=== PATIENT | male | born 1975 | race Asian ===

== ENCOUNTER 2017-12-08 01:37 | Inpatient (IN) | payer MEDICAID ==
[2017-12-08] VITALS (9 sets, daily range): BP systolic 107–132; BP diastolic 59–87
[~2017-12-08] VITALS: Ht 165.1 cm; Wt 64.9 kg
[2017-12-08] MEDS ORDERED: PREDNISOLO15 MG/5 M1 ORAL (01:46)
[2017-12-08] MEDS ORDERED: CALCITRIOL1 MCG/1 ML IV (01:46)
[2017-12-08] MEDS ORDERED: LEVETIRACE100 MG/1 M GT (01:46)
[2017-12-08] MEDS ORDERED: PANTOPRAZOLE SO40 MG ORAL (01:46)
[2017-12-08] MEDS ORDERED: ATENOLOL25 MG ORAL (01:46)
[2017-12-08] MEDS ORDERED: URSO FORTE500 MG PO (02:03)
[2017-12-08] MEDS ORDERED: Lactulose 20gm/30ml UDC ORAL ONE (02:15)
[2017-12-08 02:31] LABS: HEMATOCRIT 22.3 % (42.0-52.0); MEAN CORPUSCULAR VOLUME 74 FL (80-99); PLATELET COUNT 117 K/UL (150-450); RED BLOOD COUNT 3.02 M/UL (4.70-6.10); RED CELL DISTRIBUTION WIDTH 18.4 % (11.6-14.8)
[2017-12-08 02:37] LABS: BILIRUBIN, URINE 3+ (NEGATIVE); GLUCOSE, URINE (UA) NEGATIVE (NEGATIVE); KETONES,URINE 3+ (NEGATIVE); LEUKOCYTE ESTERASE ,URINE 2+ (NEGATIVE); NITRITE,URINE POSITIVE (NEGATIVE); PH,URINE 6.5 (4.5-8.0); PROTEIN,URINE 2+ (NEGATIVE); UROBILINOGEN,URINE 12 MG/DL (0.0-1.0)
--- NOTE | 2017-12-08 02:46 | Emergency Room Report ---
History of Present Illness General Chief Complaint: Altered Mental Status Source: Family Member Present Illness HPI 41YOM brought by family for AMS History of ETOH abuse, ?liver failure Came back from [place] >1 month ago HPI limited by AMS Allergies: Coded Allergies: No Known Allergies (Unverified , 12/08/17) Patient History Past Medical History: other - Liver failure Past Surgical History: unable to obtain Pertinent Family History: unable to obtain Social History: Reports: alcohol use Immunizations: UTD Reviewed Nursing Documentation: PMH: Agreed, PSxH: Agreed Nursing Documentation-PMH Past Medical History Deferred: Pt Cognitively Impaired Review of Systems All Other Systems: limited - AMS Physical Exam Vital Signs Date Time Temp Pulse Resp B/P (MAP) Pulse Ox O2 Delivery O2 Flow Rate FiO2 12/08/17 01:35 113 18 107/59 98 Room Air 12/08/17 01:37 98.0 98.0 Sp02 EP Interpretation: reviewed, normal General Appearance: normal inspection, alert, non-toxic, other - Yelling in stretcher, writhing, Chronically Ill Head: normocephalic, atraumatic Eyes: bilateral eye PERRL, bilateral eye EOMI ENT: normal ENT inspection, hearing grossly normal, normal pharynx, no angioedema, normal voice, TMs + canals normal, uvula midline, moist mucus membranes Neck: normal inspection, full range of motion, supple, thyroid normal, no meningismus, no bony tend Respiratory: normal inspection, lungs clear, normal breath sounds, no rhonchi, no respiratory distress, no retraction, no accessory muscle use, no wheezing, speaking full sentences Cardiovascular #1: regular rate, rhythm, no edema, no JVD, normal capillary refill Gastrointestinal: normal inspection, normal bowel sounds, non tender, soft, no mass, no peritonitis, non-distended, no guarding, no hernia, no pulsatile mass Genitourinary: no CVA tenderness Musculoskeletal: normal inspection, back normal, normal range of motion, no calf tenderness, pelvis stable, Servando's Sign negative Neurologic: normal inspection, alert, responsive, pharmacist per diem III-XII nml as tested, motor strength/tone normal, cerebellar normal, normal gait, speech normal Psychiatric: normal inspection, judgement/insight normal, mood/affect normal, no suicidal/homicidal ideation, no delusions Skin: no rash, jaundice Lymphatic: normal inspection, no adenopathy Medical Decision Making Diagnostic Impression: Primary Impression: Altered mental status Qualified Codes: R41.0 - Disorientation, unspecified Additional Impressions: Hepatic encephalopathy Anemia Qualified Codes: D64.9 - Anemia, unspecified UTI (urinary tract infection) Qualified Codes: N30.01 - Acute cystitis with hematuria Liver failure Qualified Codes: K72.10 - Chronic hepatic failure without coma ER Course AMS likely multifactorial - Nitrite + UTI - given Zosyn - Anemia Hb 7 - transfused 2U PRBC in ED - Hepatic enceph - elevated ammonia level ~200. Given lactulose. Likely d/t liver failure, elevated bili/alk phos, - Elevated troponin 0.07. ECG difficult to interpret d/t artifact/patient altered, noncooperative. Was given ASA for elevated trop, indeterminate ECG. Panel admit to Dr Gray Endorsed to Dr Hernandez at 431am EKG Diagnostic Results Rate: tachycardiac Rhythm: NSR ST Segments: no acute changes Rhythm Strip Diag. Results EP Interpretation: yes Rate: 111 Rhythm: NSR, no PVC's, no ectopy Last Vital Signs Date Time Temp Pulse Resp B/P (MAP) Pulse Ox O2 Delivery O2 Flow Rate FiO2 12/08/17 01:37 98.0 118 18 107/59 100 Room Air 98.0 Status: improved Disposition: ADMITTED INPATIENT Condition: Serious Referrals: NOT CHOSEN GRADY/,REFERRING (PCP) SIDRA MYRICK M.D. Dec 08, 2017 02:46
[2017-12-08 02:47] LABS: ANION GAP 17 mmol/L (5-15); BLOOD UREA NITROGEN 5 mg/dL (7-18); CALCIUM 9.1 MG/DL (8.5-10.1); CARBON DIOXIDE 22 MMOL/L (21-32); CHLORIDE 98 MMOL/L (98-107); CREATININE 1.3 MG/DL (0.55-1.30); SODIUM 137 MMOL/L (136-145)
[2017-12-08 02:48] LABS: AMMONIA 195 umol/L (11-32)
[2017-12-08 02:57] LABS: ALANINE AMINOTRANSFERASE 98 U/L (12-78); ALBUMIN 2.4 G/DL (3.4-5.0); ALBUMIN/GLOBULIN RATIO 0.4 (1.0-2.7); ALKALINE PHOSPHATASE 198 U/L (46-116); ASPARTATE AMINO TRANSFERASE 400 U/L (15-37)
[2017-12-08 03:11] LABS: APPEARANCE,URINE CLOUDY; COLOR,URINE AMBER
[2017-12-08] MEDS ORDERED: Zosyn 3.375gm inj ONE (03:29)
[2017-12-08] MEDS ORDERED: Piperacillin/Tazobactam 3.375 GM in NS 110 ML IVPB ONE (03:30)
[2017-12-08 03:48] LABS: INR 1.5 (0.9-1.1)
[2017-12-08] MEDS ORDERED: LORazepam 1mg tab ORAL PRN (05:45)
[2017-12-08] MEDS ORDERED: Miralax 17gm pkt ORAL PRN (05:45)
--- NOTE | 2017-12-08 10:01 | GI Initial Consult Note ---
History of Present Illness General Date patient seen: Dec 08, 2017 Time patient seen: 09:55 Reason for Hospitalization: Altered Mental Status Referring physician: LORRAINE Reason for Consultation: HEPATIC ENCEPHALOPATHY Present Illness HPI 41YOM brought by family for AMS History of ETOH abuse, ?liver failure Came back from [place] >1 month ago HPI limited by AMS GI consulted for hepatic encephalopathy. Pt seen in tele, awake alart resting in bed with no s/sx of N/V/D or agitation. ROS limited, AMS. Currently receiving abdominal U/S. Abdominal distention noted with ascites. Presents today with anemia, transaminitis with elevated alkaline phos, elevated troponin and elevated lipase levels. Unknown history of endoscopy colonoscopies. Home Meds Reported Medications Ursodiol (HILDA FORTE) 500 Mg Tablet, 500 MG PO, TAB 12/08/17 Atenolol* (TENORMIN*) 25 Mg Tablet, 25 MG ORAL DAILY, TAB 12/08/17 Pantoprazole* (PANTOPRAZOLE*) 40 Mg Tablet.dr, 40 MG ORAL DAILY, TAB 12/08/17 Prednisolone* (PRELONE*) 15 Mg/5 Ml Solution, 15 MG ORAL, ML 12/08/17 Calcitriol (CALCITRIOL*) 1 Mcg/1 Ml Ampul, 0.25 MCG IV, MCG 0 Refills 12/08/17 Levetiracetam* (LEVETIRACETAM*) 100 Mg/1 Ml Solution, 750 MG GT BID 12/08/17 Med list reviewed/reconciled: Yes Allergies: Coded Allergies: No Known Allergies (Unverified , 12/08/17) Patient History Limited by: medical condition History Provided By: Medical Record PMH Narrative Past Medical History: other - Liver failure Past Surgical History: unable to obtain Pertinent Family History: unable to obtain Social History: Reports: alcohol use Immunizations: UTD Reviewed Nursing Documentation: PMH: Agreed, PSxH: Agreed Nursing Documentation-PMH Past Medical History Deferred: Pt Cognitively Impaired Social History: Reports: other - unknown Review of Systems All Other Systems: limited Physical Exam Vital Signs Date Time Temp Pulse Resp B/P (MAP) Pulse Ox O2 Delivery O2 Flow Rate FiO2 12/08/17 01:35 113 18 107/59 98 Room Air 12/08/17 01:37 98.0 98.0 Sp02 EP Interpretation: reviewed, normal Labs Laboratory Tests Test 12/08/17 02:15 12/08/17 03:30 White Blood Count 12.0 K/UL (4.8-10.8) H Red Blood Count 3.02 M/UL (4.70-6.10) L Hemoglobin 7.0 G/DL (14.2-18.0) L Hematocrit 22.3 % (42.0-52.0) L Mean Corpuscular Volume 74 FL (80-99) L Mean Corpuscular Hemoglobin 23.2 PG (27.0-31.0) L Mean Corpuscular Hemoglobin Concent 31.4 G/DL (32.0-36.0) L Red Cell Distribution Width 18.4 % (11.6-14.8) H Platelet Count 117 K/UL (150-450) L Mean Platelet Volume 6.8 FL (6.5-10.1) Neutrophils (%) (Auto) % (45.0-75.0) Lymphocytes (%) (Auto) % (20.0-45.0) Monocytes (%) (Auto) % (1.0-10.0) Eosinophils (%) (Auto) % (0.0-3.0) Basophils (%) (Auto) % (0.0-2.0) Urine Color Esther Urine Appearance Cloudy Urine pH 6.5 (4.5-8.0) Urine Specific Wilson 1.010 (1.005-1.035) Urine Protein 2+ (NEGATIVE) H Urine Glucose (UA) Negative (NEGATIVE) Urine Ketones 3+ (NEGATIVE) H Urine Occult Blood 2+ (NEGATIVE) H Urine Nitrite Positive (NEGATIVE) H Urine Bilirubin 3+ (NEGATIVE) H Urine Ictotest Positive Urine Urobilinogen 12 MG/DL (0.0-1.0) H Urine Leukocyte Esterase 2+ (NEGATIVE) H Urine RBC 2-4 /HPF (0 - 0) H Urine WBC 20-30 /HPF (0 - 0) H Urine Squamous Epithelial Cells Moderate /LPF (NONE/OCC) H Urine Amorphous Sediment Moderate /LPF (NONE) H Urine Bacteria Many /HPF (NONE) H Sodium Level 137 MMOL/L (136-145) Potassium Level 3.0 MMOL/L (3.5-5.1) L Chloride Level 98 MMOL/L (98-107) Carbon Dioxide Level 22 MMOL/L (21-32) Anion Gap 17 mmol/L (5-15) H Blood Urea Nitrogen 5 mg/dL (7-18) L Creatinine 1.3 MG/DL (0.55-1.30) Estimat Glomerular Filtration Rate > 60 mL/min (>60) Glucose Level 101 MG/DL (74-106) Calcium Level 9.1 MG/DL (8.5-10.1) Total Bilirubin 10.0 MG/DL (0.2-1.0) H Direct Bilirubin 7.0 MG/DL (0.0-0.3) H Aspartate Amino Transf (AST/SGOT) 400 U/L (15-37) H Alanine Aminotransferase (ALT/SGPT) 98 U/L (12-78) H Alkaline Phosphatase 198 U/L (46-116) H Ammonia 195 umol/L (11-32) H Troponin I 0.078 ng/mL (0.000-0.056) Total Protein 7.8 G/DL (6.4-8.2) Albumin 2.4 G/DL (3.4-5.0) L Globulin 5.4 g/dL Albumin/Globulin Ratio 0.4 (1.0-2.7) L Lipase 507 U/L (73-393) H Urine Opiates Screen Negative (NEGATIVE) Urine Barbiturates Screen Negative (NEGATIVE) Phencyclidine (PCP) Screen Negative (NEGATIVE) Urine Amphetamines Screen Negative (NEGATIVE) Urine Benzodiazepines Screen Negative (NEGATIVE) Urine Cocaine Screen Negative (NEGATIVE) Urine Marijuana (THC) Screen Negative (NEGATIVE) Prothrombin Time 15.5 SEC (9.30-11.50) H Prothromb Time International Ratio 1.5 (0.9-1.1) H General Appearance: well appearing, no apparent distress, alert, thin Head: normocephalic EENT: PERRL/EOMI, normal ENT inspection Neck: supple Respiratory: normal breath sounds, no respiratory distress Cardiovascular: normal rate Gastrointestinal: normal inspection, non tender, soft, normal bowel sounds, distended, ascites Rectal: deferred Genitourinary: deferred Musculoskeletal: normal inspection, back normal Neurologic: alert, responsive Skin: normal inspection, normal color, no rash, warm/dry, palpation normal, well hydrated Lymphatic: normal inspection, no adenopathy Current Medications Current Medications Medications (Trade) Dose Ordered Sig/Jl Route PRN Reason Start Time Stop Time Status Last Admin Dose Admin Bisacodyl (Dulcolax) 10 mg DAILYPRN PRN RECTAL Constipation 12/08/17 05:45 01/07/18 05:44 Ceftriaxone Sodium 1 gm/ Dextrose 55 ml @ 110 mls/hr Q24H IVPB 12/08/17 06:00 12/15/17 05:59 Dextrose (Dextrose 50%) STAT PRN IV Hypoglycemia 12/08/17 05:45 01/07/18 05:44 Diphenhydramine HCl (Benadryl) 25 mg Q6H PRN ORAL Itching/Pruritis 12/08/17 05:45 01/07/18 05:44 Docusate Sodium (Colace) 100 mg EVERY 12 HOURS ORAL 12/08/17 09:00 01/07/18 08:59 Lactulose (Cephulac) 30 gm THREE TIMES A DAY ORAL 12/08/17 09:00 01/07/18 08:59 Lorazepam (Ativan) 1 mg Q4H PRN ORAL For Anxiety 12/08/17 05:45 12/15/17 05:44 Ondansetron HCl (Zofran) 4 mg Q6H PRN IVP Nausea & Vomiting 12/08/17 05:45 01/07/18 05:44 Pantoprazole (Protonix) 40 mg DAILY IV 12/08/17 09:00 01/07/18 08:59 Polyethylene Glycol (Miralax) 17 gm DAILYPRN PRN ORAL Constipation 12/08/17 05:45 01/07/18 05:44 Rifaximin (Xifaxan) 550 mg EVERY 12 HOURS ORAL 12/08/17 09:00 12/15/17 08:59 GI: Plan Problems: (1) Liver failure (2) Hepatic encephalopathy (3) Altered mental status (4) Anemia Plan cont Lactulose + Xifaxan anemia work up OB stool r/o GI bleed, will consider endoscopy to evaluate EV if positive monitor H&H, prn transfusions bowel regime ppi fu abdominal U/S paracentesis >> r/o SBP trend LFTs, ammonia, lipase fu labs Discussed with Dr. Eckert. Thank you for this patient referral, we will follow. Estela Paredes N.P. Dec 08, 2017 10:01
--- NOTE | 2017-12-08 10:23 | History and Physical ---
History of Present Illness General Date patient seen: Dec 08, 2017 Time patient seen: 10:23 Reason for Hospitalization: Altered Mental Status Present Illness HPI 41y/o male with pmh of alcohol abuse with dependence, cirrhosis who presents with AMS. Pt brought in by family 2/2 AMS. At baseline pt A&Ox3. Pt increasingly confused, lethargic, somnolent. History limited 2/2 AMS. Pt has been drinking alcohol heavily for many years. No reports of f/c, n/v, d/c, chest pain, SOB, abd pain, dysuria. In ED, pt found to have elevated ammonia. He was given lactulose. He was also found to have elevated WBC to 12K. U/A positive. Given ceftriaxone. Hgb 7.0, no active signs of bleeding. Given 2U pRBCs. Allergies: Coded Allergies: No Known Allergies (Unverified , 12/08/17) Medication History Scheduled Atenolol* (Tenormin*), 25 MG ORAL DAILY, (Reported) Levetiracetam* (Levetiracetam*), 750 MG GT BID, (Reported) Pantoprazole* (Pantoprazole*), 40 MG ORAL DAILY, (Reported) Miscellaneous Medications Calcitriol (Calcitriol*), 0.25 MCG IV, (Reported) Prednisolone* (Prelone*), 15 MG ORAL, (Reported) Ursodiol (Nik Forte), 500 MG PO, (Reported) Patient History History Provided By: Patient, Medical Record Healthcare decision maker Resuscitation status Full Code Advanced Directive on File Past Medical/Surgical History Past Medical/Surgical History: (1) Alcohol abuse with physiological dependence (2) Cirrhosis Family History Family History: Patient reports no known family medical history. Social History Social History: (1) lives at home Review of Systems ROS Narrative Unable to obtain given AMS Physical Exam Physical Exam Narrative General: alert, cooperative, no distress, appears stated age, somnolent but arousable Head: normocephalic, without obvious abnormality, atraumatic Eyes: conjunctivae/corneas clear. PERRL, EOM's intact Throat: lips, mucosa, and tongue normal. MMM Neck: supple, symmetrical, trachea midline, and no JVD Lungs: clear to auscultation bilaterally Heart: regular rate and rhythm, S1, S2 normal, no murmur, click, rub or gallop Abdomen: soft, non-tender, bowel sounds normal; +abd distention w/ fluid wave Extremities: extremities normal, atraumatic, no cyanosis or edema Pulses: 2+ and symmetric Skin: skin color, texture, turgor normal; no rashes or lesions Neurologic: grossly normal, no focal deficits Last 24 Hour Vital Signs Date Time Temp Pulse Resp B/P (MAP) Pulse Ox O2 Delivery O2 Flow Rate FiO2 12/08/17 08:15 36.64210 108 18 130/82 99 Room Air 207.5 12/08/17 08:15 97.5 108 18 130/82 99 Room Air 12/08/17 07:59 98.1 98 18 117/73 100 Room Air 98.1 12/08/17 07:30 108 22 120/74 100 Room Air 12/08/17 05:37 98.4 117 17 120/87 100 Room Air 98.4 12/08/17 05:36 98.4 114 17 98.4 12/08/17 03:37 98.2 112 20 120/80 100 Room Air 98.2 12/08/17 01:37 98.0 118 18 107/59 100 Room Air 98.0 12/08/17 01:35 113 18 107/59 98 Room Air Intake and Output 12/07/17 12/08/17 19:00 07:00 Intake Total 100 ml Output Total 200 ml Balance -100 ml Intake IV Total 100 ml Other 0 ml Output Urine Total 200 ml Laboratory Tests Test 12/08/17 02:15 12/08/17 03:30 White Blood Count 12.0 K/UL (4.8-10.8) H Red Blood Count 3.02 M/UL (4.70-6.10) L Hemoglobin 7.0 G/DL (14.2-18.0) L Hematocrit 22.3 % (42.0-52.0) L Mean Corpuscular Volume 74 FL (80-99) L Mean Corpuscular Hemoglobin 23.2 PG (27.0-31.0) L Mean Corpuscular Hemoglobin Concent 31.4 G/DL (32.0-36.0) L Red Cell Distribution Width 18.4 % (11.6-14.8) H Platelet Count 117 K/UL (150-450) L Mean Platelet Volume 6.8 FL (6.5-10.1) Neutrophils (%) (Auto) % (45.0-75.0) Lymphocytes (%) (Auto) % (20.0-45.0) Monocytes (%) (Auto) % (1.0-10.0) Eosinophils (%) (Auto) % (0.0-3.0) Basophils (%) (Auto) % (0.0-2.0) Urine Color Esther Urine Appearance Cloudy Urine pH 6.5 (4.5-8.0) Urine Specific Reading 1.010 (1.005-1.035) Urine Protein 2+ (NEGATIVE) H Urine Glucose (UA) Negative (NEGATIVE) Urine Ketones 3+ (NEGATIVE) H Urine Occult Blood 2+ (NEGATIVE) H Urine Nitrite Positive (NEGATIVE) H Urine Bilirubin 3+ (NEGATIVE) H Urine Ictotest Positive Urine Urobilinogen 12 MG/DL (0.0-1.0) H Urine Leukocyte Esterase 2+ (NEGATIVE) H Urine RBC 2-4 /HPF (0 - 0) H Urine WBC 20-30 /HPF (0 - 0) H Urine Squamous Epithelial Cells Moderate /LPF (NONE/OCC) H Urine Amorphous Sediment Moderate /LPF (NONE) H Urine Bacteria Many /HPF (NONE) H Sodium Level 137 MMOL/L (136-145) Potassium Level 3.0 MMOL/L (3.5-5.1) L Chloride Level 98 MMOL/L (98-107) Carbon Dioxide Level 22 MMOL/L (21-32) Anion Gap 17 mmol/L (5-15) H Blood Urea Nitrogen 5 mg/dL (7-18) L Creatinine 1.3 MG/DL (0.55-1.30) Estimat Glomerular Filtration Rate > 60 mL/min (>60) Glucose Level 101 MG/DL (74-106) Calcium Level 9.1 MG/DL (8.5-10.1) Total Bilirubin 10.0 MG/DL (0.2-1.0) H Direct Bilirubin 7.0 MG/DL (0.0-0.3) H Aspartate Amino Transf (AST/SGOT) 400 U/L (15-37) H Alanine Aminotransferase (ALT/SGPT) 98 U/L (12-78) H Alkaline Phosphatase 198 U/L (46-116) H Ammonia 195 umol/L (11-32) H Troponin I 0.078 ng/mL (0.000-0.056) Total Protein 7.8 G/DL (6.4-8.2) Albumin 2.4 G/DL (3.4-5.0) L Globulin 5.4 g/dL Albumin/Globulin Ratio 0.4 (1.0-2.7) L Lipase 507 U/L (73-393) H Urine Opiates Screen Negative (NEGATIVE) Urine Barbiturates Screen Negative (NEGATIVE) Phencyclidine (PCP) Screen Negative (NEGATIVE) Urine Amphetamines Screen Negative (NEGATIVE) Urine Benzodiazepines Screen Negative (NEGATIVE) Urine Cocaine Screen Negative (NEGATIVE) Urine Marijuana (THC) Screen Negative (NEGATIVE) Prothrombin Time 15.5 SEC (9.30-11.50) H Prothromb Time International Ratio 1.5 (0.9-1.1) H Height (Feet): 5 Height (Inches): 9.00 Weight (Pounds): 160 Medications Current Medications Medications (Trade) Dose Ordered Sig/Jl Route PRN Reason Start Time Stop Time Status Last Admin Dose Admin Bisacodyl (Dulcolax) 10 mg DAILYPRN PRN RECTAL Constipation 12/08/17 05:45 01/07/18 05:44 Ceftriaxone Sodium 1 gm/ Dextrose 55 ml @ 110 mls/hr Q24H IVPB 12/08/17 06:00 12/15/17 05:59 Dextrose (Dextrose 50%) STAT PRN IV Hypoglycemia 12/08/17 05:45 01/07/18 05:44 Diphenhydramine HCl (Benadryl) 25 mg Q6H PRN ORAL Itching/Pruritis 12/08/17 05:45 01/07/18 05:44 Docusate Sodium (Colace) 100 mg EVERY 12 HOURS ORAL 12/08/17 09:00 01/07/18 08:59 Lactulose (Cephulac) 30 gm THREE TIMES A DAY ORAL 12/08/17 09:00 01/07/18 08:59 Lorazepam (Ativan) 1 mg Q4H PRN ORAL For Anxiety 12/08/17 05:45 12/15/17 05:44 Ondansetron HCl (Zofran) 4 mg Q6H PRN IVP Nausea & Vomiting 12/08/17 05:45 01/07/18 05:44 Pantoprazole (Protonix) 40 mg DAILY IV 12/08/17 09:00 01/07/18 08:59 Polyethylene Glycol (Miralax) 17 gm DAILYPRN PRN ORAL Constipation 12/08/17 05:45 01/07/18 05:44 Rifaximin (Xifaxan) 550 mg EVERY 12 HOURS ORAL 12/08/17 09:00 12/15/17 08:59 Assessment/Plan Problem List: (1) Acute hepatic encephalopathy ICD Codes: K72.00 - Acute and subacute hepatic failure without coma SNOMED: 41768616 (2) Alcoholic cirrhosis ICD Codes: K70.30 - Alcoholic cirrhosis of liver without ascites SNOMED: 395367221 (3) Coagulopathy ICD Codes: D68.9 - Coagulation defect, unspecified SNOMED: 17455045 (4) Anemia of chronic disease ICD Codes: D63.8 - Anemia in other chronic diseases classified elsewhere SNOMED: 539876264 (5) Sepsis ICD Codes: A41.9 - Sepsis, unspecified organism SNOMED: 69241934 (6) UTI (urinary tract infection) ICD Codes: N39.0 - Urinary tract infection, site not specified SNOMED: 08131759 Qualifiers: Qualified Codes: N30.01 - Acute cystitis with hematuria Status: stable Assessment/Plan Admit inpt GI consulted Lactulose + Rifaximin Monitor mental status closely s/p 2U pRBCs with inadequate response Anemia workup sent: Fe panel, ferritin, B12, folate, TSH Check FOBT Trend CBC Paracentesis ordered to r/o SBP Empiric ceftriaxone for UTI F/u urine cultures SW consult for substance abuse resources Pain control, bowel regimen Supportive care FULL CODE D/w pt, RN, SW/CM, GI regarding mgmt and dispo Mary Monae M.D. Dec 08, 2017 10:23
[2017-12-08] MEDS: cefTRIAXone 1 GM in D5W 55 ML IVPB SCH (11:22)
[2017-12-08] MEDS: Pantoprazole Inj IV SCH (11:23)
[2017-12-08] MEDS: Lactulose 20gm/30ml UDC ORAL SCH ×3 (11:24→18:35)
[2017-12-08] MEDS: Docusate 100mg cap ORAL SCH ×2 (11:24→20:46)
--- NOTE | 2017-12-08 11:39 | Diagnostic Imaging Report ---
Indication: Abdominal pain Technique: Butt-scale and duplex images of the upper abdomen were obtained Comparison: Abdominal pain Findings: Exam is somewhat limited, due to limited ability the patient cooperate. Gallbladder is nondistended. No definite gallstones are demonstrated. There is apparent gallbladder wall thickening, measuring 4 mm in thickness, but this is probably artifact due to underdistention Sonographic Dominguez's sign is negative. Common bile duct measures 3 mm in diameter. No intrahepatic biliary ductal dilatation. Liver demonstrates coarsened echogenicity. No focal abnormality. No definite surface nodularity Portal vein and hepatic veins are patent. There is a small amount of ascites fluid Pancreas is incompletely visualized due to overlying bowel gas, visualized portions are unremarkable. Spleen is unremarkable, upper limits of normal in size. Left kidney measures 11.2 cm in length. Right kidney measures 12.5 cm length. Both kidneys demonstrate normal echogenicity. There is no hydronephrosis. No focal abnormality . Abdominal aorta is partially obscured by bowel gas, visualized portions are non-aneurysmal . Impression: Nondistended gallbladder, node definite gallstones apparent gallbladder wall thickening, probably artifact due to nondistention. Negative for dilated duct Coarsened hepatic echogenicity, nonspecific but suggesting hepatocellular disease Trace ascites Note suboptimal visualization of the pancreas and abdominal aorta
[2017-12-08] MEDS ORDERED: Phytonadione 1 MG in D5W 55 ML IVPB ONE (13:00)
--- NOTE | 2017-12-08 14:25 | Diagnostic Imaging Report ---
Indications: Ascites Technique: Ultrasound used to localize optimal puncture site. Sterile prepping and draping . Local anesthesia with 1% lidocaine. Under real-time ultrasound guidance, puncture peritoneal space using paracentesis needle. Stylet removed. A specimen was obtained and sent to the lab Catheter placed to vacuum bottle suction. Only a small amount of fluid aspirated from the initial puncture, but sonographic imaging demonstrated residual pleural fluid. The peritoneal space was reaccessed using a Yueh needle. Total 600 mL of fluid aspirated. Patient tolerated procedure well, without immediate complication. Findings: Followup sonography demonstrates complete resolution of peritoneal fluid. Impression: Successful ultrasound-guided paracentesis, yielding 600 mL clear yellow fluid
[2017-12-08 15:30] LABS: HEMATOCRIT 24.7 % (42.0-52.0); HEMOGLOBIN 8.1 G/DL (14.2-18.0); MEAN CORPUSCULAR VOLUME 75 FL (80-99); PLATELET COUNT 94 K/UL (150-450); RED BLOOD COUNT 3.28 M/UL (4.70-6.10); RED CELL DISTRIBUTION WIDTH 18.2 % (11.6-14.8); WHITE BLOOD COUNT 10.5 K/UL (4.8-10.8)
[2017-12-08 16:28] LABS: % IRON SATURATION 113 % (15-50); IRON 81 ug/dL (50-175); TOTAL IRON BINDING CAPACITY 72 ug/dL (250-450)
[2017-12-08 16:31] LABS: FERRITIN > 2000 NG/ML (8-388)
[2017-12-08 16:56] LABS: ALANINE AMINOTRANSFERASE 87 U/L (12-78); ALBUMIN 2.4 G/DL (3.4-5.0); ALBUMIN/GLOBULIN RATIO 0.5 (1.0-2.7); ALKALINE PHOSPHATASE 178 U/L (46-116); ANION GAP 12 mmol/L (5-15); ASPARTATE AMINO TRANSFERASE 370 U/L (15-37); BILIRUBIN,TOTAL 11.5 MG/DL (0.2-1.0); BLOOD UREA NITROGEN 5 mg/dL (7-18); CALCIUM 9.3 MG/DL (8.5-10.1); CARBON DIOXIDE 26 MMOL/L (21-32); CHLORIDE 101 MMOL/L (98-107); CREATININE 1.1 MG/DL (0.55-1.30); SODIUM 139 MMOL/L (136-145)
[2017-12-08 17:00] LABS: POTASSIUM 2.4 MMOL/L (3.5-5.1)
[2017-12-08 17:10] LABS: BILIRUBIN,DIRECT 8.4 MG/DL (0.0-0.3)
[2017-12-08] MEDS: Thiamine 100mg tab ORAL SCH (18:35)
[2017-12-08] MEDS: Multivitamin w/Minerals tab ORAL SCH (18:36)
[2017-12-08] MEDS ORDERED: Potassium Chloride 20 MEQ/ NS 275 ML IVPB ONE ×2 (20:00)
[2017-12-09] VITALS: BP 124/84
[2017-12-09 04:00] VITALS: BP 134/83
[2017-12-09] MEDS: cefTRIAXone 1 GM in D5W 55 ML IVPB SCH (05:43)
[2017-12-09 08:09] VITALS: BP 115/77
--- NOTE | 2017-12-09 08:20 | Cardiology Report ---
APPROVED REPORT EXAM: Two-dimensional and M-mode echocardiogram with Doppler and color Doppler. INDICATION Shortness of breath M-Mode DIMENSIONS IVSd0.7 (0.7-1.1cm)Left Atrium (MM)3.9 (1.6-4.0cm) LVDd5.8 (3.5-5.6cm)Aortic Root3.7 (2.0-3.7cm) PWd1.0 (0.7-1.1cm)Aortic Cusp Exc.2.2 (1.5-2.0cm) LVDs4.3 (2.5-4.0cm) PWs0.9 cm Normal left ventricular chamber size, systolic function and wall motion. Left ventricular ejection fraction estimated to be 60-65 %. No evidence of left ventricular hypertrophy. Anterior Echo-free space, may be due to pericardial fat or effusion. All other cardiac chamber sizes are within normal limits. Focal aortic valve sclerosis with adequate cusp excursion. Thickened mitral valve leaflets with normal excursion. Mild mitral annulus and aortic root calcification. Normal pulmonic valve structure. Normal tricuspid valve structure. IVC at normal size with physiologic collapse. A color flow and spectral Doppler study was performed and revealed: No aortic regurgitation. Trace mitral regurgitation. Mitral diastolic velocities suggest mild left ventricular dysfunction (Grade I ). Trace tricuspid regurgitation. Tricuspid systolic velocities suggests peak right ventricular systolic pressure of 13 mmHg. No pulmonic regurgitation present.
[2017-12-09] MEDS: Multivitamin w/Minerals tab ORAL SCH (08:26)
[2017-12-09] MEDS: Lactulose 20gm/30ml UDC ORAL SCH ×3 (08:26→19:46)
[2017-12-09] MEDS: Thiamine 100mg tab ORAL SCH (08:27)
[2017-12-09] MEDS: Docusate 100mg cap ORAL SCH ×2 (08:27→21:14)
[2017-12-09] MEDS: Pantoprazole Inj IV SCH (08:27)
--- NOTE | 2017-12-09 08:33 | Cardiology Report ---
APPROVED REPORT EKG Measurement Heart [id number] Sinus tachycardia Nonspecific ST and T wave abnormality Abnormal ECG
[2017-12-09 08:44] LABS: HEMATOCRIT 23.5 % (42.0-52.0); HEMOGLOBIN 7.8 G/DL (14.2-18.0); MEAN CORPUSCULAR VOLUME 75 FL (80-99); PLATELET COUNT 100 K/UL (150-450); RED BLOOD COUNT 3.14 M/UL (4.70-6.10); RED CELL DISTRIBUTION WIDTH 18.3 % (11.6-14.8); WHITE BLOOD COUNT 9.2 K/UL (4.8-10.8)
[2017-12-09 08:53] LABS: INR 1.6 (0.9-1.1)
--- NOTE | 2017-12-09 09:06 | Diagnostic Imaging Report ---
Indication: Reason For Exam: SOB Technique: One view of the chest Comparison: none Findings: Lungs and pleural spaces are clear. Heart size is normal Impression: No acute process This agrees with the preliminary interpretation provided overnight by [facility] teleradiology service.
[2017-12-09 09:15] LABS: ALANINE AMINOTRANSFERASE 70 U/L (12-78); ALBUMIN/GLOBULIN RATIO 0.4 (1.0-2.7); ALKALINE PHOSPHATASE 151 U/L (46-116); ANION GAP 8 mmol/L (5-15); ASPARTATE AMINO TRANSFERASE 267 U/L (15-37); BILIRUBIN,DIRECT 6.1 MG/DL (0.0-0.3); BILIRUBIN,TOTAL 8.8 MG/DL (0.2-1.0); BLOOD UREA NITROGEN 5 mg/dL (7-18); CALCIUM 8.5 MG/DL (8.5-10.1); CARBON DIOXIDE 25 MMOL/L (21-32); CHLORIDE 105 MMOL/L (98-107); CREATININE 0.9 MG/DL (0.55-1.30); SODIUM 138 MMOL/L (136-145)
[2017-12-09 12:00] VITALS: BP 137/86
--- NOTE | 2017-12-09 12:26 | GI Progress Note ---
Assessment/Plan Problems: (1) Bloody stool ICD Codes: K92.1 - Melena SNOMED: 959758922 (2) Hepatic encephalopathy ICD Codes: K72.90 - Hepatic failure, unspecified without coma SNOMED: 07906132 (3) Altered mental status ICD Codes: R41.82 - Altered mental status, unspecified SNOMED: 696370807 Qualifiers: Qualified Codes: R41.0 - Disorientation, unspecified (4) Anemia ICD Codes: D64.9 - Anemia, unspecified SNOMED: 226686266 Qualifiers: Qualified Codes: D64.9 - Anemia, unspecified Status: progressing Status Narrative Discussed with Dr. Eckert. Assessment/Plan hep panel negative elevated lipase, ammonia levels iron overload abdominal U/S reviewed >> Hepatocellular disease. No ductal dilation. s/p paracentesis yielding 600 cc fluid r/o SBP EGD/colonoscopy scheduled for tomorrow. - CLD now, NPO @ [place]. - hold all blood thinners tonight. cont Lactulose + Xifaxan monitor H&H, prn transfusions bowel regime ppi trend LFTs, ammonia, lipase fu labs Subjective Gastrointestinal/Abdominal: Reports: abdomen distended Subjective feels better, more alert Objective Last 24 Hour Vital Signs Date Time Temp Pulse Resp B/P (MAP) Pulse Ox O2 Delivery O2 Flow Rate FiO2 12/09/17 12:00 97.0 94 20 137/86 96 Room Air 12/09/17 08:09 97.7 91 18 115/77 96 Room Air 12/09/17 08:00 93 12/09/17 04:00 98.2 98 20 134/83 96 Room Air 12/09/17 04:00 94 12/09/17 00:00 98.4 100 18 124/84 97 Room Air 12/09/17 00:00 106 12/08/17 20:00 102 12/08/17 20:00 99.3 104 18 132/86 95 Room Air 12/08/17 16:00 103 12/08/17 16:00 97.5 101 20 121/79 98 Room Air Intake and Output 12/08/17 12/09/17 19:00 07:00 Intake Total 300 ml 840 ml Output Total 100 ml Balance 200 ml 840 ml Intake Oral 50 ml 400 ml IV Total 440 ml Blood Product 250 ml Output Urine Total 100 ml # Bowel Movements 2 Laboratory Tests Test 12/08/17 13:50 12/08/17 14:40 12/09/17 07:14 Stool Occult Blood Pending White Blood Count 10.5 K/UL (4.8-10.8) 9.2 K/UL (4.8-10.8) Red Blood Count 3.28 M/UL (4.70-6.10) L 3.14 M/UL (4.70-6.10) L Hemoglobin 8.1 G/DL (14.2-18.0) L 7.8 G/DL (14.2-18.0) L Hematocrit 24.7 % (42.0-52.0) L 23.5 % (42.0-52.0) L Mean Corpuscular Volume 75 FL (80-99) L 75 FL (80-99) L Mean Corpuscular Hemoglobin 24.6 PG (27.0-31.0) L 24.8 PG (27.0-31.0) L Mean Corpuscular Hemoglobin Concent 32.7 G/DL (32.0-36.0) 33.2 G/DL (32.0-36.0) Red Cell Distribution Width 18.2 % (11.6-14.8) H 18.3 % (11.6-14.8) H Platelet Count 94 K/UL (150-450) L 100 K/UL (150-450) L Mean Platelet Volume 6.4 FL (6.5-10.1) L 10.4 FL (6.5-10.1) H Neutrophils (%) (Auto) % (45.0-75.0) % (45.0-75.0) Lymphocytes (%) (Auto) % (20.0-45.0) % (20.0-45.0) Monocytes (%) (Auto) % (1.0-10.0) % (1.0-10.0) Eosinophils (%) (Auto) % (0.0-3.0) % (0.0-3.0) Basophils (%) (Auto) % (0.0-2.0) % (0.0-2.0) Differential Total Cells Counted 100 100 Neutrophils % (Manual) 74 % (45-75) 71 % (45-75) Lymphocytes % (Manual) 16 % (20-45) L 20 % (20-45) Monocytes % (Manual) 9 % (1-10) 8 % (1-10) Eosinophils % (Manual) 1 % (0-3) 0 % (0-3) Basophils % (Manual) 0 % (0-2) 1 % (0-2) Band Neutrophils 0 % (0-8) 0 % (0-8) Platelet Estimate Decreased L Decreased L Platelet Morphology Normal Normal Hypochromasia 2+ 2+ Anisocytosis 2+ 2+ Target Cells 2+ 1+ Sodium Level 139 MMOL/L (136-145) 138 MMOL/L (136-145) Potassium Level 2.4 MMOL/L (3.5-5.1) *L 3.0 MMOL/L (3.5-5.1) L Chloride Level 101 MMOL/L (98-107) 105 MMOL/L (98-107) Carbon Dioxide Level 26 MMOL/L (21-32) 25 MMOL/L (21-32) Anion Gap 12 mmol/L (5-15) 8 mmol/L (5-15) Blood Urea Nitrogen 5 mg/dL (7-18) L 5 mg/dL (7-18) L Creatinine 1.1 MG/DL (0.55-1.30) 0.9 MG/DL (0.55-1.30) Estimat Glomerular Filtration Rate > 60 mL/min (>60) > 60 mL/min (>60) Glucose Level 152 MG/DL (74-106) H 131 MG/DL (74-106) H Calcium Level 9.3 MG/DL (8.5-10.1) 8.5 MG/DL (8.5-10.1) Magnesium Level 1.5 MG/DL (1.8-2.4) L 2.0 MG/DL (1.8-2.4) Iron Level 81 ug/dL (50-175) Total Iron Binding Capacity 72 ug/dL (250-450) L Percent Iron Saturation 113 % (15-50) H Unsaturated Iron Binding -9 ug/dL (112-346) L Ferritin > 2000 NG/ML (8-388) H Total Bilirubin 11.5 MG/DL (0.2-1.0) H 8.8 MG/DL (0.2-1.0) H Direct Bilirubin 8.4 MG/DL (0.0-0.3) H 6.1 MG/DL (0.0-0.3) H Aspartate Amino Transf (AST/SGOT) 370 U/L (15-37) H 267 U/L (15-37) H Alanine Aminotransferase (ALT/SGPT) 87 U/L (12-78) H 70 U/L (12-78) Alkaline Phosphatase 178 U/L (46-116) H 151 U/L (46-116) H Troponin I 0.106 ng/mL (0.000-0.056) 0.048 ng/mL (0.000-0.056) Pro-B-Type Natriuretic Peptide 3588 pg/mL (0-125) H Total Protein 7.5 G/DL (6.4-8.2) 6.8 G/DL (6.4-8.2) Albumin 2.4 G/DL (3.4-5.0) L 2.0 G/DL (3.4-5.0) L Globulin 5.1 g/dL 4.8 g/dL Albumin/Globulin Ratio 0.5 (1.0-2.7) L 0.4 (1.0-2.7) L Vitamin B12 Level > 2000 PG/ML (193-986) H Vitamin D 25-Hydroxy Pending 25-Hydroxy Vitamin D2 Pending 25-Hydroxy Vitamin D3 Pending Folate 5.3 NG/ML (8.6-58.9) L Thyroid Stimulating Hormone (TSH) 2.192 uiU/mL (0.358-3.740) Hepatitis A IgM Antibody Negative (Negative) Hepatitis B Surface Antigen Negative (Negative) Hepatitis B Core IgM Antibody Negative (Negative) Hepatitis C Antibody 0.1 s/co ratio (0.0-0.9) Microcytosis 1+ Reticulocyte Count 1.6 % (0.0-2.0) Prothrombin Time 17.3 SEC (9.30-11.50) H Prothromb Time International Ratio 1.6 (0.9-1.1) H Activated Partial Thromboplast Time 35 SEC (23-33) H Ammonia 109 umol/L (11-32) H Lipase 787 U/L (73-393) H Free Thyroxine 1.66 NG/DL (0.76-1.46) H Height (Feet): 5 Height (Inches): 9.00 Weight (Pounds): 160 General Appearance: WD/WN, no apparent distress, alert, thin Cardiovascular: normal rate Respiratory/Chest: normal breath sounds, no respiratory distress Abdominal Exam: normal bowel sounds, non tender, soft Extremities: non-tender Estela Paredes N.P. Dec 09, 2017 12:26
[2017-12-09 16:00] VITALS: BP 130/87
[2017-12-09] MEDS ORDERED: Magnesium Citrate Liq Btl ORAL ONE (16:00)
[2017-12-09] MEDS ORDERED: Polyethylene Glycol 238gm bottle ORAL ONE (16:00)
--- NOTE | 2017-12-09 16:08 | Cardiac Electrophysiology PN ---
Subjective Subjective [id number] Objective Last 24 Hour Vital Signs Date Time Temp Pulse Resp B/P (MAP) Pulse Ox O2 Delivery O2 Flow Rate FiO2 12/09/17 12:00 97.0 94 20 137/86 96 Room Air 12/09/17 08:09 97.7 91 18 115/77 96 Room Air 12/09/17 08:00 93 12/09/17 04:00 98.2 98 20 134/83 96 Room Air 12/09/17 04:00 94 12/09/17 00:00 98.4 100 18 124/84 97 Room Air 12/09/17 00:00 106 12/08/17 20:00 102 12/08/17 20:00 99.3 104 18 132/86 95 Room Air Intake and Output 12/08/17 12/09/17 19:00 07:00 Intake Total 300 ml 840 ml Output Total 100 ml Balance 200 ml 840 ml Intake Oral 50 ml 400 ml IV Total 440 ml Blood Product 250 ml Output Urine Total 100 ml # Bowel Movements 2 Laboratory Tests Test 12/09/17 07:14 White Blood Count 9.2 K/UL (4.8-10.8) Red Blood Count 3.14 M/UL (4.70-6.10) L Hemoglobin 7.8 G/DL (14.2-18.0) L Hematocrit 23.5 % (42.0-52.0) L Mean Corpuscular Volume 75 FL (80-99) L Mean Corpuscular Hemoglobin 24.8 PG (27.0-31.0) L Mean Corpuscular Hemoglobin Concent 33.2 G/DL (32.0-36.0) Red Cell Distribution Width 18.3 % (11.6-14.8) H Platelet Count 100 K/UL (150-450) L Mean Platelet Volume 10.4 FL (6.5-10.1) H Neutrophils (%) (Auto) % (45.0-75.0) Lymphocytes (%) (Auto) % (20.0-45.0) Monocytes (%) (Auto) % (1.0-10.0) Eosinophils (%) (Auto) % (0.0-3.0) Basophils (%) (Auto) % (0.0-2.0) Differential Total Cells Counted 100 Neutrophils % (Manual) 71 % (45-75) Lymphocytes % (Manual) 20 % (20-45) Monocytes % (Manual) 8 % (1-10) Eosinophils % (Manual) 0 % (0-3) Basophils % (Manual) 1 % (0-2) Band Neutrophils 0 % (0-8) Platelet Estimate Decreased L Platelet Morphology Normal Hypochromasia 2+ Anisocytosis 2+ Microcytosis 1+ Target Cells 1+ Reticulocyte Count 1.6 % (0.0-2.0) Prothrombin Time 17.3 SEC (9.30-11.50) H Prothromb Time International Ratio 1.6 (0.9-1.1) H Activated Partial Thromboplast Time 35 SEC (23-33) H Sodium Level 138 MMOL/L (136-145) Potassium Level 3.0 MMOL/L (3.5-5.1) L Chloride Level 105 MMOL/L (98-107) Carbon Dioxide Level 25 MMOL/L (21-32) Anion Gap 8 mmol/L (5-15) Blood Urea Nitrogen 5 mg/dL (7-18) L Creatinine 0.9 MG/DL (0.55-1.30) Estimat Glomerular Filtration Rate > 60 mL/min (>60) Glucose Level 131 MG/DL (74-106) H Calcium Level 8.5 MG/DL (8.5-10.1) Magnesium Level 2.0 MG/DL (1.8-2.4) Total Bilirubin 8.8 MG/DL (0.2-1.0) H Direct Bilirubin 6.1 MG/DL (0.0-0.3) H Aspartate Amino Transf (AST/SGOT) 267 U/L (15-37) H Alanine Aminotransferase (ALT/SGPT) 70 U/L (12-78) Alkaline Phosphatase 151 U/L (46-116) H Ammonia 109 umol/L (11-32) H Troponin I 0.048 ng/mL (0.000-0.056) Total Protein 6.8 G/DL (6.4-8.2) Albumin 2.0 G/DL (3.4-5.0) L Globulin 4.8 g/dL Albumin/Globulin Ratio 0.4 (1.0-2.7) L Lipase 787 U/L (73-393) H Free Thyroxine 1.66 NG/DL (0.76-1.46) H Microbiology Date/Time Source Procedure Growth Status 12/08/17 02:15 Urine,Clean Catch Urine Culture - Preliminary Gram Negative Bacillus 1 Resulted YAW SCHUSTER Dec 09, 2017 16:08
[2017-12-09 20:00] VITALS: BP 129/87
[2017-12-09] MEDS ORDERED: Fleet's Enema 133ml RECTAL ONE (23:00)
--- NOTE | 2017-12-09 23:13 | General Progress Note ---
Assessment/Plan Problem List: (1) Acute hepatic encephalopathy ICD Codes: K72.00 - Acute and subacute hepatic failure without coma SNOMED: 57912046 (2) Alcoholic cirrhosis ICD Codes: K70.30 - Alcoholic cirrhosis of liver without ascites SNOMED: 364381900 (3) Acute blood loss anemia ICD Codes: D62 - Acute posthemorrhagic anemia SNOMED: 266485696 (4) Alcohol abuse with physiological dependence ICD Codes: F10.20 - Alcohol dependence, uncomplicated SNOMED: 84307887, 28169900 (5) Coagulopathy ICD Codes: D68.9 - Coagulation defect, unspecified SNOMED: 00959971 (6) Anemia of chronic disease ICD Codes: D63.8 - Anemia in other chronic diseases classified elsewhere SNOMED: 178294605 (7) Sepsis ICD Codes: A41.9 - Sepsis, unspecified organism SNOMED: 18509359 (8) UTI (urinary tract infection) ICD Codes: N39.0 - Urinary tract infection, site not specified SNOMED: 11552313 Qualifiers: Qualified Codes: N30.01 - Acute cystitis with hematuria Assessment/Plan GI consulted Lactulose + Rifaximin Monitor mental status closely Plan for EGD and colo tomorrow CLD now, then NPO at [place] Bowel prep per GI s/p 2U pRBCs with inadequate response Transfuse 2U pRBCs today Anemia workup sent: Fe panel, ferritin, B12, folate, TSH Check FOBT Trend CBC s/p paracentesis on 12/10/17 w/ 600mL removed. No e/o SBP Empiric ceftriaxone for UTI F/u urine cultures Cardiology consulted given elevated troponin Trend trop/EKG Check TTE SW consult for substance abuse resources Pain control, bowel regimen Supportive care FULL CODE D/w pt, RN, SW/CM, GI regarding mgmt and dispo Subjective Date patient seen: Dec 10, 2017 Time patient seen: 14:00 ROS Limited/Unobtainable: Yes Constitutional: Reports: malaise, weakness Cardiovascular: Reports: no symptoms Respiratory: Reports: no symptoms Gastrointestinal/Abdominal: Reports: no symptoms Genitourinary: Reports: no symptoms Neurologic/Psychiatric: Reports: no symptoms Endocrine: Reports: no symptoms Hematologic/Lymphatic: Reports: no symptoms Allergies: Coded Allergies: No Known Allergies (Unverified , 12/08/17) All Systems: reviewed and negative except above Subjective No acute o/n events s/p paracentesis yesterday w/ 600mL removed. Fluid studies neg for SBP Hgb drop to 7.8 --> 2U pRBCs ordered Had some hematochezia today Pt more awake, alert. Denies pain, f/c, chest pain, SOB, abd pain. +BMs w/ some blood Objective Last 24 Hour Vital Signs Date Time Temp Pulse Resp B/P (MAP) Pulse Ox O2 Delivery O2 Flow Rate FiO2 12/09/17 20:00 92 12/09/17 20:00 97.7 93 20 129/87 95 Room Air 97.7 12/09/17 16:00 89 12/09/17 16:00 97.3 89 18 130/87 96 Room Air 97.3 12/09/17 12:00 97.0 94 20 137/86 96 Room Air 12/09/17 12:00 89 12/09/17 08:09 97.7 91 18 115/77 96 Room Air 12/09/17 08:00 93 12/09/17 04:00 98.2 98 20 134/83 96 Room Air 12/09/17 04:00 94 12/09/17 00:00 98.4 100 18 124/84 97 Room Air 12/09/17 00:00 106 Intake and Output 12/08/17 12/09/17 19:00 07:00 Intake Total 300 ml 840 ml Output Total 100 ml Balance 200 ml 840 ml Intake Oral 50 ml 400 ml IV Total 440 ml Blood Product 250 ml Output Urine Total 100 ml # Bowel Movements 2 Laboratory Tests 12/09/17 07:14: White Blood Count 9.2, Red Blood Count 3.14L, Hemoglobin 7.8L, Hematocrit 23.5L , Mean Corpuscular Volume 75L, Mean Corpuscular Hemoglobin 24.8L, Mean Corpuscular Hemoglobin Concent 33.2, Red Cell Distribution Width 18.3H, Platelet Count 100L, Mean Platelet Volume 10.4H, Neutrophils (%) (Auto) , Lymphocytes (%) (Auto) , Monocytes (%) (Auto) , Eosinophils (%) (Auto) , Basophils (%) (Auto) , Differential Total Cells Counted 100, Neutrophils % ( Manual) 71, Lymphocytes % (Manual) 20, Monocytes % (Manual) 8, Eosinophils % ( Manual) 0, Basophils % (Manual) 1, Band Neutrophils 0, Platelet Estimate DecreasedL, Platelet Morphology Normal, Hypochromasia 2+, Anisocytosis 2+, Microcytosis 1+, Target Cells 1+, Reticulocyte Count 1.6, Prothrombin Time 17.3H , Prothromb Time International Ratio 1.6H, Activated Partial Thromboplast Time 35H, Sodium Level 138, Potassium Level 3.0L, Chloride Level 105, Carbon Dioxide Level 25, Anion Gap 8, Blood Urea Nitrogen 5L, Creatinine 0.9, Estimat Glomerular Filtration Rate > 60, Glucose Level 131H, Calcium Level 8.5, Magnesium Level 2.0, Total Bilirubin 8.8H, Direct Bilirubin 6.1H, Aspartate Amino Transf (AST/SGOT) 267H, Alanine Aminotransferase (ALT/SGPT) 70, Alkaline Phosphatase 151H, Ammonia 109H, Troponin I 0.048, Total Protein 6.8, Albumin 2.0L, Globulin 4.8, Albumin/Globulin Ratio 0.4L, Lipase 787H, Free Thyroxine 1.66H Height (Feet): 5 Height (Inches): 9.00 Weight (Pounds): 160 Objective General: alert, cooperative, no distress, appears stated age Head: normocephalic, without obvious abnormality, atraumatic Eyes: conjunctivae/corneas clear. PERRL, EOM's intact Throat: lips, mucosa, and tongue normal. MMM Neck: supple, symmetrical, trachea midline, and no JVD Lungs: clear to auscultation bilaterally Heart: regular rate and rhythm, S1, S2 normal, no murmur, click, rub or gallop Abdomen: soft, non-tender, mildly distended, bowel sounds normal; Extremities: extremities normal, atraumatic, no cyanosis or edema Pulses: 2+ and symmetric Skin: skin color, texture, turgor normal; no rashes or lesions Neurologic: grossly normal, no focal deficits Mary Monae M.D. Dec 09, 2017 23:13
--- NOTE | 2017-12-09 23:15 | Consultation ---
DATE OF CONSULTATION: 12/09/2017 CARDIOLOGY CONSULTATION CONSULTING PHYSICIAN: Christopher Petersen M.D. REASON FOR CONSULTATION: Tachycardia and elevated troponin. HISTORY OF PRESENT ILLNESS: The patient is a 41-year-old gentleman from [place] with history of heavy alcohol use and alcoholic cirrhosis. He came back from [place] about a month ago and was admitted for abdominal distention and ascites. The patient also had anemia with transaminitis, elevated troponin, and elevated lipase level. The patient was admitted and Cardiology consultation was obtained for further evaluation and management. PAST MEDICAL HISTORY: 1. Hypertension. 2. History of alcoholic cirrhosis. FAMILY HISTORY: Noncontributory. REVIEW OF SYSTEMS: Review of systems was negative other than what was mentioned in the history of present illness. PHYSICAL EXAMINATION: VITAL SIGNS: Blood pressure of 137/86, pulse 94, respirations 20, and temperature 97. HEAD AND NECK: Shows no JVD. LUNGS: Coarse rhonchi. CARDIOVASCULAR: Shows regular S1 and S2 with no gallop or murmur. ABDOMEN: Soft ascites. EXTREMITIES: No pitting edema. LABORATORY AND DIAGNOSTIC DATA: His labs show white count of 9.2, hemoglobin of 7.8, hematocrit of 23, and platelet count of 100. Sodium is 138, potassium 3.0, BUN of 5, creatinine 0.9, and glucose 131. Troponin initially was 0.10 and second one is 0.048. Total bilirubin is 6.1. ASSESSMENT AND PLAN: 1. Initial troponin leak. The second troponin is negative. The patient does not have any chest pain, not a candidate for stress test. 2. The patient has advanced cirrhosis of the liver and hyperbilirubinemia. 3. Tachycardia. It is sinus tachycardia with no evidence of atrial fibrillation or supraventricular tachycardia. His echocardiogram showed ejection fraction of 60% to 65% with diastolic dysfunction. 4. Alcoholic cirrhosis and hepatic encephalopathy. 5. Anemia. 6. Bloody stool with melena. Evaluation by Dr. Eckert. 7. Ascites, status post paracentesis of 600 mL fluid. The patient also scheduled for esophagogastroduodenoscopy and colonoscopy tomorrow. Continue the lactulose and Xifaxan. Thank you very much for allowing me to participate in the care of this patient. Please do not hesitate to contact me if you have any questions regarding my evaluation. Christopher Petersen M.D. DR: MADISYN JOB#: [id number] CC:
[2017-12-10] VITALS (12 sets, daily range): BP systolic 118–149; BP diastolic 75–101
[2017-12-10] MEDS ORDERED: cefTRIAXone 1 GM in NS 55 ML IVPB SCH (06:00)
[2017-12-10 08:28] LABS: HEMATOCRIT 30.9 % (42.0-52.0); HEMOGLOBIN 10.2 G/DL (14.2-18.0); MEAN CORPUSCULAR VOLUME 77 FL (80-99); PLATELET COUNT 92 K/UL (150-450); RED BLOOD COUNT 4.03 M/UL (4.70-6.10); RED CELL DISTRIBUTION WIDTH 18.1 % (11.6-14.8); WHITE BLOOD COUNT 8.1 K/UL (4.8-10.8)
[2017-12-10 08:35] LABS: INR 1.6 (0.9-1.1)
[2017-12-10 08:39] LABS: ANION GAP 7 mmol/L (5-15); BLOOD UREA NITROGEN 4 mg/dL (7-18); CALCIUM 8.9 MG/DL (8.5-10.1); CARBON DIOXIDE 26 MMOL/L (21-32); CHLORIDE 106 MMOL/L (98-107); POTASSIUM 2.8 MMOL/L (3.5-5.1); SODIUM 140 MMOL/L (136-145)
[2017-12-10] MEDS ORDERED: Propofol 200mg/20ml IV ONE (08:45)
[2017-12-10] MEDS ORDERED: Midazolam 2mg/2ml Inj ONE (08:45)
[2017-12-10] MEDS ORDERED: Lidocaine 1% MPF 10mg/ml 5ml ONE (08:45)
[2017-12-10] MEDS ORDERED: NS 500ML IV ONE (08:50)
[2017-12-10 08:58] LABS: AMMONIA 47 umol/L (11-32)
--- NOTE | 2017-12-10 09:08 | Pre-Procedure Note/Attestation ---
Pre-Procedure Note/Attestation Complete Prior to Procedure Planned Procedure: not applicable Procedure Narrative: esophagogastroduodenoscopy and colonoscopy Indications for Procedure Pre-Operative Diagnosis: gib Attestation I attest that I discussed the nature of the procedure; its benefits; risks and complications; and alternatives (and the risks and benefits of such alternatives ), prior to the procedure, with the patient (or the patient's legal service representative). I attest that, if there was a reasonable possibility of needing a blood transfusion, the patient (or the patient's legal service representative) was given the [facility] standardized written summary, pursuant to the Shawn Kyleigh Blood Safety Act ([place] Health and Safety Code # 1645, as amended). I attest that I re-evaluated the patient just prior to the surgery and that there has been no change in the patient's H&P, except as documented below: ZACK LEBRON Dec 10, 2017 09:08
--- NOTE | 2017-12-10 09:35 | Anethesia Preoperative Eval ---
Anesthesia Pre-op PMH/ROS General Date of Evaluation: Dec 10, 2017 Time of Evaluation: 08:45 Anesthesiologist: Mona ASA Score: ASA 3 Mallampati Score Class I : Soft palate, uvula, fauces, pillars visible Class II: Soft palate, uvula, fauces visible Class III: Soft palate, base of uvula visible Class IV: Only hard plate visible Mallampati Classification: Class III Surgeon: Tomeka Diagnosis: Anemia Surgical Procedure: EGD/Colon Anesthesia History: none Social History: alcohol use Family History: no anesthesia problems Allergies: Coded Allergies: No Known Allergies (Unverified , 12/08/17) Past Medical History Cardiovascular: Denies: HTN, CAD, MT, valve dz, arrhythmia, other Pulmonary: Denies: asthma, COPD, THAD, other Gastrointestinal/Genitourinary: Reports: other - hx of bloody stools, UTI Neurologic/Psychiatric: Denies: dementia, CVA, depression/anxiety, TIA, other Endocrine: Reports: other - Liver Encephalopathy HEENT: Denies: cataract (L), cataract (R), glaucoma, TOGIAK (L), TOGIAK (R), other Hematology/Immune: Reports: anemia Musculoskeletal/Integumentary: Denies: OA, RA, DJD, DDD, edema, other Anesthesia Pre-op Phys. Exam Physician Exam Last Vital Signs Date Time Temp Pulse Resp B/P (MAP) Pulse Ox O2 Delivery O2 Flow Rate FiO2 12/10/17 07:46 97.7 99 18 133/85 99 Room Air 97.7 Constitutional: NAD Neurologic: CN 2-12 intact Cardiovascular: RRR Respiratory: CTA Gastrointestinal: S/NT/ND Airway Exam Mallampati Score: Class III MO: full ROM: full Teeth: intact Dentures: no upper, no lower Anesthesia Pre-op A/P Labs Hematology Test 12/10/17 07:35 White Blood Count 8.1 K/UL (4.8-10.8) Red Blood Count 4.03 M/UL (4.70-6.10) L Hemoglobin 10.2 G/DL (14.2-18.0) #L Hematocrit 30.9 % (42.0-52.0) #L Mean Corpuscular Volume 77 FL (80-99) L Mean Corpuscular Hemoglobin 25.3 PG (27.0-31.0) L Mean Corpuscular Hemoglobin Concent 33.1 G/DL (32.0-36.0) Red Cell Distribution Width 18.1 % (11.6-14.8) H Platelet Count 92 K/UL (150-450) L Mean Platelet Volume 7.4 FL (6.5-10.1) Neutrophils (%) (Auto) % (45.0-75.0) Lymphocytes (%) (Auto) % (20.0-45.0) Monocytes (%) (Auto) % (1.0-10.0) Eosinophils (%) (Auto) % (0.0-3.0) Basophils (%) (Auto) % (0.0-2.0) Differential Total Cells Counted 100 Neutrophils % (Manual) 70 % (45-75) Lymphocytes % (Manual) 18 % (20-45) L Monocytes % (Manual) 10 % (1-10) Eosinophils % (Manual) 2 % (0-3) Basophils % (Manual) 0 % (0-2) Band Neutrophils 0 % (0-8) Platelet Estimate Decreased L Platelet Morphology Normal Polychromasia 1+ Hypochromasia 1+ Anisocytosis 1+ Coagulation Test 12/10/17 07:35 Prothrombin Time 16.6 SEC (9.30-11.50) H Prothromb Time International Ratio 1.6 (0.9-1.1) H Activated Partial Thromboplast Time 34 SEC (23-33) H Chemistry Test 12/10/17 07:35 Sodium Level 140 MMOL/L (136-145) Potassium Level 2.8 MMOL/L (3.5-5.1) L Chloride Level 106 MMOL/L (98-107) Carbon Dioxide Level 26 MMOL/L (21-32) Anion Gap 7 mmol/L (5-15) Blood Urea Nitrogen 4 mg/dL (7-18) L Creatinine 1.0 MG/DL (0.55-1.30) Estimat Glomerular Filtration Rate > 60 mL/min (>60) Glucose Level 126 MG/DL (74-106) H Calcium Level 8.9 MG/DL (8.5-10.1) Ammonia 47 umol/L (11-32) H Lipase 864 U/L (73-393) H Studies Pre-op Studies: EKG - NST 127 bpm Risk Assessment & Plan Assessment: A&Ox3, consent obtained via phone from patients brother He Javier Plan: MAC Status Change Before Surgery: No Pre-Antibiotics Given Within 1 Hr of Incision: No Mary Dunn CRNA Dec 10, 2017 09:35
--- NOTE | 2017-12-10 09:36 | Immediate Post-Op Evaluation ---
Immediate Post-Op Evalulation Immediate Post-Op Evalulation Procedure: EGD with banding & biopsy, colonoscopy Date of Evaluation: Dec 10, 2017 Time of Evaluation: 09:45 IV Fluids: NSS 250 ml Blood Products: 0 Estimated Blood Loss: 0 Urinary Output: 0 Blood Pressure Systolic: 139 Blood Pressure Diastolic: 100 Pulse Rate: 92 Respiratory Rate: 18 O2 Sat by Pulse Oximetry: 100 Temperature (Fahrenheit): 97.2 Pain Score (1-10): 0 Nausea: No Vomiting: No Complications none noted Patient Status: awake, reacts Hydration Status: adequate Given Within 1 Hr of Incision: No - none per surgeon Mary Dunn CRNA Dec 10, 2017 09:36
--- NOTE | 2017-12-10 09:37 | Endoscopy Procedure Note ---
Endoscopy Procedure Note General Indication for Procedure: gib Procedures Performed: EGD, colonoscopy Operative Findings/Diagnosis: EV s/p banding x3, one colon polyp Specimen: yes Pt Tolerated Procedure Well: Yes Estimated Blood Loss: none Anesthesia Anesthesiologist: angelica Anesthesia: MAC Inserted Devices Implant(s) used?: No Quality Quality of Bowel Preparation: Fair Did scope reach the cecum?: Yes Was there any complications?: No GI Core Measures 50 yrs or older w/o bx or poly: Not Applicable 10yrs. F/U not recommended: Not Applicable ZACK LEBRON Dec 10, 2017 09:37
--- NOTE | 2017-12-10 09:37 | 48 Hour Post Anesthesia Eval ---
Post Anesthesia Evaluation Procedure: EGD with banding & biopsy, colonoscopy Date of Evaluation: Dec 10, 2017 Time of Evaluation: 10:03 Blood Pressure Systolic: 139 0: 97 Pulse Rate: 90 Respiratory Rate: 20 Temperature (Fahrenheit): 97.2 - 2 O2 Sat by Pulse Oximetry: 100 Airway: patent Nausea: No Vomiting: No Pain Intensity: 0 Hydration Status: adequate Mental Status/LOC: patient returned to baseline Post-Anesthesia Complications: none noted Follow-up care needed: patient intructions given Mary Dunn CRNA Dec 10, 2017 09:37
[2017-12-10] MEDS ORDERED: IMIPENEM/CILASTATIN IV 500 MG in NS 110 ML IV SCH (10:00)
[2017-12-10] MEDS: Lactulose 20gm/30ml UDC ORAL SCH ×3 (10:40→17:18)
[2017-12-10] MEDS: Multivitamin w/Minerals tab ORAL SCH (10:40)
[2017-12-10] MEDS: Docusate 100mg cap ORAL SCH ×2 (10:41→21:00)
[2017-12-10] MEDS: Thiamine 100mg tab ORAL SCH (10:41)
[2017-12-10] MEDS: Pantoprazole Inj IV SCH (10:44)
--- NOTE | 2017-12-10 10:58 | Infectious Diseases Prog Note ---
Assessment/Plan Assessment/Plan Full consult dictated: A) 1) esbl e.coli uti, ? sepsis, leukocytosis 2) s/p egd 3) ams 4) allergies - negative P) 1) meropenem 2) continue per Dr. Hernandez and consults 3) thank you Subjective Allergies: Coded Allergies: No Known Allergies (Unverified , 12/08/17) Objective Vital Signs Last 24 Hour Vital Signs Date Time Temp Pulse Resp B/P (MAP) Pulse Ox O2 Delivery O2 Flow Rate FiO2 12/10/17 10:42 207.0 90 20 100 12/10/17 10:20 97.7 97 21 138/99 100 Nasal Cannula 3.0 97.7 12/10/17 10:05 94 18 142/100 100 Nasal Cannula 3.0 12/10/17 10:00 99 17 149/101 100 Nasal Cannula 3.0 12/10/17 09:50 95 20 145/99 100 Nasal Cannula 3.0 12/10/17 09:45 97.2 92 18 139/100 100 Nasal Cannula 3.0 97.2 12/10/17 07:46 97.7 99 18 133/85 99 Room Air 97.7 12/10/17 04:00 98.2 103 18 134/82 100 Room Air 98.2 12/10/17 04:00 92 12/10/17 00:00 96 12/10/17 00:00 98.1 95 20 127/92 99 Room Air 98.1 12/09/17 20:00 92 12/09/17 20:00 97.7 93 20 129/87 95 Room Air 97.7 12/09/17 16:00 89 12/09/17 16:00 97.3 89 18 130/87 96 Room Air 97.3 12/09/17 12:00 97.0 94 20 137/86 96 Room Air 12/09/17 12:00 89 Height (Feet): 5 Height (Inches): 5.00 Weight (Pounds): 143 Microbiology Date/Time Source Procedure Growth Status 12/08/17 02:15 Urine,Clean Catch Urine Culture - Final Escherichia Coli - Esbl Complete 12/08/17 12:30 Abdominal Fluid Gram Stain Pending Resulted 12/08/17 12:30 Abdominal Fluid Body Fluid Culture - Preliminary NO GROWTH Resulted Laboratory Tests Test 12/10/17 07:35 12/10/17 09:35 White Blood Count 8.1 K/UL (4.8-10.8) Red Blood Count 4.03 M/UL (4.70-6.10) L Hemoglobin 10.2 G/DL (14.2-18.0) #L Hematocrit 30.9 % (42.0-52.0) #L Mean Corpuscular Volume 77 FL (80-99) L Mean Corpuscular Hemoglobin 25.3 PG (27.0-31.0) L Mean Corpuscular Hemoglobin Concent 33.1 G/DL (32.0-36.0) Red Cell Distribution Width 18.1 % (11.6-14.8) H Platelet Count 92 K/UL (150-450) L Mean Platelet Volume 7.4 FL (6.5-10.1) Neutrophils (%) (Auto) % (45.0-75.0) Lymphocytes (%) (Auto) % (20.0-45.0) Monocytes (%) (Auto) % (1.0-10.0) Eosinophils (%) (Auto) % (0.0-3.0) Basophils (%) (Auto) % (0.0-2.0) Differential Total Cells Counted 100 Neutrophils % (Manual) 70 % (45-75) Lymphocytes % (Manual) 18 % (20-45) L Monocytes % (Manual) 10 % (1-10) Eosinophils % (Manual) 2 % (0-3) Basophils % (Manual) 0 % (0-2) Band Neutrophils 0 % (0-8) Platelet Estimate Decreased L Platelet Morphology Normal Polychromasia 1+ Hypochromasia 1+ Anisocytosis 1+ Prothrombin Time 16.6 SEC (9.30-11.50) H Prothromb Time International Ratio 1.6 (0.9-1.1) H Activated Partial Thromboplast Time 34 SEC (23-33) H Sodium Level 140 MMOL/L (136-145) Potassium Level 2.8 MMOL/L (3.5-5.1) L Chloride Level 106 MMOL/L (98-107) Carbon Dioxide Level 26 MMOL/L (21-32) Anion Gap 7 mmol/L (5-15) Blood Urea Nitrogen 4 mg/dL (7-18) L Creatinine 1.0 MG/DL (0.55-1.30) Estimat Glomerular Filtration Rate > 60 mL/min (>60) Glucose Level 126 MG/DL (74-106) H Calcium Level 8.9 MG/DL (8.5-10.1) Ammonia 47 umol/L (11-32) H Lipase 864 U/L (73-393) H Magnesium Level 1.8 MG/DL (1.8-2.4) Current Medications Medications (Trade) Dose Ordered Sig/Jl Route PRN Reason Start Time Stop Time Status Last Admin Dose Admin Bisacodyl (Dulcolax) 10 mg DAILYPRN PRN RECTAL Constipation 12/08/17 05:45 01/07/18 05:44 Dextrose (Dextrose 50%) STAT PRN IV Hypoglycemia 12/08/17 05:45 01/07/18 05:44 Docusate Sodium (Colace) 100 mg EVERY 12 HOURS ORAL 12/08/17 09:00 01/07/18 08:59 12/10/17 10:41 Folic Acid (Folate) 1 mg DAILY ORAL 12/08/17 18:30 01/07/18 18:29 12/10/17 10:39 Lactulose (Cephulac) 30 gm THREE TIMES A DAY ORAL 12/08/17 09:00 01/07/18 08:59 12/10/17 10:40 Lorazepam (Ativan) 1 mg Q4H PRN ORAL For Anxiety 12/08/17 05:45 12/15/17 05:44 Meropenem 500 mg/ Sodium Chloride 55 ml @ 110 mls/hr Q8H IVPB 12/10/17 12:00 12/15/17 23:59 Multivitamins Therapeutic (Therapeutic Multivitamin) 1 ea DAILY ORAL 12/08/17 18:30 01/07/18 18:29 12/10/17 10:40 Ondansetron HCl (Zofran) 4 mg Q6H PRN IVP Nausea & Vomiting 12/08/17 05:45 01/07/18 05:44 Pantoprazole (Protonix) 40 mg DAILY IV 12/08/17 09:00 01/07/18 08:59 12/10/17 10:44 Polyethylene Glycol (Miralax) 17 gm DAILYPRN PRN ORAL Constipation 12/08/17 05:45 01/07/18 05:44 Potassium Chloride 100 ml @ 50 mls/hr ONCE ONCE IVPB 12/10/17 11:00 12/10/17 12:59 Rifaximin (Xifaxan) 550 mg EVERY 12 HOURS ORAL 12/08/17 09:00 12/15/17 08:59 12/10/17 10:43 Thiamine HCl (Vitamin B1) 100 mg DAILY ORAL 12/08/17 18:30 01/07/18 18:29 12/10/17 10:41 JASS MCCRARY Dec 10, 2017 10:58
--- NOTE | 2017-12-10 11:45 | Procedure Note ---
DATE OF PROCEDURE: 12/10/2017 SURGEON: Solomon Eckert M.D. QA LEAD: Mona ANDERSEN. REFERRING PHYSICIAN: Heather Gray M.D. ANESTHESIA: Per Mona ANDERSEN. PROCEDURE: Upper endoscopy with banding and biopsy and colonoscopy with snare polypectomy. INSTRUMENT: Olympus adult flexible upper endoscope and colonoscope. INDICATION: Gastrointestinal bleeding. The procedure, risks, benefits, and possible consequences, including hemorrhage, aspiration, perforation and infection, and alternative treatments, were explained to the patient/legal guardian by Dr. Solomon Eckert and the patient/legal guardian understood and accepted these risks. DESCRIPTION OF PROCEDURE: After informed consent was obtained and the patient was adequately sedated, Olympus upper endoscope was advanced from mouth into the second portion of the duodenum and retroflexion was performed in the stomach. The patient had three columns of grade 3/grade 4 distal esophageal varices and there was no evidence of any gastric varices. In the stomach, there was evidence of portal hypertensive gastropathy. Random biopsy from antrum was obtained to rule out H. pylori infection. Then, we started our banding procedure. We placed three bands in the distal esophagus successfully without any complication. At this time, the upper endoscope was retrieved. The patient was turned over for colonoscopy. First, rectal exam was performed which showed positive for external and internal hemorrhoids. Then, the scope was advanced from the rectum into the cecum documented by appendiceal orifice, ileocecal valve, and right quadrant palpation. Quality of prep was fair. The patient had a sessile polyp in the cecum which roughly measured about 6-7 mm, removed with snare polypectomy technique. The rest of the colonic examination grossly was within normal limits. Retroflexion of rectum showed evidence of internal hemorrhoids. The patient tolerated the procedure well without any complication. SUMMARY OF FINDINGS: 1. Esophageal varices, status post banding. 2. Portal hypertensive gastropathy. 3. Internal and external hemorrhoid. 4. One colonic polyp removed, see above for details. RECOMMENDATIONS: Resume diet. The patient will need repeat banding in 4-6 weeks as an outpatient for repeat banding. I want to thank Dr. Gray for this kind referral. Solomon Florentino Eckert DR: Kapil JOB#: [id number] CC: Heather Gray M.D.; Fax#: [phone]
[2017-12-10] MEDS ORDERED: Meropenem 500mg in NS 55ml IVPB SCH (12:00)
--- NOTE | 2017-12-10 16:41 | Cardiac Electrophysiology PN ---
Assessment/Plan Assessment/Plan 1. Initial troponin leak. The second troponin is negative. The patient does not have any chest pain, not a candidate for stress test. 2. The patient has advanced cirrhosis of the liver and hyperbilirubinemia. 3. Sinus tachycardia with no evidence of atrial fibrillation or supraventricular tachycardia. His echocardiogram showed ejection fraction of 60% to 65% with diastolic dysfunction. 4. Alcoholic cirrhosis and hepatic encephalopathy. 5. Anemia. 6. Bloody stool with melena. Evaluation by Dr. Eckert.S/P EGD and colonoscopy today 7. Ascites, status post paracentesis of 600 mL fluid. Continue the lactulose and Xifaxan. Subjective Subjective Has been in sinus tach.Had EGD and colonoscopy today with esophageal varices. Had one colon poly removed. Positive ESBL in urine Objective Last 24 Hour Vital Signs Date Time Temp Pulse Resp B/P (MAP) Pulse Ox O2 Delivery O2 Flow Rate FiO2 12/10/17 16:00 98.1 100 20 137/86 100 Nasal Cannula 98.1 12/10/17 15:59 93 12/10/17 12:00 92 12/10/17 12:00 97.3 98 20 139/94 99 Nasal Cannula 3.0 97.3 12/10/17 10:42 207.0 90 20 100 12/10/17 10:20 97.7 97 21 138/99 100 Nasal Cannula 3.0 97.7 12/10/17 10:05 94 18 142/100 100 Nasal Cannula 3.0 12/10/17 10:00 99 17 149/101 100 Nasal Cannula 3.0 12/10/17 09:50 95 20 145/99 100 Nasal Cannula 3.0 12/10/17 09:45 97.2 92 18 139/100 100 Nasal Cannula 3.0 97.2 12/10/17 08:00 92 12/10/17 07:46 97.7 99 18 133/85 99 Room Air 97.7 12/10/17 04:00 98.2 103 18 134/82 100 Room Air 98.2 12/10/17 04:00 92 12/10/17 00:00 96 12/10/17 00:00 98.1 95 20 127/92 99 Room Air 98.1 12/09/17 20:00 92 12/09/17 20:00 97.7 93 20 129/87 95 Room Air 97.7 Intake and Output 12/09/17 12/10/17 19:00 07:00 Intake Total 240 ml 1905 ml Output Total 150 ml Balance 90 ml 1905 ml Intake Oral 240 ml 1600 ml IV Total 55 ml Blood Product 250 ml Output Urine Total 150 ml # Voids 1 # Bowel Movements 2 4 Laboratory Tests Test 12/10/17 07:35 12/10/17 09:35 White Blood Count 8.1 K/UL (4.8-10.8) Red Blood Count 4.03 M/UL (4.70-6.10) L Hemoglobin 10.2 G/DL (14.2-18.0) #L Hematocrit 30.9 % (42.0-52.0) #L Mean Corpuscular Volume 77 FL (80-99) L Mean Corpuscular Hemoglobin 25.3 PG (27.0-31.0) L Mean Corpuscular Hemoglobin Concent 33.1 G/DL (32.0-36.0) Red Cell Distribution Width 18.1 % (11.6-14.8) H Platelet Count 92 K/UL (150-450) L Mean Platelet Volume 7.4 FL (6.5-10.1) Neutrophils (%) (Auto) % (45.0-75.0) Lymphocytes (%) (Auto) % (20.0-45.0) Monocytes (%) (Auto) % (1.0-10.0) Eosinophils (%) (Auto) % (0.0-3.0) Basophils (%) (Auto) % (0.0-2.0) Differential Total Cells Counted 100 Neutrophils % (Manual) 70 % (45-75) Lymphocytes % (Manual) 18 % (20-45) L Monocytes % (Manual) 10 % (1-10) Eosinophils % (Manual) 2 % (0-3) Basophils % (Manual) 0 % (0-2) Band Neutrophils 0 % (0-8) Platelet Estimate Decreased L Platelet Morphology Normal Polychromasia 1+ Hypochromasia 1+ Anisocytosis 1+ Prothrombin Time 16.6 SEC (9.30-11.50) H Prothromb Time International Ratio 1.6 (0.9-1.1) H Activated Partial Thromboplast Time 34 SEC (23-33) H Sodium Level 140 MMOL/L (136-145) Potassium Level 2.8 MMOL/L (3.5-5.1) L Chloride Level 106 MMOL/L (98-107) Carbon Dioxide Level 26 MMOL/L (21-32) Anion Gap 7 mmol/L (5-15) Blood Urea Nitrogen 4 mg/dL (7-18) L Creatinine 1.0 MG/DL (0.55-1.30) Estimat Glomerular Filtration Rate > 60 mL/min (>60) Glucose Level 126 MG/DL (74-106) H Calcium Level 8.9 MG/DL (8.5-10.1) Ammonia 47 umol/L (11-32) H Lipase 864 U/L (73-393) H Magnesium Level 1.8 MG/DL (1.8-2.4) Microbiology Date/Time Source Procedure Growth Status 12/08/17 02:15 Urine,Clean Catch Urine Culture - Final Escherichia Coli - Esbl Complete 12/08/17 12:30 Abdominal Fluid Gram Stain - Final Resulted 12/08/17 12:30 Abdominal Fluid Body Fluid Culture - Preliminary NO GROWTH Resulted Objective HEAD AND NECK: Shows no JVD. LUNGS: Coarse rhonchi. CARDIOVASCULAR: Shows regular S1 and S2 with no gallop or murmur. ABDOMEN: Soft with ascites. EXTREMITIES: No pitting edema. YAW SCHUSTER Dec 10, 2017 16:41
[2017-12-10] MEDS ORDERED: LORazepam 1mg tab ORAL PRN (18:30)
[2017-12-10] MEDS ORDERED: Miralax 17gm pkt ORAL PRN (18:30)
[2017-12-10] MEDS ORDERED: Iron Sucrose 100 MG in NS 55 ML IV SCH (21:00)
[2017-12-10] MEDS: Meropenem 500 MG in NS 55 ML IVPB SCH (21:31)
--- NOTE | 2017-12-11 00:08 | General Progress Note ---
Assessment/Plan Problem List: (1) Acute hepatic encephalopathy ICD Codes: K72.00 - Acute and subacute hepatic failure without coma SNOMED: 97458612 (2) Alcoholic cirrhosis ICD Codes: K70.30 - Alcoholic cirrhosis of liver without ascites SNOMED: 780068980 (3) Acute blood loss anemia ICD Codes: D62 - Acute posthemorrhagic anemia SNOMED: 754956746 (4) Alcohol abuse with physiological dependence ICD Codes: F10.20 - Alcohol dependence, uncomplicated SNOMED: 36643631, 79618913 (5) Coagulopathy ICD Codes: D68.9 - Coagulation defect, unspecified SNOMED: 45673532 (6) Anemia of chronic disease ICD Codes: D63.8 - Anemia in other chronic diseases classified elsewhere SNOMED: 154390825 (7) Sepsis ICD Codes: A41.9 - Sepsis, unspecified organism SNOMED: 65021808 (8) UTI (urinary tract infection) ICD Codes: N39.0 - Urinary tract infection, site not specified SNOMED: 48340790 Qualifiers: Qualified Codes: N30.01 - Acute cystitis with hematuria Status: stable Assessment/Plan GI consulted Lactulose + Rifaximin Monitor mental status closely s/p EGD and colo on 12/10/17 which showed esophageal varices s/p banding x 3, internal and external hemorrhoids, 1 colon polyp s/p removal CLD, ADAT Bowel prep per GI s/p 4U pRBCs thus far Trend CBC s/p paracentesis on 12/10/17 w/ 600mL removed. No e/o SBP ID consulted Meropenem for UTI (12/10-) F/u urine culture--ESBL E. Coli Cardiology consulted given elevated troponin Trend trop/EKG--downtrending Check TTE--preserved EF SW consult for substance abuse resources Pain control, bowel regimen Supportive care FULL CODE D/w pt, RN, SW/CM, GI regarding mgmt and dispo. D/w ID re abx, D/w GI re results of scope, diet Subjective Date patient seen: Dec 10, 2017 Time patient seen: 14:00 ROS Limited/Unobtainable: No Constitutional: Reports: weakness HEENT: Reports: no symptoms Cardiovascular: Reports: no symptoms Respiratory: Reports: no symptoms Gastrointestinal/Abdominal: Reports: no symptoms Genitourinary: Reports: no symptoms Neurologic/Psychiatric: Reports: no symptoms Endocrine: Reports: no symptoms Hematologic/Lymphatic: Reports: no symptoms Allergies: Coded Allergies: No Known Allergies (Unverified , 12/08/17) All Systems: reviewed and negative except above Subjective No acute o/n events s/p paracentesis w/ 600mL removed. Fluid studies neg for SBP Hgb 10.2 s/p 2U pRBC yesterday s/p EGD and colo today which showed esopahgeal varices s/p banding x3, internal and external hemorrhoids, 1 colon polyp s/p removal Pt more awake, alert. Denies pain, f/c, chest pain, SOB, abd pain. No further bloody BMs. Tolerating CLD Objective Last 24 Hour Vital Signs Date Time Temp Pulse Resp B/P (MAP) Pulse Ox O2 Delivery O2 Flow Rate FiO2 12/10/17 20:00 98.8 104 18 124/85 95 98.8 12/10/17 16:00 98.1 100 20 137/86 100 Nasal Cannula 98.1 12/10/17 15:59 93 12/10/17 12:00 92 12/10/17 12:00 97.3 98 20 139/94 99 Nasal Cannula 3.0 97.3 12/10/17 10:42 207.0 90 20 100 12/10/17 10:20 97.7 97 21 138/99 100 Nasal Cannula 3.0 97.7 12/10/17 10:05 94 18 142/100 100 Nasal Cannula 3.0 12/10/17 10:00 99 17 149/101 100 Nasal Cannula 3.0 12/10/17 09:50 95 20 145/99 100 Nasal Cannula 3.0 12/10/17 09:45 97.2 92 18 139/100 100 Nasal Cannula 3.0 97.2 12/10/17 08:00 92 12/10/17 07:46 97.7 99 18 133/85 99 Room Air 97.7 12/10/17 04:00 98.2 103 18 134/82 100 Room Air 98.2 12/10/17 04:00 92 Intake and Output 12/10/17 12/11/17 19:00 07:00 Intake Total 580 ml Balance 580 ml Intake Oral 270 ml IV Total 310 ml # Voids 2 # Bowel Movements 2 Laboratory Tests 12/10/17 07:35: White Blood Count 8.1, Red Blood Count 4.03L, Hemoglobin 10.2#L, Hematocrit 30.9 #L, Mean Corpuscular Volume 77L, Mean Corpuscular Hemoglobin 25.3L, Mean Corpuscular Hemoglobin Concent 33.1, Red Cell Distribution Width 18.1H, Platelet Count 92L, Mean Platelet Volume 7.4, Neutrophils (%) (Auto) , Lymphocytes (%) (Auto) , Monocytes (%) (Auto) , Eosinophils (%) (Auto) , Basophils (%) (Auto) , Differential Total Cells Counted 100, Neutrophils % ( Manual) 70, Lymphocytes % (Manual) 18L, Monocytes % (Manual) 10, Eosinophils % ( Manual) 2, Basophils % (Manual) 0, Band Neutrophils 0, Platelet Estimate DecreasedL, Platelet Morphology Normal, Polychromasia 1+, Hypochromasia 1+, Anisocytosis 1+, Prothrombin Time 16.6H, Prothromb Time International Ratio 1.6H , Activated Partial Thromboplast Time 34H, Sodium Level 140, Potassium Level 2.8L, Chloride Level 106, Carbon Dioxide Level 26, Anion Gap 7, Blood Urea Nitrogen 4L, Creatinine 1.0, Estimat Glomerular Filtration Rate > 60, Glucose Level 126H, Calcium Level 8.9, Ammonia 47H, Lipase 864H 12/10/17 09:35: Magnesium Level 1.8 Height (Feet): 5 Height (Inches): 5.00 Weight (Pounds): 143 Objective General: alert, cooperative, no distress, appears stated age Head: normocephalic, without obvious abnormality, atraumatic Eyes: conjunctivae/corneas clear. PERRL, EOM's intact Throat: lips, mucosa, and tongue normal. MMM Neck: supple, symmetrical, trachea midline, and no JVD Lungs: clear to auscultation bilaterally Heart: regular rate and rhythm, S1, S2 normal, no murmur, click, rub or gallop Abdomen: soft, non-tender, mildly distended, bowel sounds normal; Extremities: extremities normal, atraumatic, no cyanosis or edema Pulses: 2+ and symmetric Skin: skin color, texture, turgor normal; no rashes or lesions Neurologic: grossly normal, no focal deficits Mary Monae M.D. Dec 11, 2017 00:08
[2017-12-11 04:24] VITALS: BP 133/91
[2017-12-11] MEDS: Meropenem 500 MG in NS 55 ML IVPB SCH ×3 (05:04→19:56)
[2017-12-11 07:22] LABS: HEMATOCRIT 28.1 % (42.0-52.0); HEMOGLOBIN 9.6 G/DL (14.2-18.0); MEAN CORPUSCULAR VOLUME 77 FL (80-99); PLATELET COUNT 89 K/UL (150-450); RED BLOOD COUNT 3.65 M/UL (4.70-6.10); RED CELL DISTRIBUTION WIDTH 18.5 % (11.6-14.8); WHITE BLOOD COUNT 9.9 K/UL (4.8-10.8)
[2017-12-11 07:26] LABS: ANION GAP 10 mmol/L (5-15); BLOOD UREA NITROGEN 8 mg/dL (7-18); CALCIUM 8.7 MG/DL (8.5-10.1); CARBON DIOXIDE 24 MMOL/L (21-32); CHLORIDE 103 MMOL/L (98-107); POTASSIUM 3.1 MMOL/L (3.5-5.1); SODIUM 137 MMOL/L (136-145)
[2017-12-11 08:00] VITALS: BP 137/87
[2017-12-11] MEDS: Thiamine 100mg tab ORAL SCH (08:55)
[2017-12-11] MEDS: Pantoprazole Inj IV SCH (08:55)
[2017-12-11] MEDS: Multivitamin w/Minerals tab ORAL SCH (08:55)
[2017-12-11] MEDS: Docusate 100mg cap ORAL SCH ×2 (08:57→20:46)
[2017-12-11] MEDS ORDERED: Lactulose 20gm/30ml UDC ORAL SCH (09:00)
--- NOTE | 2017-12-11 11:25 | GI Progress Note ---
Assessment/Plan Problems: (1) Bloody stool ICD Codes: K92.1 - Melena SNOMED: 268293356 (2) Hepatic encephalopathy ICD Codes: K72.90 - Hepatic failure, unspecified without coma SNOMED: 36548763 (3) Altered mental status ICD Codes: R41.82 - Altered mental status, unspecified SNOMED: 550631656 Qualifiers: Qualified Codes: R41.0 - Disorientation, unspecified (4) Anemia ICD Codes: D64.9 - Anemia, unspecified SNOMED: 924712849 Qualifiers: Qualified Codes: D64.9 - Anemia, unspecified Status: stable, progressing Status Narrative Discussed with Dr. Eckert. Assessment/Plan hep panel negative elevated lipase, ammonia levels iron overload abdominal U/S reviewed >> Hepatocellular disease. No ductal dilation. s/p paracentesis yielding 600 cc fluid r/o SBP SUMMARY OF FINDINGS: 1. Esophageal varices, status post banding x 3. 2. Portal hypertensive gastropathy. 3. Internal and external hemorrhoid. 4. One colonic polyp removed. RECOMMENDATIONS: resume diet The patient will need repeat banding in 4-6 weeks as an outpatient for repeat banding. cont Lactulose + Xifaxan monitor H&H, prn transfusions bowel regime ppi trend LFTs, ammonia, lipase fu labs Subjective Subjective feels better, more alert Objective Last 24 Hour Vital Signs Date Time Temp Pulse Resp B/P (MAP) Pulse Ox O2 Delivery O2 Flow Rate FiO2 12/11/17 08:00 98.4 107 20 137/87 96 98.4 12/11/17 04:24 98.3 114 20 133/91 97 98.3 12/10/17 23:58 98.8 100 17 118/75 94 98.8 12/10/17 20:00 98.8 104 18 124/85 95 98.8 12/10/17 16:00 98.1 100 20 137/86 100 Nasal Cannula 98.1 12/10/17 15:59 93 12/10/17 12:00 92 12/10/17 12:00 97.3 98 20 139/94 99 Nasal Cannula 3.0 97.3 Intake and Output 12/10/17 12/11/17 19:00 07:00 Intake Total 580 ml 590 ml Balance 580 ml 590 ml Intake Oral 270 ml 480 ml IV Total 310 ml 110 ml # Voids 2 2 # Bowel Movements 2 1 Laboratory Tests Test 12/11/17 05:15 White Blood Count 9.9 K/UL (4.8-10.8) Red Blood Count 3.65 M/UL (4.70-6.10) L Hemoglobin 9.6 G/DL (14.2-18.0) L Hematocrit 28.1 % (42.0-52.0) L Mean Corpuscular Volume 77 FL (80-99) L Mean Corpuscular Hemoglobin 26.2 PG (27.0-31.0) L Mean Corpuscular Hemoglobin Concent 34.0 G/DL (32.0-36.0) Red Cell Distribution Width 18.5 % (11.6-14.8) H Platelet Count 89 K/UL (150-450) L Mean Platelet Volume 7.2 FL (6.5-10.1) Neutrophils (%) (Auto) % (45.0-75.0) Lymphocytes (%) (Auto) % (20.0-45.0) Monocytes (%) (Auto) % (1.0-10.0) Eosinophils (%) (Auto) % (0.0-3.0) Basophils (%) (Auto) % (0.0-2.0) Differential Total Cells Counted 100 Neutrophils % (Manual) 54 % (45-75) Lymphocytes % (Manual) 24 % (20-45) Monocytes % (Manual) 15 % (1-10) H Eosinophils % (Manual) 2 % (0-3) Basophils % (Manual) 5 % (0-2) H Band Neutrophils 0 % (0-8) Platelet Estimate Decreased L Platelet Morphology Normal Hypochromasia 2+ Anisocytosis 2+ Microcytosis 1+ Sodium Level 137 MMOL/L (136-145) Potassium Level 3.1 MMOL/L (3.5-5.1) L Chloride Level 103 MMOL/L (98-107) Carbon Dioxide Level 24 MMOL/L (21-32) Anion Gap 10 mmol/L (5-15) Blood Urea Nitrogen 8 mg/dL (7-18) Creatinine 1.0 MG/DL (0.55-1.30) Estimat Glomerular Filtration Rate > 60 mL/min (>60) Glucose Level 129 MG/DL (74-106) H Calcium Level 8.7 MG/DL (8.5-10.1) Height (Feet): 5 Height (Inches): 5.00 Weight (Pounds): 143 General Appearance: WD/WN, no apparent distress, alert Cardiovascular: normal rate Respiratory/Chest: normal breath sounds, no respiratory distress Abdominal Exam: normal bowel sounds, non tender, soft Extremities: normal range of motion, non-tender Estela Paredes N.P. Dec 11, 2017 11:25
[2017-12-11 11:50] VITALS: BP 126/85
[2017-12-11 15:54] VITALS: BP 115/83
--- NOTE | 2017-12-11 16:18 | Infectious Diseases Prog Note ---
Assessment/Plan Assessment/Plan Full consult dictated: A) 1) esbl e.coli uti, ? sepsis, leukocytosis 2) s/p egd 3) ams 4) allergies - negative P) 1) meropenem - day # 2 2) continue per Dr. Hernandez and consults 3) d/w Dr. Hernandez Subjective Constitutional: Denies: fever HEENT: Denies: congestion Respiratory: Denies: shortness of breath Cardiovascular: Denies: chest pain Gastrointestinal/Abdominal: Denies: nausea, vomiting, diarrhea Allergies: Coded Allergies: No Known Allergies (Unverified , 12/08/17) Objective Vital Signs Last 24 Hour Vital Signs Date Time Temp Pulse Resp B/P (MAP) Pulse Ox O2 Delivery O2 Flow Rate FiO2 12/11/17 15:54 97.9 104 19 115/83 96 97.9 12/11/17 11:50 98.1 104 19 126/85 95 98.1 12/11/17 08:00 98.4 107 20 137/87 96 98.4 12/11/17 04:24 98.3 114 20 133/91 97 98.3 12/10/17 23:58 98.8 100 17 118/75 94 98.8 12/10/17 20:00 98.8 104 18 124/85 95 98.8 Height (Feet): 5 Height (Inches): 5.00 Weight (Pounds): 143 HEENT: normocephalic, atraumatic, anicteric, mucous membranes moist Respiratory/Chest: lungs clear, normal breath sounds, no respiratory distress, no accessory muscle use Cardiovascular: normal peripheral pulses, normal rate, regular rhythm, no gallop/murmur Abdomen: normal bowel sounds, soft, non tender, no organomegaly, non distended Laboratory Tests Test 12/11/17 05:15 White Blood Count 9.9 K/UL (4.8-10.8) Red Blood Count 3.65 M/UL (4.70-6.10) L Hemoglobin 9.6 G/DL (14.2-18.0) L Hematocrit 28.1 % (42.0-52.0) L Mean Corpuscular Volume 77 FL (80-99) L Mean Corpuscular Hemoglobin 26.2 PG (27.0-31.0) L Mean Corpuscular Hemoglobin Concent 34.0 G/DL (32.0-36.0) Red Cell Distribution Width 18.5 % (11.6-14.8) H Platelet Count 89 K/UL (150-450) L Mean Platelet Volume 7.2 FL (6.5-10.1) Neutrophils (%) (Auto) % (45.0-75.0) Lymphocytes (%) (Auto) % (20.0-45.0) Monocytes (%) (Auto) % (1.0-10.0) Eosinophils (%) (Auto) % (0.0-3.0) Basophils (%) (Auto) % (0.0-2.0) Differential Total Cells Counted 100 Neutrophils % (Manual) 54 % (45-75) Lymphocytes % (Manual) 24 % (20-45) Monocytes % (Manual) 15 % (1-10) H Eosinophils % (Manual) 2 % (0-3) Basophils % (Manual) 5 % (0-2) H Band Neutrophils 0 % (0-8) Platelet Estimate Decreased L Platelet Morphology Normal Hypochromasia 2+ Anisocytosis 2+ Microcytosis 1+ Sodium Level 137 MMOL/L (136-145) Potassium Level 3.1 MMOL/L (3.5-5.1) L Chloride Level 103 MMOL/L (98-107) Carbon Dioxide Level 24 MMOL/L (21-32) Anion Gap 10 mmol/L (5-15) Blood Urea Nitrogen 8 mg/dL (7-18) Creatinine 1.0 MG/DL (0.55-1.30) Estimat Glomerular Filtration Rate > 60 mL/min (>60) Glucose Level 129 MG/DL (74-106) H Calcium Level 8.7 MG/DL (8.5-10.1) Current Medications Medications (Trade) Dose Ordered Sig/Jl Route PRN Reason Start Time Stop Time Status Last Admin Dose Admin Bisacodyl (Dulcolax) 10 mg DAILYPRN PRN RECTAL Constipation 12/10/17 18:30 01/09/18 18:29 Dextrose (Dextrose 50%) STAT PRN IV Hypoglycemia 12/10/17 18:30 01/09/18 18:29 Docusate Sodium (Colace) 100 mg EVERY 12 HOURS ORAL 12/10/17 21:00 01/07/18 08:59 Folic Acid (Folate) 1 mg DAILY ORAL 12/11/17 09:00 01/07/18 18:29 12/11/17 08:55 Iron Sucrose 100 mg/Sodium Chloride 60 ml @ 240 mls/hr BEDTIME IV 12/11/17 21:00 12/15/17 21:14 Lactulose (Cephulac) 30 gm BID ORAL 12/11/17 18:00 01/07/18 08:59 Lorazepam (Ativan) 1 mg Q4H PRN ORAL For Anxiety 12/10/17 18:30 12/15/17 18:29 Meropenem 500 mg/ Sodium Chloride 55 ml @ 110 mls/hr Q8H IVPB 12/10/17 20:00 12/15/17 23:59 12/11/17 11:35 Multivitamins Therapeutic (Therapeutic Multivitamin) 1 ea DAILY ORAL 12/11/17 09:00 01/07/18 18:29 12/11/17 08:55 Ondansetron HCl (Zofran) 4 mg Q6H PRN IVP Nausea & Vomiting 12/10/17 18:30 01/07/18 18:29 Pantoprazole (Protonix) 40 mg DAILY IV 12/11/17 09:00 01/07/18 08:59 12/11/17 08:55 Polyethylene Glycol (Miralax) 17 gm DAILYPRN PRN ORAL Constipation 12/10/17 18:30 01/09/18 18:29 Rifaximin (Xifaxan) 550 mg EVERY 12 HOURS ORAL 12/10/17 21:00 12/15/17 08:59 12/11/17 08:56 Thiamine HCl (Vitamin B1) 100 mg DAILY ORAL 12/11/17 09:00 01/07/18 18:29 12/11/17 08:55 JASS MCCRARY Dec 11, 2017 16:18
[2017-12-11] MEDS: Lactulose 20gm/30ml UDC ORAL SCH (17:13)
--- NOTE | 2017-12-11 18:25 | Cardiac Electrophysiology PN ---
Assessment/Plan Assessment/Plan 1. Initial troponin leak. The second troponin is negative. The patient does not have any chest pain, not a candidate for stress test. 2. The patient has advanced cirrhosis of the liver and hyperbilirubinemia. 3. Sinus tachycardia with no evidence of atrial fibrillation or supraventricular tachycardia. His echocardiogram showed ejection fraction of 60% to 65% with diastolic dysfunction. 4. Alcoholic cirrhosis and hepatic encephalopathy. 5. Anemia. 6. Bloody stool with melena. Evaluation by Dr. Eckert.S/P EGD and colonoscopy yesterday 7. Ascites, status post paracentesis of 600 mL fluid. On lactulose and Xifaxan. Subjective Subjective .Had EGD and colonoscopy yesterday with esophageal varices. Had one colon poly removed. Positive ESBL in urine Alert and oriented. Transferred to [facility] Objective Last 24 Hour Vital Signs Date Time Temp Pulse Resp B/P (MAP) Pulse Ox O2 Delivery O2 Flow Rate FiO2 12/11/17 15:54 97.9 104 19 115/83 96 97.9 12/11/17 11:50 98.1 104 19 126/85 95 98.1 12/11/17 08:00 98.4 107 20 137/87 96 98.4 12/11/17 04:24 98.3 114 20 133/91 97 98.3 12/10/17 23:58 98.8 100 17 118/75 94 98.8 12/10/17 20:00 98.8 104 18 124/85 95 98.8 Intake and Output 12/10/17 12/11/17 19:00 07:00 Intake Total 580 ml 590 ml Balance 580 ml 590 ml Intake Oral 270 ml 480 ml IV Total 310 ml 110 ml # Voids 2 2 # Bowel Movements 2 1 Laboratory Tests Test 12/11/17 05:15 White Blood Count 9.9 K/UL (4.8-10.8) Red Blood Count 3.65 M/UL (4.70-6.10) L Hemoglobin 9.6 G/DL (14.2-18.0) L Hematocrit 28.1 % (42.0-52.0) L Mean Corpuscular Volume 77 FL (80-99) L Mean Corpuscular Hemoglobin 26.2 PG (27.0-31.0) L Mean Corpuscular Hemoglobin Concent 34.0 G/DL (32.0-36.0) Red Cell Distribution Width 18.5 % (11.6-14.8) H Platelet Count 89 K/UL (150-450) L Mean Platelet Volume 7.2 FL (6.5-10.1) Neutrophils (%) (Auto) % (45.0-75.0) Lymphocytes (%) (Auto) % (20.0-45.0) Monocytes (%) (Auto) % (1.0-10.0) Eosinophils (%) (Auto) % (0.0-3.0) Basophils (%) (Auto) % (0.0-2.0) Differential Total Cells Counted 100 Neutrophils % (Manual) 54 % (45-75) Lymphocytes % (Manual) 24 % (20-45) Monocytes % (Manual) 15 % (1-10) H Eosinophils % (Manual) 2 % (0-3) Basophils % (Manual) 5 % (0-2) H Band Neutrophils 0 % (0-8) Platelet Estimate Decreased L Platelet Morphology Normal Hypochromasia 2+ Anisocytosis 2+ Microcytosis 1+ Sodium Level 137 MMOL/L (136-145) Potassium Level 3.1 MMOL/L (3.5-5.1) L Chloride Level 103 MMOL/L (98-107) Carbon Dioxide Level 24 MMOL/L (21-32) Anion Gap 10 mmol/L (5-15) Blood Urea Nitrogen 8 mg/dL (7-18) Creatinine 1.0 MG/DL (0.55-1.30) Estimat Glomerular Filtration Rate > 60 mL/min (>60) Glucose Level 129 MG/DL (74-106) H Calcium Level 8.7 MG/DL (8.5-10.1) Objective HEAD AND NECK: Shows no JVD. LUNGS: Coarse rhonchi. CARDIOVASCULAR: Shows regular S1 and S2 with no gallop or murmur. ABDOMEN: Soft with ascites. EXTREMITIES: No pitting edema. YAW SCHUSTER Dec 11, 2017 18:24
[2017-12-11 19:54] VITALS: BP 121/77
[2017-12-11] MEDS: Iron Sucrose 100 MG in NS 55 ML IV SCH (20:46)
--- NOTE | 2017-12-11 21:47 | Consultation ---
DATE OF CONSULTATION: 12/11/2017 INFECTIOUS DISEASE CONSULTATION CONSULTING PHYSICIAN: Staci Mcallister M.D. ATTENDING PHYSICIAN: Heather Gray M.D. REFERRING PHYSICIAN: Dr. Hernandez. REASON FOR CONSULTATION: ESBL E. coli urinary tract infection. CHIEF COMPLAINT: The patient's chief complaint coming in the hospital is altered mental status. HISTORY OF PRESENT ILLNESS: This is a 41-year-old male, who comes in to [facility], the patient was noted to have a history of alcohol abuse. He came in with altered mental status. The patient had a paracentesis that was not consistent with peritonitis. The patient had elevated white count, is possibly septic with altered mental status. The patient had workup showed ESBL E. coli urinary tract infection. Infectious Disease consultation requested for antibiotic management. The patient will be placed on meropenem starting yesterday. MAR was noted. Orders were noted. Notes were reviewed. Case was discussed with RN. Case was discussed with Dr. Hernandez. The patient is not a very good historian, but is responsive. REVIEW OF SYSTEMS: HEAD AND NECK: He has no obvious head pain or neck pain. He came in with altered mental status and lethargy. No seizure activity. No rashes. CARDIAC: No chest pain. GASTROINTESTINAL: No significant nausea, vomiting, or abdominal pain at this time. He has some abdominal distention when he came in. PULMONARY: No congestion or shortness of breath. SKIN: No rashes. EXTREMITIES: No extremity pain. NEUROLOGIC: No seizures. PAST MEDICAL HISTORY: The patient's past medical history includes history of alcohol dependency or ETOH dependency, history of cirrhosis. No diabetes or hypertension mentioned. History of encephalopathy, coagulopathy, and anemia. ALLERGIES: No known drug allergies. FAMILY HISTORY: Noncontributory. SOCIAL HISTORY: Positive for ETOH abuse. No smoking abuse or drug abuse mentioned. MEDICATIONS: The patient is currently on the following medications. Upon reviewing the MAR, he is on lactulose. He is on folic acid, multivitamins, pantoprazole, thiamine, docusate, rifaximin, meropenem, bisacodyl, dextrose, lorazepam, Zofran, and polyethylene. PHYSICAL EXAMINATION: VITAL SIGNS: Temperature is 97.9, pulse rate is 104, respiratory rate 19, blood pressure 115/83, and saturation 96%. GENERAL: The patient is alert, responsive, in no acute distress. HEAD AND NECK: Oral exam, no thrush. Eye exam, possible icterus. Neck is supple. No JVD. Normocephalic. HEART: Regular. No obvious gallop or murmur. ABDOMEN: Soft. Positive bowel sounds. Some distention. LUNGS: Clear bilaterally. No rhonchi or rales. SKIN: No rash. MUSCULOSKELETAL: No effusion. Legs are without cellulitis. PERIPHERAL VASCULAR: No cyanosis. GENITOURINARY: No Holliday. LINES: Line sites without phlebitis. NEUROLOGIC: Generalized weakness and responsive. LABORATORY DATA: Laboratory data is as follows, creatinine is 0.9. Total bilirubin on admission was 8.8, direct 6.1. Creatinine now is 1.0. White count on admission was 12.0, hemoglobin 7.0, currently white count is 9.9, hemoglobin 9.6. Urinalysis was 2+ leukocyte esterase, 20 to 30 white blood cells, and many bacteria. Urine culture, greater than 100,00 ESBL E. coli. IMAGING STUDIES: Body fluid culture from the paracentesis was negative. Imaging studies showed the following. Chest x-ray showed no acute disease. Abdominal ultrasound showed no definite gallstones, gallbladder wall thickening. Paracentesis fluid analysis showed cells only 21 and 62% monocytes. It looks like the patient had colonoscopy and esophagogastroduodenoscopy, which showed esophageal varices. ASSESSMENT AND PLAN: 1. The patient has extended-spectrum beta-lactamases Escherichia coli urinary tract infection with possible sepsis, altered mental status, elevated white count, and elevated heart rate. The patient will be placed on meropenem day #2. Plan at least 10-day course of antibiotics. The patient will be on several days of intravenous meropenem. Limited choices for antibiotics including Macrobid. Continue meropenem intravenous for now. Case was discussed with Dr. Hernandez. 2. End-stage liver disease, cirrhosis, esophageal varices, anemia, possible gastrointestinal bleed. 3. ETOH dependency. 4. Anemia. 5. Altered mental status. 6. Coagulopathy. 7. Encephalopathy. 8. Sepsis with systemic inflammatory response syndrome criteria, leukocytosis, and elevated heart rate. 9. Allergies are negative. 10. MAR was noted. 11. Case was discussed with Dr. Hernandez. 12. Continue treatment per primary consultants. 13. Notes and records were noted. Orders were noted. Staci Mcallister M.D. DR: ROMÁN JOB#: [id number] CC:
--- NOTE | 2017-12-11 23:21 | General Progress Note ---
Assessment/Plan Problem List: (1) Acute hepatic encephalopathy ICD Codes: K72.00 - Acute and subacute hepatic failure without coma SNOMED: 76795254 (2) Alcoholic cirrhosis ICD Codes: K70.30 - Alcoholic cirrhosis of liver without ascites SNOMED: 920586765 (3) Acute blood loss anemia ICD Codes: D62 - Acute posthemorrhagic anemia SNOMED: 367327872 (4) Alcohol abuse with physiological dependence ICD Codes: F10.20 - Alcohol dependence, uncomplicated SNOMED: 65821983, 66046399 (5) Coagulopathy ICD Codes: D68.9 - Coagulation defect, unspecified SNOMED: 64367374 (6) Anemia of chronic disease ICD Codes: D63.8 - Anemia in other chronic diseases classified elsewhere SNOMED: 838015045 (7) Sepsis ICD Codes: A41.9 - Sepsis, unspecified organism SNOMED: 54119306 (8) UTI (urinary tract infection) ICD Codes: N39.0 - Urinary tract infection, site not specified SNOMED: 64440343 Qualifiers: Qualified Codes: N30.01 - Acute cystitis with hematuria (9) Acute upper and lower GI bleed (10) Esophgeal varices s/p banding x 3 (11) Internal and external hemorrhoids without complication ICD Codes: K64.4 - Residual hemorrhoidal skin tags; K64.8 - Other hemorrhoids SNOMED: 36183551, 37058947, 20335668 (12) Colonic polyp ICD Codes: K63.5 - Polyp of colon SNOMED: 10847398 Status: stable Assessment/Plan GI consulted Lactulose + Rifaximin Monitor mental status closely s/p EGD and colo on 12/10/17 which showed esophageal varices s/p banding x 3, internal and external hemorrhoids, 1 colon polyp s/p removal Regular diet as tolerated Bowel prep per GI s/p 4U pRBCs thus far Trend CBC s/p paracentesis on 12/10/17 w/ 600mL removed. No e/o SBP ID consulted Meropenem for UTI (12/10-) --> consider transition to macrobid on d/c F/u urine culture--ESBL E. Coli Cardiology consulted given elevated troponin Trend trop/EKG--downtrending Check TTE--preserved EF SW consult for substance abuse resources Pain control, bowel regimen Supportive care Possible d/c tomorrow if remains stable FULL CODE D/w pt, RN, SW/CM, GI regarding mgmt and dispo. D/w ID re abx, D/w GI re results of scope, diet Subjective Date patient seen: Dec 11, 2017 Time patient seen: 14:20 ROS Limited/Unobtainable: No Constitutional: Reports: weakness HEENT: Reports: no symptoms Cardiovascular: Reports: no symptoms Respiratory: Reports: no symptoms Gastrointestinal/Abdominal: Reports: no symptoms Genitourinary: Reports: no symptoms Neurologic/Psychiatric: Reports: no symptoms Endocrine: Reports: no symptoms Hematologic/Lymphatic: Reports: no symptoms Allergies: Coded Allergies: No Known Allergies (Unverified , 12/08/17) All Systems: reviewed and negative except above Subjective No acute o/n events s/p paracentesis w/ 600mL removed. Fluid studies neg for SBP Hgb slightly down to 9.7 but no active bleeding noted s/p EGD and colo yesterday which showed esopahgeal varices s/p banding x3, internal and external hemorrhoids, 1 colon polyp s/p removal Pt more awake, alert. Denies pain, f/c, chest pain, SOB, abd pain. No further bloody BMs. Tolerating regular idet Objective Last 24 Hour Vital Signs Date Time Temp Pulse Resp B/P (MAP) Pulse Ox O2 Delivery O2 Flow Rate FiO2 12/11/17 19:54 97.9 98 20 121/77 98 Room Air 97.9 12/11/17 15:54 97.9 104 19 115/83 96 97.9 12/11/17 11:50 98.1 104 19 126/85 95 98.1 12/11/17 08:00 98.4 107 20 137/87 96 98.4 12/11/17 04:24 98.3 114 20 133/91 97 98.3 12/10/17 23:58 98.8 100 17 118/75 94 98.8 Intake and Output 12/10/17 12/11/17 19:00 07:00 Intake Total 580 ml 590 ml Balance 580 ml 590 ml Intake Oral 270 ml 480 ml IV Total 310 ml 110 ml # Voids 2 2 # Bowel Movements 2 1 Laboratory Tests 12/11/17 05:15: White Blood Count 9.9, Red Blood Count 3.65L, Hemoglobin 9.6L, Hematocrit 28.1L , Mean Corpuscular Volume 77L, Mean Corpuscular Hemoglobin 26.2L, Mean Corpuscular Hemoglobin Concent 34.0, Red Cell Distribution Width 18.5H, Platelet Count 89L, Mean Platelet Volume 7.2, Neutrophils (%) (Auto) , Lymphocytes (%) (Auto) , Monocytes (%) (Auto) , Eosinophils (%) (Auto) , Basophils (%) (Auto) , Differential Total Cells Counted 100, Neutrophils % ( Manual) 54, Lymphocytes % (Manual) 24, Monocytes % (Manual) 15H, Eosinophils % ( Manual) 2, Basophils % (Manual) 5H, Band Neutrophils 0, Platelet Estimate DecreasedL, Platelet Morphology Normal, Hypochromasia 2+, Anisocytosis 2+, Microcytosis 1+, Sodium Level 137, Potassium Level 3.1L, Chloride Level 103, Carbon Dioxide Level 24, Anion Gap 10, Blood Urea Nitrogen 8, Creatinine 1.0, Estimat Glomerular Filtration Rate > 60, Glucose Level 129H, Calcium Level 8.7 Height (Feet): 5 Height (Inches): 5.00 Weight (Pounds): 143 Objective General: alert, cooperative, no distress, appears stated age Head: normocephalic, without obvious abnormality, atraumatic Eyes: conjunctivae/corneas clear. PERRL, EOM's intact Throat: lips, mucosa, and tongue normal. MMM Neck: supple, symmetrical, trachea midline, and no JVD Lungs: clear to auscultation bilaterally Heart: regular rate and rhythm, S1, S2 normal, no murmur, click, rub or gallop Abdomen: soft, non-tender, mildly distended, bowel sounds normal; Extremities: extremities normal, atraumatic, no cyanosis or edema Pulses: 2+ and symmetric Skin: skin color, texture, turgor normal; no rashes or lesions Neurologic: grossly normal, no focal deficits Mary Monae M.D. Dec 11, 2017 23:21
[2017-12-12] VITALS (7 sets, daily range): BP systolic 104–132; BP diastolic 61–82
[2017-12-12] MEDS: Meropenem 500 MG in NS 55 ML IVPB SCH ×3 (04:04→20:22)
[2017-12-12 06:33] LABS: HEMATOCRIT 25.6 % (42.0-52.0); HEMOGLOBIN 8.6 G/DL (14.2-18.0); MEAN CORPUSCULAR VOLUME 77 FL (80-99); PLATELET COUNT 81 K/UL (150-450); RED BLOOD COUNT 3.31 M/UL (4.70-6.10); RED CELL DISTRIBUTION WIDTH 19.2 % (11.6-14.8); WHITE BLOOD COUNT 11.5 K/UL (4.8-10.8)
[2017-12-12 07:14] LABS: ALANINE AMINOTRANSFERASE 51 U/L (12-78); ALBUMIN 1.7 G/DL (3.4-5.0); ALBUMIN/GLOBULIN RATIO 0.4 (1.0-2.7); ALKALINE PHOSPHATASE 133 U/L (46-116); ANION GAP 7 mmol/L (5-15); ASPARTATE AMINO TRANSFERASE 119 U/L (15-37); BILIRUBIN,TOTAL 8.9 MG/DL (0.2-1.0); BLOOD UREA NITROGEN 9 mg/dL (7-18); CALCIUM 8.5 MG/DL (8.5-10.1); CARBON DIOXIDE 25 MMOL/L (21-32); CHLORIDE 102 MMOL/L (98-107); CREATININE 0.9 MG/DL (0.55-1.30); POTASSIUM 3.9 MMOL/L (3.5-5.1); SODIUM 133 MMOL/L (136-145)
[2017-12-12 07:15] LABS: BILIRUBIN,DIRECT 6.8 MG/DL (0.0-0.3)
[2017-12-12] MEDS: Pantoprazole Inj IV SCH (08:25)
[2017-12-12] MEDS: Docusate 100mg cap ORAL SCH (08:58)
[2017-12-12] MEDS: Thiamine 100mg tab ORAL SCH (08:58)
[2017-12-12] MEDS: Multivitamin w/Minerals tab ORAL SCH (08:58)
[2017-12-12] MEDS: Lactulose 20gm/30ml UDC ORAL SCH ×2 (09:00→17:37)
--- NOTE | 2017-12-12 10:06 | GI Progress Note ---
Assessment/Plan Problems: (1) Bloody stool ICD Codes: K92.1 - Melena SNOMED: 616279381 (2) Hepatic encephalopathy ICD Codes: K72.90 - Hepatic failure, unspecified without coma SNOMED: 04202697 (3) Altered mental status ICD Codes: R41.82 - Altered mental status, unspecified SNOMED: 738660630 Qualifiers: Qualified Codes: R41.0 - Disorientation, unspecified (4) Anemia ICD Codes: D64.9 - Anemia, unspecified SNOMED: 839657592 Qualifiers: Qualified Codes: D64.9 - Anemia, unspecified Status: stable, progressing Status Narrative Discussed with Dr. Eckert. Assessment/Plan hep panel negative elevated lipase, ammonia levels iron overload abdominal U/S reviewed >> Hepatocellular disease. No ductal dilation. s/p paracentesis yielding 600 cc fluid r/o SBP discriminant function calculated >> patient will benefit from corticosteroid therapy SUMMARY OF FINDINGS: 1. Esophageal varices, status post banding x 3. 2. Portal hypertensive gastropathy. 3. Internal and external hemorrhoid. 4. One colonic polyp removed. RECOMMENDATIONS: start prednisone 40mg daily x 1 month, then begin to taper prednisone by 5mg weekly. The patient will need repeat banding in 4-6 weeks as an outpatient with f/u CBC , CMP. cont Lactulose + Xifaxan monitor H&H, prn transfusions bowel regime ppi trend LFTs, ammonia, lipase fu labs Subjective Subjective feels better, more alert Objective Last 24 Hour Vital Signs Date Time Temp Pulse Resp B/P (MAP) Pulse Ox O2 Delivery O2 Flow Rate FiO2 12/12/17 08:46 Room Air 12/12/17 08:00 97.3 98 20 123/76 96 97.3 12/12/17 03:50 97.7 97 20 105/64 96 Room Air 97.7 12/12/17 01:20 98.1 96 20 104/61 97 Room Air 98.1 12/12/17 00:00 98.1 96 20 104/61 94 Room Air 98.1 12/11/17 19:54 97.9 98 20 121/77 98 Room Air 97.9 12/11/17 15:54 97.9 104 19 115/83 96 97.9 12/11/17 11:50 98.1 104 19 126/85 95 98.1 Intake and Output 12/11/17 12/12/17 19:00 07:00 Intake Total 415 ml 530 ml Balance 415 ml 530 ml Intake Oral 360 ml 360 ml IV Total 55 ml 170 ml # Voids 4 # Bowel Movements 3 Laboratory Tests Test 12/12/17 04:55 White Blood Count 11.5 K/UL (4.8-10.8) H Red Blood Count 3.31 M/UL (4.70-6.10) L Hemoglobin 8.6 G/DL (14.2-18.0) L Hematocrit 25.6 % (42.0-52.0) L Mean Corpuscular Volume 77 FL (80-99) L Mean Corpuscular Hemoglobin 26.0 PG (27.0-31.0) L Mean Corpuscular Hemoglobin Concent 33.6 G/DL (32.0-36.0) Red Cell Distribution Width 19.2 % (11.6-14.8) H Platelet Count 81 K/UL (150-450) L Mean Platelet Volume 8.2 FL (6.5-10.1) Neutrophils (%) (Auto) % (45.0-75.0) Lymphocytes (%) (Auto) % (20.0-45.0) Monocytes (%) (Auto) % (1.0-10.0) Eosinophils (%) (Auto) % (0.0-3.0) Basophils (%) (Auto) % (0.0-2.0) Differential Total Cells Counted 100 Neutrophils % (Manual) 55 % (45-75) Lymphocytes % (Manual) 29 % (20-45) Monocytes % (Manual) 12 % (1-10) H Eosinophils % (Manual) 4 % (0-3) H Basophils % (Manual) 0 % (0-2) Band Neutrophils 0 % (0-8) Platelet Estimate Decreased L Platelet Morphology Normal Hypochromasia 2+ Anisocytosis 2+ Microcytosis 1+ Spherocytes 1+ Sodium Level 133 MMOL/L (136-145) L Potassium Level 3.9 MMOL/L (3.5-5.1) Chloride Level 102 MMOL/L (98-107) Carbon Dioxide Level 25 MMOL/L (21-32) Anion Gap 7 mmol/L (5-15) Blood Urea Nitrogen 9 mg/dL (7-18) Creatinine 0.9 MG/DL (0.55-1.30) Estimat Glomerular Filtration Rate > 60 mL/min (>60) Glucose Level 122 MG/DL (74-106) H Calcium Level 8.5 MG/DL (8.5-10.1) Total Bilirubin 8.9 MG/DL (0.2-1.0) H Direct Bilirubin 6.8 MG/DL (0.0-0.3) H Aspartate Amino Transf (AST/SGOT) 119 U/L (15-37) H Alanine Aminotransferase (ALT/SGPT) 51 U/L (12-78) Alkaline Phosphatase 133 U/L (46-116) H Total Protein 6.5 G/DL (6.4-8.2) Albumin 1.7 G/DL (3.4-5.0) L Globulin 4.8 g/dL Albumin/Globulin Ratio 0.4 (1.0-2.7) L Height (Feet): 5 Height (Inches): 5.00 Weight (Pounds): 143 General Appearance: WD/WN, no apparent distress, alert Cardiovascular: normal rate Respiratory/Chest: normal breath sounds, no respiratory distress Abdominal Exam: normal bowel sounds, non tender, soft Extremities: normal range of motion, non-tender Estela Paredes N.P. Dec 12, 2017 10:06
[2017-12-12] MEDS ORDERED: LACTULOSE20 GM/301 ORAL (15:16)
[2017-12-12] MEDS ORDERED: PREDNISONE20 MG ORAL (15:16)
[2017-12-12] MEDS ORDERED: FOLIC ACID1 MG ORAL (15:16)
[2017-12-12] MEDS ORDERED: THIAMINE HCL100 MG ORAL (15:16)
[2017-12-12] MEDS ORDERED: NITROFURANTOIN100 M2 ORAL (15:16)
[2017-12-12] MEDS ORDERED: XIFAXAN550 MG ORAL (15:16)
[2017-12-12] MEDS ORDERED: MULTIVITAMINS1 EAC8 ORAL (15:16)
[2017-12-12] MEDS ORDERED: PANTOPRAZOLE SO40 MG ORAL (15:16)
--- NOTE | 2017-12-12 15:17 | Discharge Instructions ---
Discharge Instructions Discharge Instructions Follow up with: primary care doctor within 1 week Call MD/Return to Hospital if: fevers, chest pain, SOB, abd pain, nausea/ vomiting Diet: 2 GM sodium (low sodium) Resume Normal Activity?: Yes Activity: resume normal activities For Congestive Heart Failure Reminder Report to your physician any weight gain of 5 pounds or more in one week. Mary Monae M.D. Dec 12, 2017 15:17
[2017-12-12 16:13] LABS: HEMATOCRIT 27.4 % (42.0-52.0); HEMOGLOBIN 8.9 G/DL (14.2-18.0); MEAN CORPUSCULAR VOLUME 78 FL (80-99); PLATELET COUNT 91 K/UL (150-450); RED BLOOD COUNT 3.51 M/UL (4.70-6.10); RED CELL DISTRIBUTION WIDTH 19.9 % (11.6-14.8)
--- NOTE | 2017-12-12 16:20 | Cardiac Electrophysiology PN ---
Assessment/Plan Assessment/Plan 1. Initial troponin leak. The second troponin is negative. Does not have any chest pain, not a candidate for stress test. 2. The patient has advanced cirrhosis of the liver and hyperbilirubinemia. 3. Sinus tachycardia with no evidence of atrial fibrillation or supraventricular tachycardia. His echocardiogram showed ejection fraction of 60% to 65% with diastolic dysfunction. 4. Alcoholic cirrhosis and hepatic encephalopathy. 5. Anemia. 6. Bloody stool with melena. Evaluation by Dr. Eckert.S/P EGD and colonoscopy 7. Ascites, status post paracentesis of 600 mL fluid. On lactulose and Xifaxan. 8. Hematuria. MADISYN RN Subjective Subjective Alert and oriented on Med surge. Says has hematuria now. Objective Last 24 Hour Vital Signs Date Time Temp Pulse Resp B/P (MAP) Pulse Ox O2 Delivery O2 Flow Rate FiO2 12/12/17 16:00 97.9 93 19 132/82 94 97.9 12/12/17 12:00 97.3 82 20 118/81 96 97.3 12/12/17 08:46 Room Air 12/12/17 08:00 97.3 98 20 123/76 96 97.3 12/12/17 03:50 97.7 97 20 105/64 96 Room Air 97.7 12/12/17 01:20 98.1 96 20 104/61 97 Room Air 98.1 12/12/17 00:00 98.1 96 20 104/61 94 Room Air 98.1 12/11/17 19:54 97.9 98 20 121/77 98 Room Air 97.9 Intake and Output 12/11/17 12/12/17 19:00 07:00 Intake Total 415 ml 530 ml Balance 415 ml 530 ml Intake Oral 360 ml 360 ml IV Total 55 ml 170 ml # Voids 4 # Bowel Movements 3 Laboratory Tests Test 12/12/17 04:55 12/12/17 15:35 White Blood Count 11.5 K/UL (4.8-10.8) H 11.0 K/UL (4.8-10.8) H Red Blood Count 3.31 M/UL (4.70-6.10) L 3.51 M/UL (4.70-6.10) L Hemoglobin 8.6 G/DL (14.2-18.0) L 8.9 G/DL (14.2-18.0) L Hematocrit 25.6 % (42.0-52.0) L 27.4 % (42.0-52.0) L Mean Corpuscular Volume 77 FL (80-99) L 78 FL (80-99) L Mean Corpuscular Hemoglobin 26.0 PG (27.0-31.0) L 25.4 PG (27.0-31.0) L Mean Corpuscular Hemoglobin Concent 33.6 G/DL (32.0-36.0) 32.5 G/DL (32.0-36.0) Red Cell Distribution Width 19.2 % (11.6-14.8) H 19.9 % (11.6-14.8) H Platelet Count 81 K/UL (150-450) L 91 K/UL (150-450) L Mean Platelet Volume 8.2 FL (6.5-10.1) 8.6 FL (6.5-10.1) Neutrophils (%) (Auto) % (45.0-75.0) % (45.0-75.0) Lymphocytes (%) (Auto) % (20.0-45.0) % (20.0-45.0) Monocytes (%) (Auto) % (1.0-10.0) % (1.0-10.0) Eosinophils (%) (Auto) % (0.0-3.0) % (0.0-3.0) Basophils (%) (Auto) % (0.0-2.0) % (0.0-2.0) Differential Total Cells Counted 100 Neutrophils % (Manual) 55 % (45-75) Pending Lymphocytes % (Manual) 29 % (20-45) Pending Monocytes % (Manual) 12 % (1-10) H Eosinophils % (Manual) 4 % (0-3) H Basophils % (Manual) 0 % (0-2) Band Neutrophils 0 % (0-8) Platelet Estimate Decreased L Pending Platelet Morphology Normal Pending Hypochromasia 2+ Anisocytosis 2+ Microcytosis 1+ Spherocytes 1+ Sodium Level 133 MMOL/L (136-145) L Potassium Level 3.9 MMOL/L (3.5-5.1) Chloride Level 102 MMOL/L (98-107) Carbon Dioxide Level 25 MMOL/L (21-32) Anion Gap 7 mmol/L (5-15) Blood Urea Nitrogen 9 mg/dL (7-18) Creatinine 0.9 MG/DL (0.55-1.30) Estimat Glomerular Filtration Rate > 60 mL/min (>60) Glucose Level 122 MG/DL (74-106) H Calcium Level 8.5 MG/DL (8.5-10.1) Total Bilirubin 8.9 MG/DL (0.2-1.0) H Direct Bilirubin 6.8 MG/DL (0.0-0.3) H Aspartate Amino Transf (AST/SGOT) 119 U/L (15-37) H Alanine Aminotransferase (ALT/SGPT) 51 U/L (12-78) Alkaline Phosphatase 133 U/L (46-116) H Total Protein 6.5 G/DL (6.4-8.2) Albumin 1.7 G/DL (3.4-5.0) L Globulin 4.8 g/dL Albumin/Globulin Ratio 0.4 (1.0-2.7) L Objective HEAD AND NECK: Shows no JVD. LUNGS: Coarse rhonchi. CARDIOVASCULAR: Regular S1 and S2 with no gallop or murmur. ABDOMEN: Soft with ascites. EXTREMITIES: No pitting edema. YAW SCHUSTER Dec 12, 2017 16:20
[2017-12-12] MEDS ORDERED: NS 275ml ONE (17:55)
[2017-12-12] MEDS ORDERED: Tubing IV Secondary IV ONE (17:55)
[2017-12-12 18:31] LABS: BILIRUBIN, URINE 3+ (NEGATIVE); COLOR,URINE BROWN; GLUCOSE, URINE (UA) NEGATIVE (NEGATIVE); KETONES,URINE 2+ (NEGATIVE); LEUKOCYTE ESTERASE ,URINE 2+ (NEGATIVE); NITRITE,URINE POSITIVE (NEGATIVE); PH,URINE 6.5 (4.5-8.0); PROTEIN,URINE 2+ (NEGATIVE); UROBILINOGEN,URINE 4 MG/DL (0.0-1.0)
[2017-12-12 18:37] LABS: APPEARANCE,URINE CLOUDY
[2017-12-12] MEDS: Iron Sucrose 100 MG in NS 55 ML IV SCH (21:49)
--- NOTE | 2017-12-12 23:56 | General Progress Note ---
Assessment/Plan Problem List: (1) Acute hepatic encephalopathy ICD Codes: K72.00 - Acute and subacute hepatic failure without coma SNOMED: 20085413 (2) Alcoholic cirrhosis ICD Codes: K70.30 - Alcoholic cirrhosis of liver without ascites SNOMED: 792697562 (3) Acute blood loss anemia ICD Codes: D62 - Acute posthemorrhagic anemia SNOMED: 758297530 (4) Alcohol abuse with physiological dependence ICD Codes: F10.20 - Alcohol dependence, uncomplicated SNOMED: 26087233, 52302382 (5) Coagulopathy ICD Codes: D68.9 - Coagulation defect, unspecified SNOMED: 31257669 (6) Anemia of chronic disease ICD Codes: D63.8 - Anemia in other chronic diseases classified elsewhere SNOMED: 693747065 (7) Sepsis ICD Codes: A41.9 - Sepsis, unspecified organism SNOMED: 58335237 (8) UTI (urinary tract infection) ICD Codes: N39.0 - Urinary tract infection, site not specified SNOMED: 07195597 Qualifiers: Qualified Codes: N30.01 - Acute cystitis with hematuria (9) Acute upper and lower GI bleed (10) Esophgeal varices s/p banding x 3 (11) Internal and external hemorrhoids without complication ICD Codes: K64.4 - Residual hemorrhoidal skin tags; K64.8 - Other hemorrhoids SNOMED: 77234115, 74296804, 21515521 (12) Colonic polyp ICD Codes: K63.5 - Polyp of colon SNOMED: 85466246 (13) Hematuria ICD Codes: R31.9 - Hematuria, unspecified SNOMED: 47634836 Status: stable Assessment/Plan GI consulted Lactulose + Rifaximin Monitor mental status closely Prednisone 40mg daily x 1 month, then begin to taper prednisone by 5mg weekly for alcoholic hepatitis s/p EGD and colo on 12/10/17 which showed esophageal varices s/p banding x 3, internal and external hemorrhoids, 1 colon polyp s/p removal The patient will need repeat banding in 4-6 weeks as an outpatient Regular diet as tolerated s/p 4U pRBCs thus far Trend CBC s/p paracentesis on 12/10/17 w/ 600mL removed. No e/o SBP ID consulted Meropenem for UTI (12/10-) --> consider transition to macrobid on d/c F/u urine culture--ESBL E. Coli Cardiology consulted given elevated troponin Trend trop/EKG--downtrending Check TTE--preserved EF Repeat U/A given c/o hematuria Consider urology eval if persists SW consult for substance abuse resources Pain control, bowel regimen Supportive care Possible d/c tomorrow if remains stable FULL CODE D/w pt, RN, SW/CM, GI regarding mgmt and dispo. D/w ID re abx, D/w GI re prednisone Subjective Date patient seen: Dec 12, 2017 Time patient seen: 15:00 ROS Limited/Unobtainable: No Constitutional: Reports: no symptoms HEENT: Reports: no symptoms Cardiovascular: Reports: no symptoms Respiratory: Reports: no symptoms Gastrointestinal/Abdominal: Reports: no symptoms Genitourinary: Reports: hematuria Neurologic/Psychiatric: Reports: no symptoms Endocrine: Reports: no symptoms Hematologic/Lymphatic: Reports: no symptoms Allergies: Coded Allergies: No Known Allergies (Unverified , 12/08/17) Subjective No acute o/n events s/p paracentesis w/ 600mL removed. Fluid studies neg for SBP Hgb downtrending to 8.5 s/p EGD and colo which showed esopahgeal varices s/p banding x3, internal and external hemorrhoids, 1 colon polyp s/p removal Pt more awake, alert. Denies pain, f/c, chest pain, SOB, abd pain. No further bloody BMs. Tolerating regular diet C/o intermittent small amts of blood in urine since last night Objective Last 24 Hour Vital Signs Date Time Temp Pulse Resp B/P (MAP) Pulse Ox O2 Delivery O2 Flow Rate FiO2 12/12/17 20:00 97.2 87 21 117/76 92 97.2 12/12/17 16:37 Room Air 12/12/17 16:00 97.9 93 19 132/82 94 97.9 12/12/17 12:05 Room Air 12/12/17 12:00 97.3 82 20 118/81 96 97.3 12/12/17 08:46 Room Air 12/12/17 08:00 97.3 98 20 123/76 96 97.3 12/12/17 03:50 97.7 97 20 105/64 96 Room Air 97.7 12/12/17 01:20 98.1 96 20 104/61 97 Room Air 98.1 12/12/17 00:00 98.1 96 20 104/61 94 Room Air 98.1 Intake and Output 12/11/17 12/12/17 19:00 07:00 Intake Total 415 ml 530 ml Balance 415 ml 530 ml Intake Oral 360 ml 360 ml IV Total 55 ml 170 ml # Voids 4 # Bowel Movements 3 Laboratory Tests 12/12/17 04:55: White Blood Count 11.5H, Red Blood Count 3.31L, Hemoglobin 8.6L, Hematocrit 25.6L, Mean Corpuscular Volume 77L, Mean Corpuscular Hemoglobin 26.0L, Mean Corpuscular Hemoglobin Concent 33.6, Red Cell Distribution Width 19.2H, Platelet Count 81L, Mean Platelet Volume 8.2, Neutrophils (%) (Auto) , Lymphocytes (%) (Auto) , Monocytes (%) (Auto) , Eosinophils (%) (Auto) , Basophils (%) (Auto) , Differential Total Cells Counted 100, Neutrophils % ( Manual) 55, Lymphocytes % (Manual) 29, Monocytes % (Manual) 12H, Eosinophils % ( Manual) 4H, Basophils % (Manual) 0, Band Neutrophils 0, Platelet Estimate DecreasedL, Platelet Morphology Normal, Hypochromasia 2+, Anisocytosis 2+, Microcytosis 1+, Spherocytes 1+, Sodium Level 133L, Potassium Level 3.9, Chloride Level 102, Carbon Dioxide Level 25, Anion Gap 7, Blood Urea Nitrogen 9 , Creatinine 0.9, Estimat Glomerular Filtration Rate > 60, Glucose Level 122H, Calcium Level 8.5, Total Bilirubin 8.9H, Direct Bilirubin 6.8H, Aspartate Amino Transf (AST/SGOT) 119H, Alanine Aminotransferase (ALT/SGPT) 51, Alkaline Phosphatase 133H, Total Protein 6.5, Albumin 1.7L, Globulin 4.8, Albumin/ Globulin Ratio 0.4L 12/12/17 15:35: White Blood Count 11.0H, Red Blood Count 3.51L, Hemoglobin 8.9L, Hematocrit 27.4L, Mean Corpuscular Volume 78L, Mean Corpuscular Hemoglobin 25.4L, Mean Corpuscular Hemoglobin Concent 32.5, Red Cell Distribution Width 19.9H, Platelet Count 91L, Mean Platelet Volume 8.6, Neutrophils (%) (Auto) , Lymphocytes (%) (Auto) , Monocytes (%) (Auto) , Eosinophils (%) (Auto) , Basophils (%) (Auto) , Differential Total Cells Counted 100, Neutrophils % ( Manual) 65, Lymphocytes % (Manual) 23, Monocytes % (Manual) 9, Eosinophils % ( Manual) 2, Basophils % (Manual) 1, Band Neutrophils 0, Platelet Estimate DecreasedL, Platelet Morphology Normal, Hypochromasia 2+, Anisocytosis 2+, Microcytosis 1+, Target Cells 1+ 12/12/17 16:50: Urine Color Brown, Urine Appearance Cloudy, Urine pH 6.5, Urine Specific [place] 1.010, Urine Protein 2+H, Urine Glucose (UA) Negative, Urine Ketones 2+H , Urine Occult Blood 5+H, Urine Nitrite PositiveH, Urine Bilirubin 3+H, Urine Ictotest Positive, Urine Urobilinogen 4H, Urine Leukocyte Esterase 2+H, Urine RBC TntcH, Urine WBC 20-30H, Urine Squamous Epithelial Cells None, Urine Bacteria ModerateH Height (Feet): 5 Height (Inches): 5.00 Weight (Pounds): 143 Objective General: alert, cooperative, no distress, appears stated age Head: normocephalic, without obvious abnormality, atraumatic Eyes: conjunctivae/corneas clear. PERRL, EOM's intact Throat: lips, mucosa, and tongue normal. MMM Neck: supple, symmetrical, trachea midline, and no JVD Lungs: clear to auscultation bilaterally Heart: regular rate and rhythm, S1, S2 normal, no murmur, click, rub or gallop Abdomen: soft, non-tender, mildly distended, bowel sounds normal; Extremities: extremities normal, atraumatic, no cyanosis or edema Pulses: 2+ and symmetric Skin: skin color, texture, turgor normal; no rashes or lesions Neurologic: grossly normal, no focal deficits Mary Monae M.D. Dec 12, 2017 23:56
[2017-12-13] VITALS: BP 131/81
--- NOTE | 2017-12-13 02:15 | Consultation ---
DATE OF CONSULTATION: 12/11/2017 NOTE: POOR AUDIO HEMATOLOGY/ONCOLOGY CONSULTATION CONSULTING PHYSICIAN: Manolo Law M.D. REQUESTING PHYSICIAN: Heather Gray M.D. REASON FOR CONSULTATION: Evaluation of anemia, thrombocytopenia, . IDENTIFYING DATA: Dear Dr. Gray, The patient is a pleasant 41-year-old male with past medical history significant for alcoholic liver cirrhosis, hypertension, and history of alcohol abuse, who presents with altered mental status, at baseline A and O x3, due to altered mental status, history of being lethargic, somnolent, confused. Has been drinking alcohol heavily for many years. No nausea, vomiting, diarrhea, constipation, or chest pain. In the ER, found to have elevated ammonia. UA was positive, on intravenous antibiotics. No active signs of as well. Hematology Service was consulted given ongoing thrombocytopenia as well as anemia. PAST MEDICAL HISTORY: As noted above, alcoholic liver cirrhosis as well as splenomegaly and alcohol abuse. PAST SURGICAL HISTORY: None noted. MEDICATIONS: Pantoprazole and atenolol. ALLERGIES: No known drug allergies. REVIEW OF SYSTEMS: CONSTITUTIONAL: No fevers, chills, or night sweats. SKIN: No rashes, bumps, or itching. HEENT: No headache, hearing or vision changes. BREASTS: No lumps, pain, or discharge. PULMONARY: No cough, sputum, or shortness of breath. GASTROINTESTINAL: No nausea, vomiting, or diarrhea. GENITOURINARY: No dysuria, frequency, or urgency. MUSCULOSKELETAL: No joint swelling, muscle pain, or trauma. PHYSICAL EXAMINATION: VITAL SIGNS: Reviewed. GENERAL: No acute distress. PULMONARY: Decreased breath sounds. CARDIOVASCULAR: Regular rate. No S3 or S4. ABDOMEN: Soft, nontender, and nondistended. EXTREMITIES: No cyanosis, swelling, or edema. LABORATORY AND DIAGNOSTIC DATA: total bilirubin 11.5, direct bilirubin was 8.4. Current total bilirubin 8.9, direct bilirubin 6.8. AST of 19 and ALT of 51. INR 1.6. WBC , hemoglobin 8.6, hematocrit 26, and platelet count 81,000. ASSESSMENT AND RECOMMENDATION: 1. Thrombocytopenia, likely secondary to underlying liver cirrhosis splenomegaly. Continue to closely monitor. Platelet goal is above 20,000. 2. Anemia due to underlying chronic disease. Continue to closely monitor. Anemia workup from the past has been reviewed. Hemoglobin goal is above 7. 3. Hepatic encephalopathy. Closely monitor with GI Service. The patient currently is on lactulose on prednisone taper as well. 4. Esophageal varices, status post banding x3. 5. Internal and external hemorrhoids. 6. Extended-spectrum beta-lactamase Escherichia coli urinary tract infection. Currently on meropenem. Cultures follow. 7. Altered mental status. I appreciate the consultation. Manolo Law M.D. DR: EVERT JOB#: [id number] CC:
[2017-12-13] MEDS: Meropenem 500 MG in NS 55 ML IVPB SCH ×3 (03:23→21:10)
[2017-12-13 03:31] VITALS: BP 110/69
[2017-12-13 07:30] LABS: HEMATOCRIT 26.1 % (42.0-52.0); HEMOGLOBIN 8.5 G/DL (14.2-18.0); MEAN CORPUSCULAR VOLUME 77 FL (80-99); PLATELET COUNT 75 K/UL (150-450); RED BLOOD COUNT 3.37 M/UL (4.70-6.10); RED CELL DISTRIBUTION WIDTH 20.5 % (11.6-14.8); WHITE BLOOD COUNT 8.9 K/UL (4.8-10.8)
[2017-12-13 07:41] LABS: AMMONIA 14 umol/L (11-32)
[2017-12-13 07:45] LABS: ALANINE AMINOTRANSFERASE 54 U/L (12-78); ALBUMIN 1.8 G/DL (3.4-5.0); ALBUMIN/GLOBULIN RATIO 0.4 (1.0-2.7); ALKALINE PHOSPHATASE 143 U/L (46-116); ANION GAP 5 mmol/L (5-15); ASPARTATE AMINO TRANSFERASE 136 U/L (15-37); BILIRUBIN,TOTAL 10.5 MG/DL (0.2-1.0); BLOOD UREA NITROGEN 10 mg/dL (7-18); CALCIUM 8.4 MG/DL (8.5-10.1); CARBON DIOXIDE 25 MMOL/L (21-32); CHLORIDE 102 MMOL/L (98-107); CREATININE 0.8 MG/DL (0.55-1.30); POTASSIUM 4.4 MMOL/L (3.5-5.1); SODIUM 132 MMOL/L (136-145)
[2017-12-13 07:53] LABS: BILIRUBIN,DIRECT 7.4 MG/DL (0.0-0.3)
[2017-12-13 08:00] VITALS: BP 121/80
[2017-12-13] MEDS: Thiamine 100mg tab ORAL SCH (08:56)
[2017-12-13] MEDS: Multivitamin w/Minerals tab ORAL SCH (08:56)
[2017-12-13] MEDS: Lactulose 20gm/30ml UDC ORAL SCH ×2 (08:56→17:02)
[2017-12-13] MEDS ORDERED: Tubing IV Secondary IV ONE (11:10)
[2017-12-13 12:00] VITALS: BP 121/79
--- NOTE | 2017-12-13 12:21 | Infectious Diseases Prog Note ---
Assessment/Plan Assessment/Plan ASSESSMENT AND PLAN: 1. esbl e.coli uti, hematuria, ? sepsis, ams, leukocytosis - - meropenem - day # 4 abx - urology f/u - watch labs - d/w Floresita Le NP 2. End-stage liver disease, cirrhosis, esophageal varices, anemia, possible gastrointestinal bleed. 3. ETOH dependency. 4. Anemia. 5. Altered mental status. 6. Coagulopathy. 7. Encephalopathy. 8. Sepsis with systemic inflammatory response syndrome criteria, leukocytosis, and elevated heart rate. 9. Allergies are negative. 10. MAR was noted. 11. Case was discussed with Dr. Hernandez. 12. Continue treatment per primary consultants. 13. Notes and records were noted. Orders were noted. Subjective Constitutional: Denies: fever HEENT: Denies: congestion Respiratory: Denies: shortness of breath Cardiovascular: Denies: chest pain Gastrointestinal/Abdominal: Denies: nausea, vomiting Genitourinary: Reports: hematuria Neurologic: Denies: headache Psychiatric: Denies: depression Skin: Denies: rash Hematologic: Denies: bleeding Musculoskeletal: Denies: pain Allergies: Coded Allergies: No Known Allergies (Unverified , 12/08/17) Objective Vital Signs Last 24 Hour Vital Signs Date Time Temp Pulse Resp B/P (MAP) Pulse Ox O2 Delivery O2 Flow Rate FiO2 12/13/17 08:19 Room Air 12/13/17 08:00 97.7 90 20 121/80 96 97.7 12/13/17 03:31 98.1 88 20 110/69 93 Room Air 98.1 12/13/17 00:00 97.3 85 20 131/81 96 97.3 12/12/17 20:00 97.2 87 21 117/76 92 97.2 12/12/17 16:37 Room Air 12/12/17 16:00 97.9 93 19 132/82 94 97.9 Height (Feet): 5 Height (Inches): 5.00 Weight (Pounds): 143 General Appearance: no acute distress HEENT: normocephalic, atraumatic, anicteric, mucous membranes moist Respiratory/Chest: lungs clear, normal breath sounds, no respiratory distress, no accessory muscle use Cardiovascular: normal rate, regular rhythm, no gallop/murmur Abdomen: normal bowel sounds, soft, non tender, no organomegaly, non distended Genitourinary: other - no cva pain, no [place] Extremities: no cyanosis, no clubbing Skin: no rash Neurologic/Psychiatric: contact center professional II-XII grossly normal, alert, oriented x 3, responsive Lymphatic: no neck adenopathy Musculoskeletal: no effusion Objective Chest x-ray - Impression: No acute process This agrees with the preliminary [facility] Microbiology Date/Time Source Procedure Growth Status 12/12/17 16:50 Urine,Clean Catch Urine Culture - Preliminary NO GROWTH Resulted 12/08/17 12:30 Abdominal Fluid Gram Stain - Final Resulted 12/08/17 12:30 Abdominal Fluid Body Fluid Culture - Preliminary NO GROWTH AFTER 72 HOURS Resulted Microbiology Date/Time Source Procedure Growth Status 12/12/17 16:50 Urine,Clean Catch Urine Culture - Preliminary NO GROWTH Resulted Laboratory Tests Test 12/12/17 15:35 12/12/17 16:50 12/13/17 05:40 White Blood Count 11.0 K/UL (4.8-10.8) H 8.9 K/UL (4.8-10.8) Red Blood Count 3.51 M/UL (4.70-6.10) L 3.37 M/UL (4.70-6.10) L Hemoglobin 8.9 G/DL (14.2-18.0) L 8.5 G/DL (14.2-18.0) L Hematocrit 27.4 % (42.0-52.0) L 26.1 % (42.0-52.0) L Mean Corpuscular Volume 78 FL (80-99) L 77 FL (80-99) L Mean Corpuscular Hemoglobin 25.4 PG (27.0-31.0) L 25.1 PG (27.0-31.0) L Mean Corpuscular Hemoglobin Concent 32.5 G/DL (32.0-36.0) 32.5 G/DL (32.0-36.0) Red Cell Distribution Width 19.9 % (11.6-14.8) H 20.5 % (11.6-14.8) H Platelet Count 91 K/UL (150-450) L 75 K/UL (150-450) L Mean Platelet Volume 8.6 FL (6.5-10.1) 7.3 FL (6.5-10.1) Neutrophils (%) (Auto) % (45.0-75.0) % (45.0-75.0) Lymphocytes (%) (Auto) % (20.0-45.0) % (20.0-45.0) Monocytes (%) (Auto) % (1.0-10.0) % (1.0-10.0) Eosinophils (%) (Auto) % (0.0-3.0) % (0.0-3.0) Basophils (%) (Auto) % (0.0-2.0) % (0.0-2.0) Differential Total Cells Counted 100 100 Neutrophils % (Manual) 65 % (45-75) 79 % (45-75) H Lymphocytes % (Manual) 23 % (20-45) 10 % (20-45) L Monocytes % (Manual) 9 % (1-10) 6 % (1-10) Eosinophils % (Manual) 2 % (0-3) 0 % (0-3) Basophils % (Manual) 1 % (0-2) 0 % (0-2) Band Neutrophils 0 % (0-8) 5 % (0-8) Platelet Estimate Decreased L Decreased L Platelet Morphology Normal Normal Hypochromasia 2+ 1+ Anisocytosis 2+ 2+ Microcytosis 1+ 1+ Target Cells 1+ Urine Color Brown Urine Appearance Cloudy Urine pH 6.5 (4.5-8.0) Urine Specific [place] 1.010 (1.005-1.035) Urine Protein 2+ (NEGATIVE) H Urine Glucose (UA) Negative (NEGATIVE) Urine Ketones 2+ (NEGATIVE) H Urine Occult Blood 5+ (NEGATIVE) H Urine Nitrite Positive (NEGATIVE) H Urine Bilirubin 3+ (NEGATIVE) H Urine Ictotest Positive Urine Urobilinogen 4 MG/DL (0.0-1.0) H Urine Leukocyte Esterase 2+ (NEGATIVE) H Urine RBC Tntc /HPF (0 - 0) H Urine WBC 20-30 /HPF (0 - 0) H Urine Squamous Epithelial Cells None /LPF (NONE/OCC) Urine Bacteria Moderate /HPF (NONE) H Basophilic Stippling Occasional Sodium Level 132 MMOL/L (136-145) L Potassium Level 4.4 MMOL/L (3.5-5.1) Chloride Level 102 MMOL/L (98-107) Carbon Dioxide Level 25 MMOL/L (21-32) Anion Gap 5 mmol/L (5-15) Blood Urea Nitrogen 10 mg/dL (7-18) Creatinine 0.8 MG/DL (0.55-1.30) Estimat Glomerular Filtration Rate > 60 mL/min (>60) Glucose Level 148 MG/DL (74-106) H Calcium Level 8.4 MG/DL (8.5-10.1) L Total Bilirubin 10.5 MG/DL (0.2-1.0) H Direct Bilirubin 7.4 MG/DL (0.0-0.3) H Aspartate Amino Transf (AST/SGOT) 136 U/L (15-37) H Alanine Aminotransferase (ALT/SGPT) 54 U/L (12-78) Alkaline Phosphatase 143 U/L (46-116) H Ammonia 14 umol/L (11-32) Total Protein 6.6 G/DL (6.4-8.2) Albumin 1.8 G/DL (3.4-5.0) L Globulin 4.8 g/dL Albumin/Globulin Ratio 0.4 (1.0-2.7) L Current Medications Medications (Trade) Dose Ordered Sig/Jl Route PRN Reason Start Time Stop Time Status Last Admin Dose Admin Bisacodyl (Dulcolax) 10 mg DAILYPRN PRN RECTAL Constipation 12/10/17 18:30 01/09/18 18:29 Dextrose (Dextrose 50%) STAT PRN IV Hypoglycemia 12/10/17 18:30 01/09/18 18:29 Folic Acid (Folate) 1 mg DAILY ORAL 12/11/17 09:00 01/07/18 18:29 12/13/17 08:55 Iron Sucrose 100 mg/Sodium Chloride 60 ml @ 240 mls/hr BEDTIME IV 12/11/17 21:00 12/15/17 21:14 12/12/17 21:49 Lactulose (Cephulac) 30 gm BID ORAL 12/11/17 18:00 01/07/18 08:59 12/13/17 08:56 Lorazepam (Ativan) 1 mg Q4H PRN ORAL For Anxiety 12/10/17 18:30 12/15/17 18:29 Meropenem 500 mg/ Sodium Chloride 55 ml @ 110 mls/hr Q8H IVPB 12/10/17 20:00 12/15/17 23:59 12/13/17 12:03 Multivitamins Therapeutic (Therapeutic Multivitamin) 1 ea DAILY ORAL 12/11/17 09:00 01/07/18 18:29 12/13/17 08:56 Ondansetron HCl (Zofran) 4 mg Q6H PRN IVP Nausea & Vomiting 12/10/17 18:30 01/07/18 18:29 Pantoprazole (Protonix) 40 mg DAILY ORAL 12/13/17 09:00 01/12/18 08:59 12/13/17 08:56 Polyethylene Glycol (Miralax) 17 gm DAILYPRN PRN ORAL Constipation 12/10/17 18:30 01/09/18 18:29 Prednisone (predniSONE) 40 mg DAILY ORAL 12/12/17 11:00 01/11/18 10:59 12/13/17 08:56 Rifaximin (Xifaxan) 550 mg EVERY 12 HOURS ORAL 12/10/17 21:00 12/15/17 08:59 12/13/17 08:56 Thiamine HCl (Vitamin B1) 100 mg DAILY ORAL 12/11/17 09:00 01/07/18 18:29 12/13/17 08:56 JASS MCCRARY Dec 13, 2017 12:21
--- NOTE | 2017-12-13 12:52 | General Progress Note ---
Assessment/Plan Problem List: (1) Anemia ICD Codes: D64.9 - Anemia, unspecified SNOMED: 601359264 Qualifiers: Qualified Codes: D64.9 - Anemia, unspecified (2) UTI (urinary tract infection) ICD Codes: N39.0 - Urinary tract infection, site not specified SNOMED: 80649183 Qualifiers: Qualified Codes: N30.01 - Acute cystitis with hematuria (3) Altered mental status ICD Codes: R41.82 - Altered mental status, unspecified SNOMED: 830728203 Qualifiers: Qualified Codes: R41.0 - Disorientation, unspecified (4) Hepatic encephalopathy ICD Codes: K72.90 - Hepatic failure, unspecified without coma SNOMED: 13366427 (5) Liver failure ICD Codes: K72.90 - Hepatic failure, unspecified without coma SNOMED: 79736704 Qualifiers: Qualified Codes: K72.10 - Chronic hepatic failure without coma (6) Bloody stool ICD Codes: K92.1 - Melena SNOMED: 112429575 (7) Cirrhosis ICD Codes: K74.60 - Unspecified cirrhosis of liver SNOMED: 10599981 (8) Alcohol abuse with physiological dependence ICD Codes: F10.20 - Alcohol dependence, uncomplicated SNOMED: 97637744, 69975918 (9) lives at home (10) Anemia of chronic disease ICD Codes: D63.8 - Anemia in other chronic diseases classified elsewhere SNOMED: 012173949 (11) Coagulopathy ICD Codes: D68.9 - Coagulation defect, unspecified SNOMED: 18614746 (12) Alcoholic cirrhosis ICD Codes: K70.30 - Alcoholic cirrhosis of liver without ascites SNOMED: 483199577 (13) Sepsis ICD Codes: A41.9 - Sepsis, unspecified organism SNOMED: 23151313 (14) Acute hepatic encephalopathy ICD Codes: K72.00 - Acute and subacute hepatic failure without coma SNOMED: 84086870 (15) Acute blood loss anemia ICD Codes: D62 - Acute posthemorrhagic anemia SNOMED: 966001105 (16) Colonic polyp ICD Codes: K63.5 - Polyp of colon SNOMED: 49646440 (17) Esophgeal varices s/p banding x 3 (18) Internal and external hemorrhoids without complication ICD Codes: K64.4 - Residual hemorrhoidal skin tags; K64.8 - Other hemorrhoids SNOMED: 62392351, 53316617, 21914332 (19) Acute upper and lower GI bleed (20) Hematuria ICD Codes: R31.9 - Hematuria, unspecified SNOMED: 88549648 Status: stable Assessment/Plan On-call urology consulted for hematuria (repeat UA with increased RBCs) GI consulted Lactulose + Rifaximin start prednisone 40mg daily x 1 month, then begin to taper prednisone by 5mg weekly for alcoholic hepatitis. The patient will need repeat banding in 4-6 weeks as an outpatient. Monitor mental status closely s/p EGD and colo on 12/10/17 which showed esophageal varices s/p banding x 3, internal and external hemorrhoids, 1 colon polyp s/p removal Regular diet as tolerated Bowel prep per GI s/p 4U pRBCs thus far Downtrending CBC s/p paracentesis on 12/10/17 w/ 600mL removed. No e/o SBP ID consulted Meropenem for UTI (12/10-) --> consider transition to macrobid on d/c F/u urine culture--ESBL E. Coli Cardiology consulted given elevated troponin Trend trop/EKG--downtrending Check TTE--preserved EF SW consult for substance abuse resources Pain control, bowel regimen Supportive care Possible d/c pending urology clearance FULL CODE D/w pt, RN, SW/CM, GI regarding mgmt and dispo. D/w ID re abx, D/w GI re results of scope, diet Subjective Date patient seen: Dec 13, 2017 Allergies: Coded Allergies: No Known Allergies (Unverified , 12/08/17) Subjective continues to have worsening hematuria Hgb downtrending denies dysuria, fevers, chills. Denies cp, sob, n/v, abdominal pain Objective Last 24 Hour Vital Signs Date Time Temp Pulse Resp B/P (MAP) Pulse Ox O2 Delivery O2 Flow Rate FiO2 12/13/17 12:00 97.2 84 19 121/79 96 97.2 12/13/17 08:19 Room Air 12/13/17 08:00 97.7 90 20 121/80 96 97.7 12/13/17 03:31 98.1 88 20 110/69 93 Room Air 98.1 12/13/17 00:00 97.3 85 20 131/81 96 97.3 12/12/17 20:00 97.2 87 21 117/76 92 97.2 12/12/17 16:37 Room Air 12/12/17 16:00 97.9 93 19 132/82 94 97.9 Intake and Output 12/12/17 12/13/17 19:00 07:00 Intake Total 390 ml Output Total 250 ml Balance 390 ml -250 ml Intake Oral 280 ml IV Total 110 ml Output Urine Total 250 ml # Voids 6 6 # Bowel Movements 3 Laboratory Tests 12/12/17 15:35: White Blood Count 11.0H, Red Blood Count 3.51L, Hemoglobin 8.9L, Hematocrit 27.4L, Mean Corpuscular Volume 78L, Mean Corpuscular Hemoglobin 25.4L, Mean Corpuscular Hemoglobin Concent 32.5, Red Cell Distribution Width 19.9H, Platelet Count 91L, Mean Platelet Volume 8.6, Neutrophils (%) (Auto) , Lymphocytes (%) (Auto) , Monocytes (%) (Auto) , Eosinophils (%) (Auto) , Basophils (%) (Auto) , Differential Total Cells Counted 100, Neutrophils % ( Manual) 65, Lymphocytes % (Manual) 23, Monocytes % (Manual) 9, Eosinophils % ( Manual) 2, Basophils % (Manual) 1, Band Neutrophils 0, Platelet Estimate DecreasedL, Platelet Morphology Normal, Hypochromasia 2+, Anisocytosis 2+, Microcytosis 1+, Target Cells 1+ 12/12/17 16:50: Urine Color Brown, Urine Appearance Cloudy, Urine pH 6.5, Urine Specific [place] 1.010, Urine Protein 2+H, Urine Glucose (UA) Negative, Urine Ketones 2+H , Urine Occult Blood 5+H, Urine Nitrite PositiveH, Urine Bilirubin 3+H, Urine Ictotest Positive, Urine Urobilinogen 4H, Urine Leukocyte Esterase 2+H, Urine RBC TntcH, Urine WBC 20-30H, Urine Squamous Epithelial Cells None, Urine Bacteria ModerateH 12/13/17 05:40: White Blood Count 8.9, Red Blood Count 3.37L, Hemoglobin 8.5L, Hematocrit 26.1L , Mean Corpuscular Volume 77L, Mean Corpuscular Hemoglobin 25.1L, Mean Corpuscular Hemoglobin Concent 32.5, Red Cell Distribution Width 20.5H, Platelet Count 75L, Mean Platelet Volume 7.3, Neutrophils (%) (Auto) , Lymphocytes (%) (Auto) , Monocytes (%) (Auto) , Eosinophils (%) (Auto) , Basophils (%) (Auto) , Differential Total Cells Counted 100, Neutrophils % ( Manual) 79H, Lymphocytes % (Manual) 10L, Monocytes % (Manual) 6, Eosinophils % ( Manual) 0, Basophils % (Manual) 0, Band Neutrophils 5, Platelet Estimate DecreasedL, Platelet Morphology Normal, Hypochromasia 1+, Anisocytosis 2+, Microcytosis 1+, Basophilic Stippling Occasional, Sodium Level 132L, Potassium Level 4.4, Chloride Level 102, Carbon Dioxide Level 25, Anion Gap 5, Blood Urea Nitrogen 10, Creatinine 0.8, Estimat Glomerular Filtration Rate > 60, Glucose Level 148H, Calcium Level 8.4L, Total Bilirubin 10.5H, Direct Bilirubin 7.4H, Aspartate Amino Transf (AST/SGOT) 136H, Alanine Aminotransferase (ALT/SGPT) 54, Alkaline Phosphatase 143H, Ammonia 14, Total Protein 6.6, Albumin 1.8L, Globulin 4.8, Albumin/Globulin Ratio 0.4L Height (Feet): 5 Height (Inches): 5.00 Weight (Pounds): 143 General Appearance: no apparent distress, alert EENT: PERRL/EOMI, normal ENT inspection Neck: non-tender, normal alignment, supple Cardiovascular: normal peripheral pulses, normal rate, regular rhythm Respiratory/Chest: chest wall non-tender, lungs clear, normal breath sounds Abdomen: normal bowel sounds, non tender, soft Neurologic: manager oncology II-XII grossly normal, no motor/sensory deficits, alert, oriented x 3 Floresita Robison N.P. Dec 13, 2017 12:52
--- NOTE | 2017-12-13 15:00 | Cardiac Electrophysiology PN ---
Assessment/Plan Assessment/Plan 1. Initial troponin leak. The second troponin is negative. Does not have any chest pain, not a candidate for stress test. 2. The patient has advanced cirrhosis of the liver and hyperbilirubinemia. 3. Sinus tachycardia with no evidence of atrial fibrillation or supraventricular tachycardia. His echocardiogram showed ejection fraction of 60% to 65% with diastolic dysfunction. 4. Alcoholic cirrhosis and hepatic encephalopathy. 5. Anemia. 6. Bloody stool with melena. Evaluation by Dr. Eckert.S/P EGD and colonoscopy 7. Ascites, status post paracentesis of 600 mL fluid. On lactulose and Xifaxan. 8. Hematuria.U/A pending. Refused oliveira. Dr Luu to follow. MADISYN RN Subjective Subjective Alert still has hematuria now. Objective Last 24 Hour Vital Signs Date Time Temp Pulse Resp B/P (MAP) Pulse Ox O2 Delivery O2 Flow Rate FiO2 12/13/17 13:45 Room Air 12/13/17 12:00 97.2 84 19 121/79 96 97.2 12/13/17 08:19 Room Air 12/13/17 08:00 97.7 90 20 121/80 96 97.7 12/13/17 03:31 98.1 88 20 110/69 93 Room Air 98.1 12/13/17 00:00 97.3 85 20 131/81 96 97.3 12/12/17 20:00 97.2 87 21 117/76 92 97.2 12/12/17 16:37 Room Air 12/12/17 16:00 97.9 93 19 132/82 94 97.9 Intake and Output 12/12/17 12/13/17 19:00 07:00 Intake Total 390 ml Output Total 250 ml Balance 390 ml -250 ml Intake Oral 280 ml IV Total 110 ml Output Urine Total 250 ml # Voids 6 6 # Bowel Movements 3 Laboratory Tests Test 12/12/17 15:35 12/12/17 16:50 12/13/17 05:40 White Blood Count 11.0 K/UL (4.8-10.8) H 8.9 K/UL (4.8-10.8) Red Blood Count 3.51 M/UL (4.70-6.10) L 3.37 M/UL (4.70-6.10) L Hemoglobin 8.9 G/DL (14.2-18.0) L 8.5 G/DL (14.2-18.0) L Hematocrit 27.4 % (42.0-52.0) L 26.1 % (42.0-52.0) L Mean Corpuscular Volume 78 FL (80-99) L 77 FL (80-99) L Mean Corpuscular Hemoglobin 25.4 PG (27.0-31.0) L 25.1 PG (27.0-31.0) L Mean Corpuscular Hemoglobin Concent 32.5 G/DL (32.0-36.0) 32.5 G/DL (32.0-36.0) Red Cell Distribution Width 19.9 % (11.6-14.8) H 20.5 % (11.6-14.8) H Platelet Count 91 K/UL (150-450) L 75 K/UL (150-450) L Mean Platelet Volume 8.6 FL (6.5-10.1) 7.3 FL (6.5-10.1) Neutrophils (%) (Auto) % (45.0-75.0) % (45.0-75.0) Lymphocytes (%) (Auto) % (20.0-45.0) % (20.0-45.0) Monocytes (%) (Auto) % (1.0-10.0) % (1.0-10.0) Eosinophils (%) (Auto) % (0.0-3.0) % (0.0-3.0) Basophils (%) (Auto) % (0.0-2.0) % (0.0-2.0) Differential Total Cells Counted 100 100 Neutrophils % (Manual) 65 % (45-75) 79 % (45-75) H Lymphocytes % (Manual) 23 % (20-45) 10 % (20-45) L Monocytes % (Manual) 9 % (1-10) 6 % (1-10) Eosinophils % (Manual) 2 % (0-3) 0 % (0-3) Basophils % (Manual) 1 % (0-2) 0 % (0-2) Band Neutrophils 0 % (0-8) 5 % (0-8) Platelet Estimate Decreased L Decreased L Platelet Morphology Normal Normal Hypochromasia 2+ 1+ Anisocytosis 2+ 2+ Microcytosis 1+ 1+ Target Cells 1+ Urine Color Brown Urine Appearance Cloudy Urine pH 6.5 (4.5-8.0) Urine Specific [place] 1.010 (1.005-1.035) Urine Protein 2+ (NEGATIVE) H Urine Glucose (UA) Negative (NEGATIVE) Urine Ketones 2+ (NEGATIVE) H Urine Occult Blood 5+ (NEGATIVE) H Urine Nitrite Positive (NEGATIVE) H Urine Bilirubin 3+ (NEGATIVE) H Urine Ictotest Positive Urine Urobilinogen 4 MG/DL (0.0-1.0) H Urine Leukocyte Esterase 2+ (NEGATIVE) H Urine RBC Tntc /HPF (0 - 0) H Urine WBC 20-30 /HPF (0 - 0) H Urine Squamous Epithelial Cells None /LPF (NONE/OCC) Urine Bacteria Moderate /HPF (NONE) H Basophilic Stippling Occasional Sodium Level 132 MMOL/L (136-145) L Potassium Level 4.4 MMOL/L (3.5-5.1) Chloride Level 102 MMOL/L (98-107) Carbon Dioxide Level 25 MMOL/L (21-32) Anion Gap 5 mmol/L (5-15) Blood Urea Nitrogen 10 mg/dL (7-18) Creatinine 0.8 MG/DL (0.55-1.30) Estimat Glomerular Filtration Rate > 60 mL/min (>60) Glucose Level 148 MG/DL (74-106) H Calcium Level 8.4 MG/DL (8.5-10.1) L Total Bilirubin 10.5 MG/DL (0.2-1.0) H Direct Bilirubin 7.4 MG/DL (0.0-0.3) H Aspartate Amino Transf (AST/SGOT) 136 U/L (15-37) H Alanine Aminotransferase (ALT/SGPT) 54 U/L (12-78) Alkaline Phosphatase 143 U/L (46-116) H Ammonia 14 umol/L (11-32) Total Protein 6.6 G/DL (6.4-8.2) Albumin 1.8 G/DL (3.4-5.0) L Globulin 4.8 g/dL Albumin/Globulin Ratio 0.4 (1.0-2.7) L Microbiology Date/Time Source Procedure Growth Status 12/12/17 16:50 Urine,Clean Catch Urine Culture - Preliminary NO GROWTH Resulted Objective HEAD AND NECK: Shows no JVD. LUNGS: Coarse rhonchi. CARDIOVASCULAR: Regular S1 and S2 with no gallop or murmur. ABDOMEN: Soft with ascites. EXTREMITIES: No pitting edema. YAW SCHUSTER Dec 13, 2017 15:00
[2017-12-13 16:00] VITALS: BP 129/82
--- NOTE | 2017-12-13 16:00 | Consultation ---
DATE OF CONSULTATION: 12/13/2017 UROLOGY CONSULTATION CONSULTING PHYSICIAN: Getachew Shin M.D. ADMITTING PHYSICIAN: Heather Gray M.D. REASON FOR CONSULTATION: The patient is a 41-year-old male, admitted with altered mental status, found to have alcoholic cirrhosis of the liver, ascites and anemia. The patient developed gross hematuria and this was in conjunction with a urinary tract infection with bacteria growing E. coli in the culture. The patient currently is urinating without complaints, feels the urine has improved significantly in the last 2 days. The patient does not give history of urologic problems. No history of stones or previous urinary tract infections he is aware of. PAST MEDICAL HISTORY: Significant for hypertension, for anemia, for liver failure cirrhosis, and hypertension. PAST SURGICAL HISTORY: Noncontributory. FAMILY HISTORY: Noncontributory. PHYSICAL EXAMINATION: VITAL SIGNS: Temperature 97.7, pulse of 90, respiratory rate 20, blood pressure 121/80. HEAD AND NECK: No palpable abnormalities. ABDOMEN: Has some distention. BACK: No CVA tenderness. GENITOURINARY: Testicles are bilaterally descended without masses. Penis within normal limits. RECTAL: Prostate has mild enlargement and no nodules or other significant abnormalities. LABORATORY VALUES: White blood cell count 8900, hemoglobin 8.5. Sodium 132, potassium 4.4, BUN of 10, creatinine of 0.8. The urinalysis from 12/10/2017 showed too numerous to count red blood cells. Most recent urine culture was negative. Renal ultrasound, the kidneys were normal. ASSESSMENT: My assessment on the patient is that he is clearly coagulopathic with his liver failure and this made him prone to hematuria with his urinary tract infection. Urinary tract infection is improving and hematuria is improving. Kidneys are normal on ultrasound. RECOMMENDATION: My recommendation is that no further Urology evaluation or treatment is necessary other than him having his urinary tract infection treated. The patient is clearly not at significant risk for gastrointestinal bleeding and other issues with his liver failure and hopefully, the hematuria will continue to improve with current treatment. Whether Hematology may be helpful in order to control his coagulopathy is something to be considered. I will sign off the case at this time and if it appears that any further input would be necessary, please contact me. Getachew Shin DR: Alex JOB#: [id number] CC:
[2017-12-13 20:00] VITALS: BP 131/83
[2017-12-13] MEDS: Iron Sucrose 100 MG in NS 55 ML IV SCH (22:22)
[2017-12-13 23:04] LABS: APPEARANCE,URINE CLEAR; BILIRUBIN, URINE 3+ (NEGATIVE); COLOR,URINE BROWN; GLUCOSE, URINE (UA) 1+ (NEGATIVE); KETONES,URINE 1+ (NEGATIVE); LEUKOCYTE ESTERASE ,URINE 2+ (NEGATIVE); NITRITE,URINE POSITIVE (NEGATIVE); PH,URINE 7 (4.5-8.0); PROTEIN,URINE 2+ (NEGATIVE); UROBILINOGEN,URINE 4 MG/DL (0.0-1.0)
[2017-12-14] VITALS: BP 137/88
[2017-12-14 04:00] VITALS: BP_SYST 129; BP_SYST 161; BP_DIAS 100; BP_DIAS 81
[2017-12-14] MEDS: Meropenem 500 MG in NS 55 ML IVPB SCH (04:33)
[2017-12-14 07:29] LABS: EOSINOPHILS % (AUTO) 0.1 % (0.0-3.0); HEMATOCRIT 27.1 % (42.0-52.0); HEMOGLOBIN 9.1 G/DL (14.2-18.0); LYMPHOCYTES % (AUTO) 25.7 % (20.0-45.0); MEAN CORPUSCULAR VOLUME 78 FL (80-99); MONOCYTES % (AUTO) 11.3 % (1.0-10.0); PLATELET COUNT 108 K/UL (150-450); RED BLOOD COUNT 3.47 M/UL (4.70-6.10); RED CELL DISTRIBUTION WIDTH 20.9 % (11.6-14.8); WHITE BLOOD COUNT 11.8 K/UL (4.8-10.8)
[2017-12-14 07:49] LABS: ALANINE AMINOTRANSFERASE 60 U/L (12-78); ALBUMIN 1.9 G/DL (3.4-5.0); ALBUMIN/GLOBULIN RATIO 0.4 (1.0-2.7); ALKALINE PHOSPHATASE 170 U/L (46-116); ANION GAP 9 mmol/L (5-15); ASPARTATE AMINO TRANSFERASE 123 U/L (15-37); BILIRUBIN,TOTAL 8.3 MG/DL (0.2-1.0); BLOOD UREA NITROGEN 11 mg/dL (7-18); CALCIUM 8.4 MG/DL (8.5-10.1); CARBON DIOXIDE 23 MMOL/L (21-32); CHLORIDE 102 MMOL/L (98-107); CREATININE 0.8 MG/DL (0.55-1.30); POTASSIUM 4.2 MMOL/L (3.5-5.1); SODIUM 133 MMOL/L (136-145)
[2017-12-14 08:15] LABS: BILIRUBIN,DIRECT 5.9 MG/DL (0.0-0.3)
[2017-12-14 08:30] VITALS: BP 134/87
[2017-12-14] MEDS: Lactulose 20gm/30ml UDC ORAL SCH (09:03)
[2017-12-14] MEDS: Multivitamin w/Minerals tab ORAL SCH (09:04)
[2017-12-14] MEDS: Thiamine 100mg tab ORAL SCH (09:04)
[2017-12-14] MEDS ORDERED: Tubing IV Secondary IV ONE (09:59)
[2017-12-14 12:00] VITALS: BP 127/77
--- NOTE | 2017-12-14 12:35 | General Progress Note ---
Assessment/Plan Assessment/Plan 1. Thrombocytopenia, likely secondary to underlying liver cirrhosis --> Continue to closely monitor. --> HIV and Hep panel negative. --> Platelet goal is above 20,000. 2. Anemia due to underlying chronic disease. --> Continue to closely monitor. --> Anemia workup from the past has been reviewed. --> Hemoglobin goal is above 7. 3. Hepatic encephalopathy. Closely monitor with GI Service. --> The patient currently is on lactulose and on prednisone taper as well. 4. Esophageal varices, status post banding x3. 5. Internal and external hemorrhoids. --> Hematuria worsening. --> Monitor closely. 6. Extended-spectrum beta-lactamase Escherichia coli urinary tract infection. --> Currently on meropenem. 7. Altered mental status. Date note entered does not reflect time patient was seen. Subjective Date patient seen: Dec 12, 2017 Constitutional: Denies: no symptoms, chills, diaphoresis, fever, malaise, weakness, other HEENT: Denies: no symptoms, eye pain, blurred vision, tearing, double vision, ear pain, ear discharge, nose pain, nose congestion, throat pain, throat swelling, mouth pain, mouth swelling, other Cardiovascular: Denies: no symptoms, chest pain, edema, irregular heart rate, lightheadedness, palpitations, syncope, other Respiratory: Denies: no symptoms, cough, orthopnea, shortness of breath, SOB with excertion, SOB at rest, sputum, stridor, wheezing, other Gastrointestinal/Abdominal: Denies: no symptoms, abdomen distended, abdominal pain, black stools, tarry stools, blood in stool, constipated, diarrhea, difficulty swallowing, nausea, poor appetite, poor fluid intake, rectal bleeding , vomiting, other Genitourinary: Denies: no symptoms, burning, discharge, frequency, flank pain, hematuria, incontinence, pain, urgency, other Hematologic/Lymphatic: Reports: anemia Allergies: Coded Allergies: No Known Allergies (Unverified , 12/08/17) Subjective Hematuria worsening. On antibiotics. No fever. Objective VS - Last 72 Hours, by Label Date Time Temp Pulse Resp B/P (MAP) Pulse Ox O2 Delivery O2 Flow Rate FiO2 12/14/17 08:30 97.5 83 18 134/87 99 Room Air 97.5 12/14/17 04:00 97.7 81 18 129/81 97 Room Air 97.7 12/14/17 00:00 96.4 89 18 137/88 95 Room Air 96.4 12/13/17 20:00 97.7 83 20 131/83 98 Room Air 97.7 12/13/17 17:14 Room Air 12/13/17 16:00 97.7 90 19 129/82 99 97.7 12/13/17 13:45 Room Air 12/13/17 12:00 97.2 84 19 121/79 96 97.2 12/13/17 08:19 Room Air 12/13/17 08:00 97.7 90 20 121/80 96 97.7 12/13/17 03:31 98.1 88 20 110/69 93 Room Air 98.1 12/13/17 00:00 97.3 85 20 131/81 96 97.3 12/12/17 20:00 97.2 87 21 117/76 92 97.2 12/12/17 16:37 Room Air 12/12/17 16:00 97.9 93 19 132/82 94 97.9 12/12/17 12:05 Room Air 12/12/17 12:00 97.3 82 20 118/81 96 97.3 12/12/17 08:46 Room Air 12/12/17 08:00 97.3 98 20 123/76 96 97.3 12/12/17 03:50 97.7 97 20 105/64 96 Room Air 97.7 12/12/17 01:20 98.1 96 20 104/61 97 Room Air 98.1 12/12/17 00:00 98.1 96 20 104/61 94 Room Air 98.1 12/11/17 19:54 97.9 98 20 121/77 98 Room Air 97.9 12/11/17 15:54 97.9 104 19 115/83 96 97.9 Last 24 Hour Vital Signs Date Time Temp Pulse Resp B/P (MAP) Pulse Ox O2 Delivery O2 Flow Rate FiO2 12/14/17 08:30 97.5 83 18 134/87 99 Room Air 97.5 12/14/17 04:00 97.7 81 18 129/81 97 Room Air 97.7 12/14/17 00:00 96.4 89 18 137/88 95 Room Air 96.4 12/13/17 20:00 97.7 83 20 131/83 98 Room Air 97.7 12/13/17 17:14 Room Air 12/13/17 16:00 97.7 90 19 129/82 99 97.7 12/13/17 13:45 Room Air Intake and Output 12/13/17 12/14/17 19:00 07:00 Intake Total 480 ml 170 ml Output Total 500 ml Balance 480 ml -330 ml Intake Oral 480 ml IV Total 170 ml Output Urine Total 500 ml # Voids 3 3 # Bowel Movements 4 1 Labs Test 12/12/17 04:55 12/12/17 15:35 12/12/17 16:50 12/13/17 05:40 White Blood Count 11.5 K/UL (4.8-10.8) 11.0 K/UL (4.8-10.8) 8.9 K/UL (4.8-10.8) Red Blood Count 3.31 M/UL (4.70-6.10) 3.51 M/UL (4.70-6.10) 3.37 M/UL (4.70-6.10) Hemoglobin 8.6 G/DL (14.2-18.0) 8.9 G/DL (14.2-18.0) 8.5 G/DL (14.2-18.0) Hematocrit 25.6 % (42.0-52.0) 27.4 % (42.0-52.0) 26.1 % (42.0-52.0) Mean Corpuscular Volume 77 FL (80-99) 78 FL (80-99) 77 FL (80-99) Mean Corpuscular Hemoglobin 26.0 PG (27.0-31.0) 25.4 PG (27.0-31.0) 25.1 PG (27.0-31.0) Mean Corpuscular Hemoglobin Concent 33.6 G/DL (32.0-36.0) 32.5 G/DL (32.0-36.0) 32.5 G/DL (32.0-36.0) Red Cell Distribution Width 19.2 % (11.6-14.8) 19.9 % (11.6-14.8) 20.5 % (11.6-14.8) Platelet Count 81 K/UL (150-450) 91 K/UL (150-450) 75 K/UL (150-450) Mean Platelet Volume 8.2 FL (6.5-10.1) 8.6 FL (6.5-10.1) 7.3 FL (6.5-10.1) Neutrophils (%) (Auto) % (45.0-75.0) % (45.0-75.0) % (45.0-75.0) Lymphocytes (%) (Auto) % (20.0-45.0) % (20.0-45.0) % (20.0-45.0) Monocytes (%) (Auto) % (1.0-10.0) % (1.0-10.0) % (1.0-10.0) Eosinophils (%) (Auto) % (0.0-3.0) % (0.0-3.0) % (0.0-3.0) Basophils (%) (Auto) % (0.0-2.0) % (0.0-2.0) % (0.0-2.0) Differential Total Cells Counted 100 100 100 Neutrophils % (Manual) 55 % (45-75) 65 % (45-75) 79 % (45-75) Lymphocytes % (Manual) 29 % (20-45) 23 % (20-45) 10 % (20-45) Monocytes % (Manual) 12 % (1-10) 9 % (1-10) 6 % (1-10) Eosinophils % (Manual) 4 % (0-3) 2 % (0-3) 0 % (0-3) Basophils % (Manual) 0 % (0-2) 1 % (0-2) 0 % (0-2) Band Neutrophils 0 % (0-8) 0 % (0-8) 5 % (0-8) Platelet Estimate Decreased Decreased Decreased Platelet Morphology Normal Normal Normal Hypochromasia 2+ 2+ 1+ Anisocytosis 2+ 2+ 2+ Microcytosis 1+ 1+ 1+ Spherocytes 1+ Sodium Level 133 MMOL/L (136-145) 132 MMOL/L (136-145) Potassium Level 3.9 MMOL/L (3.5-5.1) 4.4 MMOL/L (3.5-5.1) Chloride Level 102 MMOL/L (98-107) 102 MMOL/L (98-107) Carbon Dioxide Level 25 MMOL/L (21-32) 25 MMOL/L (21-32) Anion Gap 7 mmol/L (5-15) 5 mmol/L (5-15) Blood Urea Nitrogen 9 mg/dL (7-18) 10 mg/dL (7-18) Creatinine 0.9 MG/DL (0.55-1.30) 0.8 MG/DL (0.55-1.30) Estimat Glomerular Filtration Rate > 60 mL/min (>60) > 60 mL/min (>60) Glucose Level 122 MG/DL (74-106) 148 MG/DL (74-106) Calcium Level 8.5 MG/DL (8.5-10.1) 8.4 MG/DL (8.5-10.1) Total Bilirubin 8.9 MG/DL (0.2-1.0) 10.5 MG/DL (0.2-1.0) Direct Bilirubin 6.8 MG/DL (0.0-0.3) 7.4 MG/DL (0.0-0.3) Aspartate Amino Transf (AST/SGOT) 119 U/L (15-37) 136 U/L (15-37) Alanine Aminotransferase (ALT/SGPT) 51 U/L (12-78) 54 U/L (12-78) Alkaline Phosphatase 133 U/L (46-116) 143 U/L (46-116) Total Protein 6.5 G/DL (6.4-8.2) 6.6 G/DL (6.4-8.2) Albumin 1.7 G/DL (3.4-5.0) 1.8 G/DL (3.4-5.0) Globulin 4.8 g/dL 4.8 g/dL Albumin/Globulin Ratio 0.4 (1.0-2.7) 0.4 (1.0-2.7) Target Cells 1+ Urine Color Brown Urine Appearance Cloudy Urine pH 6.5 (4.5-8.0) Urine Specific [place] 1.010 (1.005-1.035) Urine Protein 2+ (NEGATIVE) Urine Glucose (UA) Negative (NEGATIVE) Urine Ketones 2+ (NEGATIVE) Urine Occult Blood 5+ (NEGATIVE) Urine Nitrite Positive (NEGATIVE) Urine Bilirubin 3+ (NEGATIVE) Urine Ictotest Positive Urine Urobilinogen 4 MG/DL (0.0-1.0) Urine Leukocyte Esterase 2+ (NEGATIVE) Urine RBC Tntc /HPF (0 - 0) Urine WBC 20-30 /HPF (0 - 0) Urine Squamous Epithelial Cells None /LPF (NONE/OCC) Urine Bacteria Moderate /HPF (NONE) Basophilic Stippling Occasional Ammonia 14 umol/L (11-32) Test 12/13/17 21:15 12/14/17 05:45 Urine Color Brown Urine Appearance Clear Urine pH 7 (4.5-8.0) Urine Specific [place] 1.005 (1.005-1.035) Urine Protein 2+ (NEGATIVE) Urine Glucose (UA) 1+ (NEGATIVE) Urine Ketones 1+ (NEGATIVE) Urine Occult Blood 3+ (NEGATIVE) Urine Nitrite Positive (NEGATIVE) Urine Bilirubin 3+ (NEGATIVE) Urine Ictotest Positive Urine Urobilinogen 4 MG/DL (0.0-1.0) Urine Leukocyte Esterase 2+ (NEGATIVE) Urine RBC 10-15 /HPF (0 - 0) Urine WBC 5-10 /HPF (0 - 0) Urine Squamous Epithelial Cells None /LPF (NONE/OCC) Urine Bacteria Few /HPF (NONE) White Blood Count 11.8 K/UL (4.8-10.8) Red Blood Count 3.47 M/UL (4.70-6.10) Hemoglobin 9.1 G/DL (14.2-18.0) Hematocrit 27.1 % (42.0-52.0) Mean Corpuscular Volume 78 FL (80-99) Mean Corpuscular Hemoglobin 26.3 PG (27.0-31.0) Mean Corpuscular Hemoglobin Concent 33.7 G/DL (32.0-36.0) Red Cell Distribution Width 20.9 % (11.6-14.8) Platelet Count 108 K/UL (150-450) Mean Platelet Volume 7.8 FL (6.5-10.1) Neutrophils (%) (Auto) 62.0 % (45.0-75.0) Lymphocytes (%) (Auto) 25.7 % (20.0-45.0) Monocytes (%) (Auto) 11.3 % (1.0-10.0) Eosinophils (%) (Auto) 0.1 % (0.0-3.0) Basophils (%) (Auto) 1.0 % (0.0-2.0) Sodium Level 133 MMOL/L (136-145) Potassium Level 4.2 MMOL/L (3.5-5.1) Chloride Level 102 MMOL/L (98-107) Carbon Dioxide Level 23 MMOL/L (21-32) Anion Gap 9 mmol/L (5-15) Blood Urea Nitrogen 11 mg/dL (7-18) Creatinine 0.8 MG/DL (0.55-1.30) Estimat Glomerular Filtration Rate > 60 mL/min (>60) Glucose Level 136 MG/DL (74-106) Calcium Level 8.4 MG/DL (8.5-10.1) Total Bilirubin 8.3 MG/DL (0.2-1.0) Direct Bilirubin 5.9 MG/DL (0.0-0.3) Aspartate Amino Transf (AST/SGOT) 123 U/L (15-37) Alanine Aminotransferase (ALT/SGPT) 60 U/L (12-78) Alkaline Phosphatase 170 U/L (46-116) Total Protein 6.9 G/DL (6.4-8.2) Albumin 1.9 G/DL (3.4-5.0) Globulin 5.0 g/dL Albumin/Globulin Ratio 0.4 (1.0-2.7) Laboratory Tests 12/13/17 21:15: Urine Color Brown, Urine Appearance Clear, Urine pH 7, Urine Specific [place] 1.005, Urine Protein 2+H, Urine Glucose (UA) 1+H, Urine Ketones 1+H, Urine Occult Blood 3+H, Urine Nitrite PositiveH, Urine Bilirubin 3+H, Urine Ictotest Positive, Urine Urobilinogen 4H, Urine Leukocyte Esterase 2+H, Urine RBC 10-15H , Urine WBC 5-10H, Urine Squamous Epithelial Cells None, Urine Bacteria Few 12/14/17 05:45: White Blood Count 11.8H, Red Blood Count 3.47L, Hemoglobin 9.1L, Hematocrit 27.1L, Mean Corpuscular Volume 78L, Mean Corpuscular Hemoglobin 26.3L, Mean Corpuscular Hemoglobin Concent 33.7, Red Cell Distribution Width 20.9H, Platelet Count 108L, Mean Platelet Volume 7.8, Neutrophils (%) (Auto) 62.0, Lymphocytes (%) (Auto) 25.7, Monocytes (%) (Auto) 11.3H, Eosinophils (%) (Auto) 0.1, Basophils (%) (Auto) 1.0, Sodium Level 133L, Potassium Level 4.2, Chloride Level 102, Carbon Dioxide Level 23, Anion Gap 9, Blood Urea Nitrogen 11, Creatinine 0.8, Estimat Glomerular Filtration Rate > 60, Glucose Level 136H, Calcium Level 8.4L, Total Bilirubin 8.3H, Direct Bilirubin 5.9H, Aspartate Amino Transf (AST/SGOT) 123H, Alanine Aminotransferase (ALT/SGPT) 60, Alkaline Phosphatase 170H, Total Protein 6.9, Albumin 1.9L, Globulin 5.0, Albumin/ Globulin Ratio 0.4L Height (Feet): 5 Height (Inches): 5.00 Weight (Pounds): 143 General Appearance: confused Respiratory/Chest: decreased breath sounds Edema: trace edema Manolo Law Dec 14, 2017 12:35
--- NOTE | 2017-12-14 12:38 | General Progress Note ---
Assessment/Plan Assessment/Plan #. Anemia due to underlying chronic disease. --> Continue to closely monitor. --> Anemia workup from the past has been reviewed. Iron 81, TIBC 72, Folate 5.3 , B12 >2000 --> Hemoglobin goal is above 7. --> Transfuse if hgb falls below goal or symptomatic. #. Thrombocytopenia, likely secondary to underlying liver cirrhosis --> Continue to closely monitor. --> HIV and Hep panel negative. --> Platelet goal is above 20,000. --> Improving. #. Hepatic encephalopathy. Closely monitor with GI Service. --> The patient currently is on lactulose and on prednisone taper as well. #. Esophageal varices, status post banding x3. #. Internal and external hemorrhoids. --> Hematuria worsening. --> Monitor closely. #. Extended-spectrum beta-lactamase Escherichia coli urinary tract infection. --> Currently on meropenem. #. Altered mental status. Subjective Date patient seen: Dec 13, 2017 Constitutional: Denies: no symptoms, chills, diaphoresis, fever, malaise, weakness, other HEENT: Denies: no symptoms, eye pain, blurred vision, tearing, double vision, ear pain, ear discharge, nose pain, nose congestion, throat pain, throat swelling, mouth pain, mouth swelling, other Cardiovascular: Denies: no symptoms, chest pain, edema, irregular heart rate, lightheadedness, palpitations, syncope, other Respiratory: Denies: no symptoms, cough, orthopnea, shortness of breath, SOB with excertion, SOB at rest, sputum, stridor, wheezing, other Gastrointestinal/Abdominal: Denies: no symptoms, abdomen distended, abdominal pain, black stools, tarry stools, blood in stool, constipated, diarrhea, difficulty swallowing, nausea, poor appetite, poor fluid intake, rectal bleeding , vomiting, other Genitourinary: Denies: no symptoms, burning, discharge, frequency, flank pain, hematuria, incontinence, pain, urgency, other Hematologic/Lymphatic: Reports: anemia Allergies: Coded Allergies: No Known Allergies (Unverified , 12/08/17) Subjective Hematuria. No fever. Platelets improving. NAD. Objective Last 24 Hour Vital Signs Date Time Temp Pulse Resp B/P (MAP) Pulse Ox O2 Delivery O2 Flow Rate FiO2 12/14/17 08:30 97.5 83 18 134/87 99 Room Air 97.5 12/14/17 04:00 97.7 81 18 129/81 97 Room Air 97.7 12/14/17 00:00 96.4 89 18 137/88 95 Room Air 96.4 12/13/17 20:00 97.7 83 20 131/83 98 Room Air 97.7 12/13/17 17:14 Room Air 12/13/17 16:00 97.7 90 19 129/82 99 97.7 12/13/17 13:45 Room Air Intake and Output 12/13/17 12/14/17 19:00 07:00 Intake Total 480 ml 170 ml Output Total 500 ml Balance 480 ml -330 ml Intake Oral 480 ml IV Total 170 ml Output Urine Total 500 ml # Voids 3 3 # Bowel Movements 4 1 Laboratory Tests 12/13/17 21:15: Urine Color Brown, Urine Appearance Clear, Urine pH 7, Urine Specific [place] 1.005, Urine Protein 2+H, Urine Glucose (UA) 1+H, Urine Ketones 1+H, Urine Occult Blood 3+H, Urine Nitrite PositiveH, Urine Bilirubin 3+H, Urine Ictotest Positive, Urine Urobilinogen 4H, Urine Leukocyte Esterase 2+H, Urine RBC 10-15H , Urine WBC 5-10H, Urine Squamous Epithelial Cells None, Urine Bacteria Few 12/14/17 05:45: White Blood Count 11.8H, Red Blood Count 3.47L, Hemoglobin 9.1L, Hematocrit 27.1L, Mean Corpuscular Volume 78L, Mean Corpuscular Hemoglobin 26.3L, Mean Corpuscular Hemoglobin Concent 33.7, Red Cell Distribution Width 20.9H, Platelet Count 108L, Mean Platelet Volume 7.8, Neutrophils (%) (Auto) 62.0, Lymphocytes (%) (Auto) 25.7, Monocytes (%) (Auto) 11.3H, Eosinophils (%) (Auto) 0.1, Basophils (%) (Auto) 1.0, Sodium Level 133L, Potassium Level 4.2, Chloride Level 102, Carbon Dioxide Level 23, Anion Gap 9, Blood Urea Nitrogen 11, Creatinine 0.8, Estimat Glomerular Filtration Rate > 60, Glucose Level 136H, Calcium Level 8.4L, Total Bilirubin 8.3H, Direct Bilirubin 5.9H, Aspartate Amino Transf (AST/SGOT) 123H, Alanine Aminotransferase (ALT/SGPT) 60, Alkaline Phosphatase 170H, Total Protein 6.9, Albumin 1.9L, Globulin 5.0, Albumin/ Globulin Ratio 0.4L Height (Feet): 5 Height (Inches): 5.00 Weight (Pounds): 143 Manolo Law Dec 14, 2017 12:37
--- NOTE | 2017-12-14 23:42 | General Progress Note ---
Assessment/Plan Assessment/Plan #. Anemia due to underlying chronic disease. --> Stable at this time, does not require blood transfusion --> Continue to closely monitor. --> Anemia workup from the past has been reviewed. Iron 81, TIBC 72, Folate 5.3 , B12 >1999 --> Hemoglobin goal is above 7. --> Transfuse if hgb falls below goal or symptomatic. #. Thrombocytopenia, likely secondary to underlying liver cirrhosis --> Continue to closely monitor. --> HIV and Hep panel negative. --> Platelet goal is above 20,000. --> Improving past few days. #. Hepatic encephalopathy. Closely monitor with GI Service. --> The patient currently is on lactulose and on prednisone taper as well. #. Esophageal varices, status post banding x3. #. Internal and external hemorrhoids. --> Hematuria worsening. --> Monitor closely. #. Extended-spectrum beta-lactamase Escherichia coli urinary tract infection. --> Currently on meropenem. #. Altered mental status. Subjective Date patient seen: Dec 14, 2017 Constitutional: Denies: no symptoms, chills, diaphoresis, fever, malaise, weakness, other HEENT: Denies: no symptoms, eye pain, blurred vision, tearing, double vision, ear pain, ear discharge, nose pain, nose congestion, throat pain, throat swelling, mouth pain, mouth swelling, other Cardiovascular: Denies: no symptoms, chest pain, edema, irregular heart rate, lightheadedness, palpitations, syncope, other Respiratory: Denies: no symptoms, cough, orthopnea, shortness of breath, SOB with excertion, SOB at rest, sputum, stridor, wheezing, other Gastrointestinal/Abdominal: Denies: no symptoms, abdomen distended, abdominal pain, black stools, tarry stools, blood in stool, constipated, diarrhea, difficulty swallowing, nausea, poor appetite, poor fluid intake, rectal bleeding , vomiting, other Genitourinary: Denies: no symptoms, burning, discharge, frequency, flank pain, hematuria, incontinence, pain, urgency, other Neurologic/Psychiatric: Denies: no symptoms, anxiety, depressed, emotional problems, headache, numbness, paresthesia, pre-existing deficit, seizure, tingling, tremors, weakness, other Hematologic/Lymphatic: Reports: anemia Allergies: Coded Allergies: No Known Allergies (Unverified , 12/08/17) Subjective H/H stable. No fever or chills. Objective Last 24 Hour Vital Signs Date Time Temp Pulse Resp B/P (MAP) Pulse Ox O2 Delivery O2 Flow Rate FiO2 12/14/17 12:00 97.5 18 127/77 95 Room Air 97.5 12/14/17 08:30 97.5 83 18 134/87 99 Room Air 97.5 12/14/17 04:00 97.7 81 18 129/81 97 Room Air 97.7 12/14/17 00:00 96.4 89 18 137/88 95 Room Air 96.4 Intake and Output 12/13/17 12/14/17 19:00 07:00 Intake Total 480 ml 170 ml Output Total 500 ml Balance 480 ml -330 ml Intake Oral 480 ml IV Total 170 ml Output Urine Total 500 ml # Voids 3 3 # Bowel Movements 4 1 Laboratory Tests 12/14/17 05:45: White Blood Count 11.8H, Red Blood Count 3.47L, Hemoglobin 9.1L, Hematocrit 27.1L, Mean Corpuscular Volume 78L, Mean Corpuscular Hemoglobin 26.3L, Mean Corpuscular Hemoglobin Concent 33.7, Red Cell Distribution Width 20.9H, Platelet Count 108L, Mean Platelet Volume 7.8, Neutrophils (%) (Auto) 62.0, Lymphocytes (%) (Auto) 25.7, Monocytes (%) (Auto) 11.3H, Eosinophils (%) (Auto) 0.1, Basophils (%) (Auto) 1.0, Sodium Level 133L, Potassium Level 4.2, Chloride Level 102, Carbon Dioxide Level 23, Anion Gap 9, Blood Urea Nitrogen 11, Creatinine 0.8, Estimat Glomerular Filtration Rate > 60, Glucose Level 136H, Calcium Level 8.4L, Total Bilirubin 8.3H, Direct Bilirubin 5.9H, Aspartate Amino Transf (AST/SGOT) 123H, Alanine Aminotransferase (ALT/SGPT) 60, Alkaline Phosphatase 170H, Total Protein 6.9, Albumin 1.9L, Globulin 5.0, Albumin/ Globulin Ratio 0.4L Height (Feet): 5 Height (Inches): 5.00 Weight (Pounds): 143 General Appearance: no apparent distress Cardiovascular: normal rate Respiratory/Chest: decreased breath sounds Abdomen: non tender, soft 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
--- NOTE | 2017-12-15 08:14 | Discharge Summary ---
Discharge Summary Hospital Course Date of Admission Dec 08, 2017 at 02:42 Date of Discharge Dec 14, 2017 at 14:04 Admitting Diagnosis ALTERED MENTAL STATUS HPI Twan Javier is a 41 year old male who was admitted on Dec 08, 2017 at 02:42 for Altered Mental Status Consultations Urology, ID, GI, cards Hospital Course Patient was admitted for altered mental status 2/2 acute hepatic encephalopathy , acute alcohol intoxication and UTI. Urine culture grew ESBL and ID consultation was requested. Patient was started on a carbapenam. GI consultation was also requested and patient was started on lactulose and rifaxamin given elevated ammonia levels. Patient's mental status improved. Patient also was noted to have downtrending hemoglobin and stool OB was positive for occult blood. Patient was given a total of 4 units of pRBC. Patient then underwent EgD/colonoscopy and was noted to have esophageal varices , internal and external hemorrhoids, and 1 colonic polyp s/p removal. Patient underwent banding x 3 for esophageal varices. Patient was also started on prednisone 40mg PO qd for alcoholic hepatitis. Patient was also noted to have elevated troponins and cardiology consultation was requested. There were no acute EKG changes. ECHO showed normal EF with no wall motion abnormality. Patient was ruled out for ACS. Patient also underwent s/p paracentesis on w/ 600mL removed. No e/o SBP. Patient was then noted to have hematuria. Urology consultation was requested. No further urologic intervention was recommended as patient is highly coagulopathic due to his liver cirrhosis. Hematuria slowly resolved. Patient was afebrile and hemodynamically stable prior to discharge. Patient was discharged to home with prescriptions and advised to follow up with PMD within 1 week and GI in 4-6 weeks for repeat banding with EgD. Discharge Medications New Medications: Nitrofurantoin Monohyd/M-Cryst* (Macrobid 100 Mg*) 100 Mg Capsule 100 MG ORAL EVERY 12 HOURS for 7 Days, #14 CAP Folic Acid* (Folic Acid*) 1 Mg Tablet 1 MG ORAL DAILY, #30 TAB 6 Refills Lactulose (Lactulose*) 20 Gm/30 Ml Solution 30 GM ORAL BID for 30 Days, #200 ML 3 Refills Multivitamin With Minerals (Multivitamins With Minerals*) 1 Each Tablet 1 EA ORAL DAILY, #30 TAB 6 Refills Prednisone* (Prednisone*) 20 Mg Tablet 40 MG ORAL DAILY for 30 Days, #30 TAB 0 Refills Rifaximin* (Xifaxan*) 550 Mg Tablet 550 MG ORAL EVERY 12 HOURS, #60 TAB 3 Refills Thiamine Hcl (Vitamin B1*) 100 Mg Tablet 100 MG ORAL DAILY, #30 TAB 6 Refills Continued Medications: Atenolol* (Tenormin*) 25 Mg Tablet 25 MG ORAL DAILY, TAB Calcitriol (Calcitriol*) 1 Mcg/1 Ml Ampul 0.25 MCG IV, MCG 0 Refills Levetiracetam* (Levetiracetam*) 100 Mg/1 Ml Solution 750 MG GT BID Pantoprazole* (Pantoprazole*) 40 Mg Tablet.dr 40 MG ORAL DAILY, #30 TAB 2 Refills (This prescription has been renewed) Ursodiol (Nik Forte) 500 Mg Tablet 500 MG PO, TAB Discontinued Medications: Prednisolone* (Prelone*) 15 Mg/5 Ml Solution 15 MG ORAL, ML Discharge Condition Upon Discharge: stable Discharge Disposition Patient was discharged to Home (01) Discharge Diagnoses: (1) Bloody stool (2) Cirrhosis (3) Alcohol abuse with physiological dependence (4) lives at home (5) Anemia of chronic disease (6) Alcoholic cirrhosis (7) Coagulopathy (8) Sepsis (9) Acute hepatic encephalopathy (10) Acute blood loss anemia (11) Colonic polyp (12) Internal and external hemorrhoids without complication (13) Esophgeal varices s/p banding x 3 (14) Acute upper and lower GI bleed (15) Hematuria Discharge Instructions Discharge Instructions Follow up with: primary care doctor within 1 week Call MD/Return to Hospital if: fevers, chest pain, SOB, abd pain, nausea/ vomiting Activity: resume normal activities Floresita Robison N.P. Dec 15, 2017 08:14
== END 2017-12-14 14:04 | disposition home or self-care (01) | DRG 710 ==
LOC: EDBD 01:37 → EMR 02:05 → 2E 02:42 → EDBEDREQ 04:59 → 2E 06:02 → 4W 12-10 18:13
PROC: 0W9G3ZX Drainage of Peritoneal Cavity, Percutaneous Approach, Diagnostic (ICD-10-PCS; principal; 2017-12-08)
PROC: 0DB78ZX Excision of Stomach, Pylorus, Via Natural or Artificial Opening Endoscopic, Diagnostic (ICD-10-PCS; 2017-12-10 11:15)
PROC: 0DBH8ZX Excision of Cecum, Via Natural or Artificial Opening Endoscopic, Diagnostic (ICD-10-PCS; 2017-12-10 11:15)
PROC: 06L38CZ Occlusion of Esophageal Vein with Extraluminal Device, Via Natural or Artificial Opening Endoscopic (ICD-10-PCS; 2017-12-10 11:15)
DX: A41.9 Sepsis, unspecified organism (principal); I85.10 Secondary esophageal varices without bleeding; D68.9 Coagulation defect, unspecified; K76.6 Portal hypertension; D62 Acute posthemorrhagic anemia; K70.31 Alcoholic cirrhosis of liver with ascites; K63.5 Polyp of colon; K70.40 Alcoholic hepatic failure without coma; N39.0 Urinary tract infection, site not specified; F10.229 Alcohol dependence with intoxication, unspecified; B96.20 Unspecified Escherichia coli [E. coli] as the cause of diseases classified elsewhere; R31.9 Hematuria, unspecified; D64.9 Anemia, unspecified; K70.11 Alcoholic hepatitis with ascites; K92.1 Melena; D69.6 Thrombocytopenia, unspecified; K31.89 Other diseases of stomach and duodenum; K64.4 Residual hemorrhoidal skin tags; K64.8 Other hemorrhoids
CPT/HCPCS: 36415; 71045; 76700; 76942; 80048; 80053; 80076; 80307; 81001; 81003; 82140; 82248; 82270; 82306; 82378; 82607; 82728; 82746; 83540; 83550; 83690; 83735; 83880; 84439; 84443; 84484; 85007; 85025; 85044; 85610; 85730; 86705; 86709; 86803; 86850; 86900; 86901; 86920; 87070; 87086; 87181; 87205; 87340; 88104; 89051; 93005; 93306; 94003; 94150; 99285; J2250; J3430; J8499

== ENCOUNTER 2018-04-22 06:57 | Emergency (ER) | payer MEDICAID ==
[~2018-04-22] VITALS: Ht 182.9 cm; Wt 79.4 kg
[~2018-04-22 06:57] MED LIST: ATENOLOL25 MG ORAL; CALCITRIOL1 MCG/1 ML IV; FOLIC ACID1 MG ORAL; LACTULOSE20 GM/301 ORAL; LEVETIRACE100 MG/1 M GT; MULTIVITAMINS1 EAC8 ORAL; NITROFURANTOIN100 M2 ORAL; PANTOPRAZOLE SO40 MG ORAL; PREDNISOLO15 MG/5 M1 ORAL; PREDNISONE20 MG ORAL; THIAMINE HCL100 MG ORAL; URSO FORTE500 MG PO; XIFAXAN550 MG ORAL
[2018-04-22 07:14] VITALS: BP 144/82
[2018-04-22 07:27] VITALS: BP 144/82
--- NOTE | 2018-04-22 07:41 | Emergency Room Report ---
History of Present Illness General Chief Complaint: Nosebleed Source: Patient Present Illness HPI Patient has a history of liver failure secondary to alcohol abuse. Patient was admitted in the past for hepatic encephalopathy. Patient has since stopped drinking. Patient states that he was discharged recently and told to follow up outpatient GI. Patient is currently compliant with medications that he's taking. He developed acute onset of nosebleed out of the right near early this morning and came here for further evaluation. He denies chest pain shortness of breath. The bleeding seems to have stopped. He denies any trauma. No other complaints are noted. Symptoms noted to be moderate when it was occurring and currently is stable. Patient denies any fever abdominal pain chest pain shortness of breath or confusion.No other modifying factors. No other associated signs and symptoms. No other complaints were noted. Allergies: Coded Allergies: No Known Allergies (Unverified , 12/08/17) Patient History Past Medical History: HTN PMH Narrative liver cirrhosis Past Surgical History: none Pertinent Family History: none Social History: Reports: alcohol use - Prior history; Denies: smoking, drug use Reviewed Nursing Documentation: PMH: Agreed; PSxH: Agreed Nursing Documentation-PMH Hx Hypertension: Yes Review of Systems All Other Systems: negative except mentioned in HPI Physical Exam Vital Signs Date Time Temp Pulse Resp B/P (MAP) Pulse Ox O2 Delivery O2 Flow Rate FiO2 04/22/18 07:00 98.3 86 18 144/82 99 Room Air 98.2 Sp02 EP Interpretation: reviewed, normal General Appearance: normal inspection, well appearing, no apparent distress, alert Head: atraumatic Eyes: bilateral eye normal inspection ENT: hearing grossly normal, normal voice, other - Clot in right nare, no active bleeding Neck: normal inspection, full range of motion, supple, no bony tend Respiratory: normal inspection, lungs clear, normal breath sounds, no respiratory distress, no retraction, no wheezing Cardiovascular #1: regular rate, rhythm, no edema Gastrointestinal: normal inspection, normal bowel sounds, non tender, soft, no guarding, no hernia Genitourinary: no CVA tenderness Musculoskeletal: normal inspection, back normal, normal range of motion Neurologic: normal inspection, alert, responsive, speech normal Psychiatric: normal inspection, judgement/insight normal, mood/affect normal Skin: normal inspection, normal color, no rash Medical Decision Making Diagnostic Impression: Primary Impression: Epistaxis ER Course Patient presents emergency department today with episode of epistaxis. Differential considerations include severe coagulopathy, epistaxis stable, anemia. Patient's exam is benign. Epistaxis appears to have stabilized. Given that there has a clot formed in no further bleeding I felt the patient can be monitored as an outpatient.Patient is advised to follow up with primary doctor in 2-3 days and return the emergency room for any worsening symptoms and as needed. Last Vital Signs Date Time Temp Pulse Resp B/P (MAP) Pulse Ox O2 Delivery O2 Flow Rate FiO2 04/22/18 07:27 98.2 78 18 144/82 99 Room Air 98.2 Status: improved Disposition: HOME, SELF-CARE Condition: Stable Patient Instructions: Nosebleed, [id number] Charan Bowens MD Apr 22, 2018 07:41
== END 2018-04-22 07:27 | disposition home or self-care (01) ==
LOC: EMR 07:15
DX: R04.0 Epistaxis (principal); I10 Essential (primary) hypertension
CPT/HCPCS: 99282

== ENCOUNTER 2018-09-15 00:20 | Inpatient (IN) | payer MEDICAID, OTHER ==
[~2018-09-15] VITALS: Ht 165.1 cm; Wt 71.3 kg
[2018-09-15] VITALS (22 sets, daily range): BP systolic 87–139; BP diastolic 33–81
--- NOTE | 2018-09-15 00:35 | Emergency Room Report ---
History of Present Illness General Chief Complaint: General Complaint Source: Patient, Medical Record, EMS Present Illness HPI This a 42-year-old male with a history of alcoholic cirrhosis. He said he stopped drinking for several months now. He presents with general eyes weakness and decreased appetite and altered mental status. Onset for last few days. History is limited in this patient because of his confusion. History is through EMS. Family called 911. So far no family member here to get a history. When I called, it went straight to [facility]. EMS said that patient is not taking any medication. Supposedly he has a history of diabetes and is not taking any medication for 4 months. Patient is confused. No fever chills but no nausea no vomiting. No chest pain. Nothing made it better. Nothing made it worse. Allergies: Coded Allergies: No Known Allergies (Unverified , 12/08/17) Patient History Past Medical History: see triage record, old chart reviewed, other - Alcoholic cirrhosis Past Surgical History: other Pertinent Family History: none Social History: Denies: alcohol use - History of Immunizations: other Reviewed Nursing Documentation: PMH: Agreed; PSxH: Agreed Nursing Documentation-PMH Past Medical History: No History, Except For Hx Hypertension: Yes Hx Diabetes: Yes Review of Systems Constitutional: Reports: fever, malaise, weakness Eye: Denies: eye pain, blurred vision ENT: Denies: ear pain, nose congestion, throat swelling Respiratory: Denies: cough, shortness of breath Cardiovascular: Denies: chest pain, palpitations Gastrointestinal: Denies: abdominal pain, diarrhea, nausea, vomiting Musculoskeletal: Denies: back pain, joint pain Skin: Denies: rash Neurological: Denies: headache, numbness Endocrine: Denies: increased thirst, increased urine Hematologic/Lymphatic: Denies: easy bruising All Other Systems: negative except mentioned in HPI Physical Exam Vital Signs Date Time Temp Pulse Resp B/P (MAP) Pulse Ox O2 Delivery O2 Flow Rate FiO2 09/15/18 00:13 99.7 104 20 140/82 99 Room Air vitals with a low-grade temperature Sp02 EP Interpretation: reviewed, normal General Appearance: no apparent distress, alert, cachetic, Chronically Ill Head: normocephalic, atraumatic Eyes: bilateral eye PERRL, bilateral eye EOMI, bilateral eye scleral icterus ENT: hearing grossly normal, normal pharynx Neck: full range of motion, supple, no meningismus Respiratory: chest non-tender, lungs clear, normal breath sounds Cardiovascular #1: regular rate, rhythm, no murmur Gastrointestinal: normal bowel sounds, non tender, no mass, no organomegaly, no bruit, non-distended Musculoskeletal: back normal, normal range of motion Neurologic: alert Psychiatric: depressed affect Skin: warm/dry, jaundice Procedures Critical Care Time Critical Care Time Critical care is mandated in this patient who presented with DKA. Patient require my urgent intervention to attenuate the risks of metabolic collapse which may lead to cardiovascular collapse and . Critical care time is 35 minutes excluding any reportable procedure. Critical care time included evaluation, multiple reevaluation, looking at old charts, interpreting laboratory and diagnostic data, discussing case with patient and family and consultants, and charting. Medical Decision Making Diagnostic Impression: Primary Impression: DKA (diabetic ketoacidosis) Qualified Codes: E13.10 - Other specified diabetes mellitus with ketoacidosis without coma Additional Impressions: Acute hepatic encephalopathy Urinary tract infection due to extended-spectrum beta lactamase (ESBL) producing Escherichia coli Alcoholic cirrhosis of liver Qualified Codes: K70.30 - Alcoholic cirrhosis of liver without ascites Anemia of chronic disease Proteinuria Qualified Codes: R80.9 - Proteinuria, unspecified ER Course Patient with DKA. Questionable new onset versus known disease with noncompliance with medication. Patient was here in November and no evidence of diabetes. History is limited on this patient because of his encephalopathy. He 's not a very good historian. EMS said no meds for 4 months. I tried calling family but no one picked up. Voicemail left. He does have ESBL Escherichia coli infection in the past. Sensitive to imipenem. I order Invanz here. Patient placed on insulin drip. Lactulose given for encephalopathy. Will admit to ICU. Patient will be admitted to service of Dr. Ca. Lab Results Impression labs with DKA EKG Diagnostic Results Rate: normal Rhythm: NSR ST Segments: other - NSST changes Rhythm Strip Diag. Results Rhythm Strip Time: 02:05 EP Interpretation: yes Rate: 100 Rhythm: NSR, no PVC's, no ectopy Chest X-Ray Diagnostic Results Chest X-Ray Diagnostic Results : Chest X-Ray Ordered: Yes # of Views/Limited/Complete: 1 View Indication: Shortness of Breath EP Interpretation: Yes Interpretation: no consolidation, no effusion, no pneumothorax, no acute cardiopulmonary disease Impression: No acute disease Electronically Signed by: Kevin Paredes MD Last Vital Signs Date Time Temp Pulse Resp B/P (MAP) Pulse Ox O2 Delivery O2 Flow Rate FiO2 09/15/18 00:13 99.7 104 20 140/82 99 Room Air Status: improved Disposition: ADMITTED INPATIENT Condition: Critical Kevin Paredes MD Sep 15, 2018 00:35
[2018-09-15 00:54] LABS: HEMATOCRIT 30.9 % (42.0-52.0); HEMOGLOBIN 9.8 G/DL (14.2-18.0); MEAN CORPUSCULAR VOLUME 82 FL (80-99); PLATELET COUNT 79 K/UL (150-450); RED BLOOD COUNT 3.79 M/UL (4.70-6.10); RED CELL DISTRIBUTION WIDTH 17.6 % (11.6-14.8); WHITE BLOOD COUNT 15.1 K/UL (4.8-10.8)
[2018-09-15 01:03] LABS: INR 1.2 (0.9-1.1)
[2018-09-15 01:12] LABS: APPEARANCE,URINE CLEAR; BILIRUBIN, URINE NEGATIVE (NEGATIVE); COLOR,URINE YELLOW; GLUCOSE, URINE (UA) 4+ (NEGATIVE); KETONES,URINE 4+ (NEGATIVE); LEUKOCYTE ESTERASE ,URINE NEGATIVE (NEGATIVE); NITRITE,URINE POSITIVE (NEGATIVE); PH,URINE 6 (4.5-8.0); PROTEIN,URINE 1+ (NEGATIVE); UROBILINOGEN,URINE 1 MG/DL (0.0-1.0)
[2018-09-15] MEDS ORDERED: Lactulose 20gm/30ml UDC ORAL ONE (01:15)
[2018-09-15 01:17] LABS: ALANINE AMINOTRANSFERASE 66 U/L (12-78); ALBUMIN 2.9 G/DL (3.4-5.0); ALBUMIN/GLOBULIN RATIO 0.5 (1.0-2.7); ALKALINE PHOSPHATASE 73 U/L (46-116); ASPARTATE AMINO TRANSFERASE 42 U/L (15-37); BILIRUBIN,TOTAL 6.2 MG/DL (0.2-1.0); BLOOD UREA NITROGEN 11 mg/dL (7-18); CALCIUM 9.3 MG/DL (8.5-10.1); CHLORIDE 98 MMOL/L (98-107); CREATININE 1.4 MG/DL (0.55-1.30); SODIUM 136 MMOL/L (136-145)
[2018-09-15 01:28] LABS: BILIRUBIN,DIRECT 3.8 MG/DL (0.0-0.3)
[2018-09-15 01:29] LABS: CARBON DIOXIDE < 5 MMOL/L (21-32)
[2018-09-15] MEDS ORDERED: Insulin Human Regular 100units/ml 3ml IV ONE (01:30)
[2018-09-15] MEDS ORDERED: Ertapenem 1 GM in NS 55 ML IV ONE (01:30)
[2018-09-15] MEDS ORDERED: Insulin Human Regular 100units/ml 3ml ONE (02:05)
[2018-09-15] MEDS: Insulin Human Regular 100units/ml 3ml IV PRN ×8 (05:11→23:29)
[2018-09-15] MEDS: Insulin Rate Change 1 Each MISC PRN ×10 (06:00→17:58)
[2018-09-15 07:21] LABS: HEMATOCRIT 29.6 % (42.0-52.0); HEMOGLOBIN 9.5 G/DL (14.2-18.0); MEAN CORPUSCULAR VOLUME 81 FL (80-99); PLATELET COUNT 70 K/UL (150-450); RED BLOOD COUNT 3.65 M/UL (4.70-6.10); RED CELL DISTRIBUTION WIDTH 17.8 % (11.6-14.8); WHITE BLOOD COUNT 12.1 K/UL (4.8-10.8)
[2018-09-15 07:32] LABS: ALANINE AMINOTRANSFERASE 53 U/L (12-78); ALBUMIN 2.5 G/DL (3.4-5.0); ALBUMIN/GLOBULIN RATIO 0.5 (1.0-2.7); ALKALINE PHOSPHATASE 62 U/L (46-116); ANION GAP 24 mmol/L (5-15); ASPARTATE AMINO TRANSFERASE 25 U/L (15-37); BILIRUBIN,TOTAL 5.2 MG/DL (0.2-1.0); BLOOD UREA NITROGEN 9 mg/dL (7-18); CALCIUM 9.3 MG/DL (8.5-10.1); CARBON DIOXIDE 12 MMOL/L (21-32); CHLORIDE 111 MMOL/L (98-107); CREATININE 1.3 MG/DL (0.55-1.30); SODIUM 147 MMOL/L (136-145)
[2018-09-15 07:34] LABS: POTASSIUM 2.2 MMOL/L (3.5-5.1)
[2018-09-15 07:36] LABS: BILIRUBIN,DIRECT 3.2 MG/DL (0.0-0.3)
[2018-09-15] MEDS: Pantoprazole Inj IVP SCH (08:16)
[2018-09-15 13:29] LABS: PHOSPHORUS 0.7 MG/DL (2.5-4.9)
[2018-09-15 13:31] LABS: POTASSIUM 2.5 MMOL/L (3.5-5.1)
[2018-09-15 14:23] LABS: ANION GAP 18 mmol/L (5-15); BLOOD UREA NITROGEN 8 mg/dL (7-18); CALCIUM 8.6 MG/DL (8.5-10.1); CARBON DIOXIDE 17 MMOL/L (21-32); CHLORIDE 111 MMOL/L (98-107); CREATININE 1.1 MG/DL (0.55-1.30); SODIUM 146 MMOL/L (136-145)
[2018-09-15 14:25] LABS: POTASSIUM 2.2 MMOL/L (3.5-5.1)
--- NOTE | 2018-09-15 15:27 | Diagnostic Imaging Report ---
Indication: Altered mental status Technique: One view of the chest Comparison: 12/08/2017 Findings: Lungs and pleural spaces are clear. Heart size is normal. Better inspiration currently. No other significant interim change Impression: No acute process
--- NOTE | 2018-09-15 15:30 | Consultation ---
DATE OF CONSULTATION: 09/15/2018 CONSULTING PHYSICIAN: Mau Malone M.D. REFERRING PHYSICIAN: Juan Carlos Ca M.D. REASON FOR CONSULTATION: 1. Acute kidney injury. 2. Metabolic acidosis. 3. Hypokalemia. HISTORY OF PRESENT ILLNESS: The patient is a 42-year-old gentleman with known alcoholic cirrhosis who was admitted overnight for evaluation and care of DKA, elevated sugar when it was noted that the patient had abnormal electrolytes with potassium currently 2.2, creatinine has improved from 1.4 to 1.3. He denies any nausea, vomiting, diarrhea, or chest pain. No shortness of breath. ALLERGIES: No known drug allergies. PAST MEDICAL HISTORY: 1. Diabetes. 2. Alcoholic cirrhosis. SOCIAL HISTORY: Alcohol. No tobacco or illicit drug use. FAMILY HISTORY: Noncontributory. REVIEW OF SYSTEMS: NEUROLOGIC: The patient denies headache, change in vision, syncope, presyncopal episodes. CARDIOVASCULAR: No current chest pain, palpitations, angina. PULMONARY: No difficulty breathing, productive cough, sputum. GASTROINTESTINAL/GENITOURINARY: No nausea, vomiting, diarrhea. ENDOCRINOLOGY: No night sweats, fevers, or chills. PHYSICAL EXAMINATION: VITAL SIGNS: Blood pressure 122/71, respiratory rate 19, pulse 147, temperature 100.6, 100% oxygen saturation room air. GENERAL: The patient awake and alert, not in distress. HEENT: Extraocular muscles intact. No lymphadenopathy. Oropharyngeal mucosa clear and dry. CARDIOVASCULAR: S1 and S2. No rubs or gallops. Tachycardic. PULMONARY: Clear to auscultation bilaterally. No rales, rhonchi, or wheezes. ABDOMEN: Nondistended and nontender. No edema noted. EXTREMITIES: No edema noted. LABORATORY AND DIAGNOSTIC DATA: Labs dated September 15, 2018, sodium 147, potassium 2.2, creatinine 1.3, serum bicarb 12, calcium 9.3. Hemoglobin 9.5, white cell count 12.1, and platelet count 70. ASSESSMENT AND PLAN: 1. Acute kidney injury. At this time, it is likely secondary to volume depletion due to elevated serum glucose. Continue IV fluids. Creatinine has improved to 1.3. We will defer on any further renal investigations as renal function is improving with IV fluids and correction of hyperglycemia. 2. Metabolic acidosis, anion gap secondary to diabetic ketoacidosis. Continue insulin therapy with IV fluids. Gap is closing. 3. Electrolyte abnormalities consisting of potassium. We will replace and check magnesium and phosphorus. 4. Diabetic ketoacidosis. Defer to Dr. Ca, the intensive care unit. Let me take this opportunity to thank, Dr. Ca. Mau Malone MD DR: Elver JOB#: [id number] CC: JENNIFER
[2018-09-15] MEDS ORDERED: Potassium Phosphate 30 MM in NS 275 ML IV SCH (17:00)
[2018-09-15] MEDS: Lactulose 20gm/30ml UDC ORAL SCH ×2 (17:27→21:35)
--- NOTE | 2018-09-15 19:15 | History and Physical Report ---
DATE OF ADMISSION: 09/15/2018 HISTORY OF PRESENT ILLNESS: The patient is a 42-year-old male with history of alcoholic liver cirrhosis as well as insulin-dependent diabetes mellitus. He came to the hospital with altered mental status, decreased appetite. He also had nausea. The patient was confused. In the ER, the patient was found to have significant hyperglycemia with evidence of diabetic ketoacidosis, discharged on insulin drip. The patient reports he has not been taking medications for several months. PAST MEDICAL HISTORY: diabetes mellitus insulin-dependent, alcoholic liver cirrhosis. HOME MEDICATIONS: Include NPH as well as regular insulin. PAST SURGICAL HISTORY: None reported. REVIEW OF SYSTEMS: Denies any headaches, hematemesis, melena, or hematochezia. PHYSICAL EXAMINATION: GENERAL: Reveals a 42-year-old male. VITAL SIGNS: Blood pressure 140/80, heart rate 102, respirations 20. He is afebrile. HEENT: Unremarkable. LUNGS: Clear breath sounds bilaterally. ABDOMEN: Soft. NEUROLOGIC: Nonfocal. LABORATORY AND DIAGNOSTIC DATA: Lab testing shows white count 15,000 now 12.1, hemoglobin 9.5, platelet count 70,000. Potassium 2.2 now 2.5, sodium 147, creatinine 1.3, glucose was 237 with anion gap of 24, bicarb of 12. ABG was not done. Coags show INR 1.2. Urinalysis shows few wbc's. IMAGING STUDIES: X-ray of the chest was done previously which was negative. IMPRESSION: 1. Diabetic ketoacidosis. 2. Alcoholic liver cirrhosis. DISCUSSION: Admit to the hospital. Keep in intensive care unit. We will start insulin drip. for pain. Protonix to be given. Replace potassium. I will consult Endocrinology. We will reorder lactulose. We will follow carefully. Juan Carlos Ca M.D. DR: Amado JOB#: [id number] CC:
[2018-09-16] VITALS (24 sets, daily range): BP systolic 91–137; BP diastolic 42–86
--- NOTE | 2018-09-16 02:00 | Consultation ---
DATE OF CONSULTATION: 09/15/2018 NOTE: UNCLEAR AUDIO CONSULTING PHYSICIAN: Aaron Salvador M.D. REFERRING PHYSICIAN: Dr Juan Carlos Ca REASON FOR CONSULTATION: Diabetic ketoacidosis. HISTORY OF PRESENT ILLNESS: The patient is a 42-year-old male with history of alcoholic cirrhosis, diabetes presented to the hospital with diabetic ketoacidosis, admitted to the intensive care unit and started on insulin drip. Endocrinology was consulted and assisted in management of diabetes. PAST MEDICAL HISTORY: 1. Diabetes. 2. Alcoholic cirrhosis. MEDICATIONS: Prior to admission, reviewed and reconciled. ALLERGIES TO MEDICATION: None. SOCIAL HISTORY: No smoking, alcohol, or drug use. FAMILY HISTORY: Negative for diabetes. REVIEW OF SYSTEMS: As per history of present illness. LABORATORY VALUES: Sodium 146, potassium 3.2, chloride 111, bicarb 17, BUN 8, creatinine 1.1, glucose of 137. PHYSICAL EXAMINATION: GENERAL: The patient is awake. VITAL SIGNS: Blood pressure is 101/54, pulse of 132, temperature 99.1, respiratory rate of 18. HEENT: Pupils are equal and reactive to light. Sclerae anicteric. NECK: No JVD. HEART: Regular. LUNGS: Clear. ABDOMEN: Positive bowel sounds. Soft. EXTREMITIES: No clubbing or cyanosis. Positive for edema. DIAGNOSES: 1. Pancreatitis. 2. Metabolic acidosis. 3. Diabetic ketoacidosis. PLAN: 1. Continue insulin drip protocol. 2. Monitor electrolytes and replete accordingly potassium, phosphorus, and magnesium. 3. Blood glucose monitoring every hour. 4. Clear liquid diet. 5. Hopefully by tomorrow the gap is closed and we can switch to subcutaneous insulin therapy. The patient to stay on insulin injection once every six hours. Aaron Salvador M.D. DR: Shruthi JOB#: [id number] CC: JENNIFER
[2018-09-16 05:10] LABS: HEMATOCRIT 24.9 % (42.0-52.0); MEAN CORPUSCULAR VOLUME 80 FL (80-99); PLATELET COUNT 50 K/UL (150-450); RED CELL DISTRIBUTION WIDTH 17.7 % (11.6-14.8); WHITE BLOOD COUNT 8.4 K/UL (4.8-10.8)
[2018-09-16 05:22] LABS: ANION GAP 17 mmol/L (5-15); BLOOD UREA NITROGEN 7 mg/dL (7-18); CARBON DIOXIDE 14 MMOL/L (21-32); CHLORIDE 110 MMOL/L (98-107); CREATININE 0.9 MG/DL (0.55-1.30); SODIUM 142 MMOL/L (136-145)
[2018-09-16 06:15] LABS: POTASSIUM 2.5 MMOL/L (3.5-5.1)
[2018-09-16] MEDS: Lactulose 20gm/30ml UDC ORAL SCH ×4 (08:29→21:27)
[2018-09-16] MEDS: Pantoprazole Inj IVP SCH (08:29)
--- NOTE | 2018-09-16 08:45 | Nephrology Progress Note ---
Assessment/Plan Assessment/Plan A/P 1) [place]- resolved 2) E- ABN - replacing K+/Mg and phos 3) Dehydration- due to DKA- resolved 4) DKA- resolved 5) Left groin swelling- US, defer to PCP Subjective Date patient seen: Sep 16, 2018 Time patient seen: 08:43 ROS Limited/Unobtainable: No Allergies: Coded Allergies: No Known Allergies (Unverified , 12/08/17) All Systems: reviewed and negative except above Subjective Patient c/o left groin swelling Objective Last 24 Hour Vital Signs Date Time Temp Pulse Resp B/P (MAP) Pulse Ox O2 Delivery O2 Flow Rate FiO2 09/16/18 08:00 99.6 09/16/18 07:00 100.6 94 20 120/74 (89) 09/16/18 06:00 92 20 134/75 (94) 100 09/16/18 05:00 85 20 133/83 (100) 100 09/16/18 04:00 98.8 92 15 133/83 (100) 100 09/16/18 04:00 Room Air 09/16/18 04:00 87 09/16/18 03:00 90 20 125/68 (87) 100 09/16/18 02:00 92 20 116/56 (76) 100 09/16/18 01:00 99.2 90 18 105/42 (63) 100 09/16/18 00:00 91 18 114/69 (84) 100 09/16/18 00:00 Room Air 09/16/18 00:00 90 09/15/18 23:00 100.9 90 18 97/65 (76) 100 09/15/18 22:00 98 20 139/69 (92) 100 09/15/18 21:20 102.4 94 20 139/69 (92) 100 09/15/18 21:15 98 20 139/69 (92) 100 09/15/18 20:21 Room Air 09/15/18 20:20 95 09/15/18 20:00 100.0 95 20 123/63 (83) 100 09/15/18 19:00 101 16 125/67 (86) 100 09/15/18 18:00 87 13 101/54 (70) 100 09/15/18 17:00 133 15 118/69 (85) 09/15/18 16:00 121 11/27/18 16:00 Room Air 09/15/18 16:00 99.1 137 16 112/63 (79) 100 09/15/18 15:00 115 19 92/33 (52) 100 09/15/18 14:00 117 18 87/53 (64) 100 09/15/18 13:00 140 18 102/45 (64) 100 09/15/18 12:00 Room Air 09/15/18 12:00 119 09/15/18 12:00 101.0 116 20 109/59 (76) 100 09/15/18 11:00 170 23 136/52 (80) 09/15/18 10:00 147 19 122/71 (88) 09/15/18 09:00 101 21 118/60 (79) 100 Intake and Output 09/15/18 09/16/18 18:59 06:59 Intake Total 2208.0 ml 1572.08 ml Output Total 500 ml 900 ml Balance 1708.0 ml 672.08 ml Intake Oral 1240 ml IV Total 1708.0 ml 332.08 ml Other 500 ml Output Urine Total 500 ml 900 ml # Bowel Movements 2 Laboratory Tests 09/15/18 12:50: Potassium Level 2.5*L, Phosphorus Level 0.7*L, Magnesium Level 1.6L 09/15/18 13:50: Potassium Level 2.2*L, Sodium Level 146H, Chloride Level 111H, Carbon Dioxide Level 17L, Anion Gap 18H, Blood Urea Nitrogen 8, Creatinine 1.1, Estimat Glomerular Filtration Rate > 60, Glucose Level 137#H, Calcium Level 8.6 09/16/18 04:20: Potassium Level 2.5*L, Sodium Level 142, Chloride Level 110H, Carbon Dioxide Level 14L, Anion Gap 17H, Blood Urea Nitrogen 7, Creatinine 0.9, Estimat Glomerular Filtration Rate > 60, Glucose Level 156H, Calcium Level 8.0L, White Blood Count 8.4, Red Blood Count 3.10L, Hemoglobin 8.0L, Hematocrit 24.9L, Mean Corpuscular Volume 80, Mean Corpuscular Hemoglobin 25.7L, Mean Corpuscular Hemoglobin Concent 31.9L, Red Cell Distribution Width 17.7H, Platelet Count 50L , Mean Platelet Volume 9.9, Neutrophils (%) (Auto) , Lymphocytes (%) (Auto) , Monocytes (%) (Auto) , Eosinophils (%) (Auto) , Basophils (%) (Auto) , Differential Total Cells Counted 100, Neutrophils % (Manual) 84H, Lymphocytes % (Manual) 8L, Monocytes % (Manual) 7, Eosinophils % (Manual) 0, Basophils % ( Manual) 0, Band Neutrophils 1, Platelet Estimate DecreasedL, Platelet Morphology Normal, Anisocytosis 1+, Target Cells 2+, Tear Drop Cells 1+, Schistocytes 1+, Ammonia 51H Height (Feet): 5 Height (Inches): 5.00 Weight (Pounds): 135 General Appearance: no apparent distress, alert EENT: normal ENT inspection Neck: normal alignment, supple Cardiovascular: normal rate, regular rhythm Respiratory/Chest: lungs clear, normal breath sounds Abdomen: non tender, soft Edema: no edema noted Arm (L), no edema noted Arm (R), no edema noted Leg (L), no edema noted Leg (R), no edema noted Pedal (L), no edema noted Pedal (R), no edema noted Generalized Mau Malone MD Sep 16, 2018 08:45
[2018-09-16] MEDS: Insulin Rate Change 1 Each MISC PRN ×6 (09:28→19:10)
--- NOTE | 2018-09-16 10:23 | Diagnostic Imaging Report ---
APPROVED REPORT CPT Code: 61852 Present Symptoms Comments: Screening Pain BILATERAL: Imaging reveals a patent deep venous system bilaterally. There is no evidence of thrombus within the femoral, popliteal or tibial segments. The greater saphenous veins are also within normal limits. Doppler indicates normal spontaneous flow within these segments.
[2018-09-16 10:50] LABS: APPEARANCE,URINE CLEAR; BILIRUBIN, URINE 1+ (NEGATIVE); COLOR,URINE BROWN; GLUCOSE, URINE (UA) NEGATIVE (NEGATIVE); KETONES,URINE 3+ (NEGATIVE); LEUKOCYTE ESTERASE ,URINE 1+ (NEGATIVE); NITRITE,URINE NEGATIVE (NEGATIVE); PH,URINE 6 (4.5-8.0); PROTEIN,URINE 2+ (NEGATIVE); UROBILINOGEN,URINE 4 MG/DL (0.0-1.0)
[2018-09-16 13:37] LABS: PHOSPHORUS 1.3 MG/DL (2.5-4.9)
[2018-09-16 13:47] LABS: POTASSIUM 2.7 MMOL/L (3.5-5.1)
[2018-09-16] MEDS: Piperacillin/Tazobactam 3.375 GM in D5W 110 ML IVPB SCH ×2 (14:37→21:55)
--- NOTE | 2018-09-16 15:51 | Pulmonology Progress Note ---
Assessment/Plan Assessment/Plan IMPRESSION: 1. Diabetic ketoacidosis. 2. Alcoholic liver cirrhosis. DISCUSSION: Admitted to the hospital. Keep in intensive care unit. continue start insulin drip. Protonix to be given. Replace potassium. seen by Endocrinology. I will reorder lactulose. I will consult gastroenterology Subjective Interval Events: looking and feeling better; still on insulin drip Constitutional: Reports: no symptoms HEENT: Repors: no symptoms Respiratory: Reports: no symptoms Cardiovascular: Reports: no symptoms Gastrointestinal/Abdominal: Reports: no symptoms Genitourinary: Reports: no symptoms Allergies: Coded Allergies: No Known Allergies (Unverified , 12/08/17) Objective Last 24 Hour Vital Signs Date Time Temp Pulse Resp B/P (MAP) Pulse Ox O2 Delivery O2 Flow Rate FiO2 09/16/18 15:00 84 19 137/59 (85) 100 09/16/18 14:00 84 19 110/77 (88) 100 09/16/18 13:00 88 19 126/86 (99) 100 09/16/18 12:00 Room Air 09/16/18 12:00 98.7 90 20 103/64 (77) 100 09/16/18 12:00 79 09/16/18 11:00 87 19 115/72 (86) 100 09/16/18 10:00 85 20 123/79 (94) 100 09/16/18 09:00 99 20 121/71 (88) 09/16/18 08:00 99.6 102 20 128/70 (89) 09/16/18 08:00 96 09/16/18 08:00 99.6 09/16/18 08:00 Room Air 09/16/18 07:00 100.6 94 20 120/74 (89) 09/16/18 06:00 92 20 134/75 (94) 100 09/16/18 05:00 85 20 133/83 (100) 100 09/16/18 04:00 98.8 92 15 133/83 (100) 100 09/16/18 04:00 Room Air 09/16/18 04:00 87 09/16/18 03:00 90 20 125/68 (87) 100 09/16/18 02:00 92 20 116/56 (76) 100 09/16/18 01:00 99.2 90 18 105/42 (63) 100 09/16/18 00:00 91 18 114/69 (84) 100 09/16/18 00:00 Room Air 09/16/18 00:00 90 09/15/18 23:00 100.9 90 18 97/65 (76) 100 09/15/18 22:00 98 20 139/69 (92) 100 09/15/18 21:20 102.4 94 20 139/69 (92) 100 09/15/18 21:15 98 20 139/69 (92) 100 09/15/18 20:21 Room Air 09/15/18 20:20 95 09/15/18 20:00 100.0 95 20 123/63 (83) 100 09/15/18 19:00 101 16 125/67 (86) 100 09/15/18 18:00 87 13 101/54 (70) 100 09/15/18 17:00 133 15 118/69 (85) 09/15/18 16:00 121 09/15/18 16:00 Room Air 09/15/18 16:00 99.1 137 16 112/63 (79) 100 Intake and Output 09/15/18 09/16/18 19:00 07:00 Intake Total 2208.0 ml 1676.12 ml Output Total 500 ml 900 ml Balance 1708.0 ml 776.12 ml Intake Oral 1240 ml IV Total 1708.0 ml 436.12 ml Other 500 ml Output Urine Total 500 ml 900 ml # Bowel Movements 2 General Appearance: no acute distress HEENT: normocephalic Respiratory/Chest: chest wall non-tender, lungs clear Cardiovascular: normal peripheral pulses, normal rate Abdomen: normal bowel sounds, soft, non tender Microbiology Date/Time Source Procedure Growth Status 09/15/18 01:00 Urine,Clean Catch Urine Culture - Preliminary Gram Negative Bacillus 1 Resulted Laboratory Tests 09/16/18 04:20: White Blood Count 8.4, Red Blood Count 3.10L, Hemoglobin 8.0L, Hematocrit 24.9L , Mean Corpuscular Volume 80, Mean Corpuscular Hemoglobin 25.7L, Mean Corpuscular Hemoglobin Concent 31.9L, Red Cell Distribution Width 17.7H, Platelet Count 50L, Mean Platelet Volume 9.9, Neutrophils (%) (Auto) , Lymphocytes (%) (Auto) , Monocytes (%) (Auto) , Eosinophils (%) (Auto) , Basophils (%) (Auto) , Differential Total Cells Counted 100, Neutrophils % ( Manual) 84H, Lymphocytes % (Manual) 8L, Monocytes % (Manual) 7, Eosinophils % ( Manual) 0, Basophils % (Manual) 0, Band Neutrophils 1, Platelet Estimate DecreasedL, Platelet Morphology Normal, Anisocytosis 1+, Target Cells 2+, Tear Drop Cells 1+, Schistocytes 1+, Sodium Level 142, Potassium Level 2.5*L, Chloride Level 110H, Carbon Dioxide Level 14L, Anion Gap 17H, Blood Urea Nitrogen 7, Creatinine 0.9, Estimat Glomerular Filtration Rate > 60, Glucose Level 156H, Calcium Level 8.0L, Ammonia 51H 09/16/18 10:10: Urine Color Brown, Urine Appearance Clear, Urine pH 6, Urine Specific [place] 1.015, Urine Protein 2+H, Urine Glucose (UA) Negative, Urine Ketones 3+H, Urine Blood 3+H, Urine Nitrite Negative, Urine Bilirubin 1+H, Urine Ictotest Negative , Urine Urobilinogen 4H, Urine Leukocyte Esterase 1+H, Urine RBC 10-15H, Urine WBC 5-10H, Urine Squamous Epithelial Cells Few, Urine Bacteria Few, Urine Mucus Occasional 09/16/18 12:55: Potassium Level 2.7*L, Phosphorus Level 1.3L, Magnesium Level 1.6L Current Medications Medications (Trade) Dose Ordered Sig/Jl Route PRN Reason Start Time Stop Time Status Last Admin Dose Admin Acetaminophen (Tylenol) 650 mg Q4H PRN ORAL Mild Pain/Temp > 100.5 09/15/18 13:00 10/15/18 12:59 09/16/18 07:26 Dextrose (Dextrose 50%) 25 ml Q30M PRN IV HYPOGLYCEMIA 09/15/18 04:15 10/15/18 04:14 Dextrose (Dextrose 50%) 50 ml Q30M PRN IV HYPOGLYCEMIA 09/15/18 04:15 10/15/18 04:14 Insulin Human Regular (NovoLIN R) 5 units PRN PRN IV BS 200-299 09/15/18 04:15 10/15/18 04:14 09/15/18 13:10 Insulin Human Regular (NovoLIN R) 10 units PRN PRN IV BS=>300 09/15/18 04:15 10/15/18 04:14 09/15/18 23:29 Insulin Human Regular 100 units/ Sodium Chloride 101 ml @ 0 mls/hr Q24H IV 09/15/18 16:02 10/15/18 16:01 09/15/18 16:27 Lactulose (Cephulac) 20 gm FOUR TIMES A DAY ORAL 09/15/18 18:00 10/15/18 17:59 09/16/18 12:28 Magnesium Sulfate 100 ml @ 100 mls/hr Q1H IVPB 09/16/18 14:30 09/16/18 16:29 09/16/18 15:07 Miscellaneous Medication (Insulin Rate Change) 1 ea PRN PRN MISC Hyperglycemia 09/15/18 04:15 10/15/18 04:14 09/16/18 13:22 Pantoprazole (Protonix) 40 mg DAILY IVP 09/15/18 09:00 10/15/18 08:59 09/16/18 08:29 Piperacillin Sod/ Tazobactam Sod 3.375 gm/Dextrose 110 ml @ 27.5 mls/hr EVERY 8 HOURS IVPB 09/16/18 14:00 09/21/18 13:59 09/16/18 14:37 Potassium Phosphate 30 mm/ Sodium Chloride 285 ml @ 47.5 mls/hr ONCE IV 09/16/18 20:00 09/17/18 02:00 Potassium Chloride 100 ml @ 100 mls/hr Q1H IVPB 09/16/18 14:30 09/16/18 18:29 09/16/18 14:37 Sodium Chloride 1,000 ml @ 100 mls/hr Q10H IV 09/15/18 04:15 10/15/18 04:14 09/16/18 09:32 Juan Carlos Ca MD Sep 16, 2018 15:50
--- NOTE | 2018-09-16 17:30 | Consultation ---
DATE OF CONSULTATION: 09/16/2018 NOTE: "POOR AUDIO QUALITY/DISTORTED AUDIO" INFECTIOUS DISEASES CONSULTATION CONSULTING PHYSICIAN: Ashish Stevens M.D. REASON FOR CONSULTATION: altered mental status. HISTORY OF PRESENTING ILLNESS: This is a 42-year-old gentleman with history of diabetes and hypertension as well as alcoholic liver cirrhosis, who came in because of confusion and altered mental status along with fevers and nausea. He was found to have diabetic ketoacidosis and an Infectious Diseases consultation has been obtained for antibiotics. PAST MEDICAL HISTORY: 1. History of diabetes. 2. History of hypertension. 3. Alcoholic liver cirrhosis. MEDICATIONS: As an inpatient, he is on lactulose, insulin, Tylenol, Protonix. ALLERGIES: No known drug allergies. SOCIAL HISTORY: He does not smoke. He has history of alcohol use. No history of drug use. FAMILY HISTORY: Noncontributory. REVIEW OF SYSTEMS: RESPIRATORY: He had fever and chills. No cough. No shortness of breath. No chest pain. CARDIAC: No chest pain. No palpitations. No dizziness. No syncope. GASTROINTESTINAL: He had nausea. No vomiting. No abdominal pain. No diarrhea. PHYSICAL EXAMINATION: VITAL SIGNS: Temperature of 99.6, T-max of 102.4, pulse of 85, respiratory rate 20, blood pressure 123/79, and O2 saturation of 100%. HEENT: Pupils equally reactive to light and accommodation. Mouth appears clean without thrush. NECK: Supple. No adenopathy. No JVD. CARDIOVASCULAR: Regular rate and rhythm. No murmurs. LUNGS: Clear to auscultation bilaterally. No crackles. No wheezes. ABDOMEN: Soft and nontender. No organomegaly. EXTREMITIES: No cyanosis, no clubbing, no edema. LABORATORY DATA: White count of 15 on 09/15/2018, white count of 8.4 today, hemoglobin 8, hematocrit 24.9, MCV 80, platelet count of 50,000. Sodium 142, potassium 2.5, chloride 110, bicarbonate 14, BUN 7, creatinine 0.9, glucose 156, calcium of 8. On 09/15/2018, total bilirubin 5.2, AST 25, ALT 53, alkaline phosphatase 62, total protein 7.8, albumin 2.5, lipase of 433. UA is showing 5-10 white cells. Urine culture is showing gram-negative rods. ASSESSMENT: DKA and was found to have: 1. Gram-negative urinary tract infection. 2. Leukocytosis, is improving. 3. Alcoholic . Ashish Stevens M.D. DR: Fela JOB#: [id number] CC:
--- NOTE | 2018-09-16 17:52 | Cardiology Report ---
APPROVED REPORT EKG Measurement Heart [id number] Normal sinus rhythm Nonspecific ST and T wave abnormality Prolonged QT Abnormal ECG
[2018-09-16] MEDS ORDERED: Potassium Phosphate 30 MM in NS 275 ML IV SCH (20:00)
[2018-09-17] VITALS (21 sets, daily range): BP systolic 89–125; BP diastolic 56–83
[2018-09-17 04:59] LABS: HEMATOCRIT 25.7 % (42.0-52.0); HEMOGLOBIN 8.3 G/DL (14.2-18.0); MEAN CORPUSCULAR VOLUME 80 FL (80-99); PLATELET COUNT 50 K/UL (150-450); RED BLOOD COUNT 3.22 M/UL (4.70-6.10); RED CELL DISTRIBUTION WIDTH 17.1 % (11.6-14.8); WHITE BLOOD COUNT 9.3 K/UL (4.8-10.8)
[2018-09-17 05:19] LABS: ANION GAP 14 mmol/L (5-15); BLOOD UREA NITROGEN 5 mg/dL (7-18); CALCIUM 7.8 MG/DL (8.5-10.1); CARBON DIOXIDE 16 MMOL/L (21-32); CHLORIDE 108 MMOL/L (98-107); CREATININE 0.9 MG/DL (0.55-1.30); SODIUM 138 MMOL/L (136-145)
[2018-09-17] MEDS: Piperacillin/Tazobactam 3.375 GM in D5W 110 ML IVPB SCH (06:03)
--- NOTE | 2018-09-17 08:18 | Nephrology Progress Note ---
Assessment/Plan Assessment/Plan A/P 1) [place]- resolved 2) E- ABN - replacing K+/Mg and phos - Recheck labs at 1 pm today 3) Dehydration- resolved 4) DKA- resolved 5) Left groin swelling- US 6) Diarrhea- DCed lactulose Subjective Date patient seen: Sep 17, 2018 Time patient seen: 08:17 ROS Limited/Unobtainable: No Constitutional: Reports: weakness Allergies: Coded Allergies: No Known Allergies (Unverified , 12/08/17) Subjective Patient c/o left groin swelling and diarrhea Objective Last 24 Hour Vital Signs Date Time Temp Pulse Resp B/P (MAP) Pulse Ox O2 Delivery O2 Flow Rate FiO2 09/17/18 06:00 104 18 114/72 (86) 99 09/17/18 05:00 97 18 122/74 (90) 100 09/17/18 04:00 98.6 107 18 117/75 (89) 100 09/17/18 04:00 Room Air 09/17/18 04:00 104 09/17/18 03:00 98 17 116/80 (92) 100 09/17/18 02:00 97 18 108/78 (88) 100 09/17/18 01:00 100 19 112/75 (87) 100 09/17/18 00:00 Room Air 09/17/18 00:00 95 09/17/18 00:00 99.5 96 20 109/72 (84) 100 09/16/18 23:00 99 20 116/58 (77) 100 09/16/18 22:00 95 20 118/65 (82) 100 09/16/18 21:00 98 20 116/72 (87) 100 09/16/18 20:00 99 09/16/18 20:00 95 20 125/75 (92) 100 09/16/18 20:00 Room Air 09/16/18 19:00 99.8 98 20 91/71 (78) 100 09/16/18 18:00 99 20 137/81 (99) 100 09/16/18 17:00 91 20 124/78 (93) 100 09/16/18 16:00 Room Air 09/16/18 16:00 99.0 89 19 115/73 (87) 100 09/16/18 16:00 84 09/16/18 15:00 84 19 137/59 (85) 100 09/16/18 14:00 84 19 110/77 (88) 100 09/16/18 13:00 88 19 126/86 (99) 100 09/16/18 12:00 Room Air 09/16/18 12:00 98.7 90 20 103/64 (77) 100 09/16/18 12:00 79 09/16/18 11:00 87 19 115/72 (86) 100 09/16/18 10:00 85 20 123/79 (94) 100 09/16/18 09:00 99 20 121/71 (88) Intake and Output 09/16/18 09/17/18 19:00 07:00 Intake Total 2866.03 ml 1052.39 ml Output Total 150 ml 500 ml Balance 2716.03 ml 552.39 ml Intake Oral 1000 ml 200 ml IV Total 1866.03 ml 852.39 ml Output Urine Total 150 ml Stool Total 500 ml # Voids 2 # Bowel Movements 5 5 Laboratory Tests 09/16/18 10:10: Urine Color Brown, Urine Appearance Clear, Urine pH 6, Urine Specific [place] 1.015, Urine Protein 2+H, Urine Glucose (UA) Negative, Urine Ketones 3+H, Urine Blood 3+H, Urine Nitrite Negative, Urine Bilirubin 1+H, Urine Ictotest Negative , Urine Urobilinogen 4H, Urine Leukocyte Esterase 1+H, Urine RBC 10-15H, Urine WBC 5-10H, Urine Squamous Epithelial Cells Few, Urine Bacteria Few, Urine Mucus Occasional 09/16/18 12:55: Potassium Level 2.7*L, Phosphorus Level 1.3L, Magnesium Level 1.6L 09/17/18 04:30: Potassium Level 3.0L, White Blood Count 9.3, Red Blood Count 3.22L, Hemoglobin 8.3L, Hematocrit 25.7L, Mean Corpuscular Volume 80, Mean Corpuscular Hemoglobin 25.9L, Mean Corpuscular Hemoglobin Concent 32.5, Red Cell Distribution Width 17.1H, Platelet Count 50L, Mean Platelet Volume 7.2, Neutrophils (%) (Auto) , Lymphocytes (%) (Auto) , Monocytes (%) (Auto) , Eosinophils (%) (Auto) , Basophils (%) (Auto) , Sodium Level 138, Chloride Level 108H, Carbon Dioxide Level 16L, Anion Gap 14, Blood Urea Nitrogen 5L, Creatinine 0.9, Estimat Glomerular Filtration Rate > 60, Glucose Level 104, Calcium Level 7.8L Height (Feet): 5 Height (Inches): 5.00 Weight (Pounds): 133 General Appearance: no apparent distress, alert EENT: normal ENT inspection Neck: normal alignment, supple Cardiovascular: normal rate, regular rhythm Respiratory/Chest: normal breath sounds Abdomen: non tender, soft Edema: no edema noted Arm (L), no edema noted Arm (R), no edema noted Leg (L), no edema noted Leg (R), no edema noted Pedal (L), no edema noted Pedal (R), no edema noted Generalized Mau Malone MD Sep 17, 2018 08:18
[2018-09-17] MEDS: Pantoprazole Inj IVP SCH (08:46)
[2018-09-17 08:49] LABS: POTASSIUM 3.1 MMOL/L (3.5-5.1)
--- NOTE | 2018-09-17 10:25 | Infectious Diseases Prog Note ---
Assessment/Plan Assessment/Plan A; Sepsis E. coli UTI DKA Hypokalemia ? inguinal hernia, ? epididymitis Alcoholic cirrhosis P; Change Zosyn to Rocephin Will f/u testicular US Subjective ROS Limited/Unobtainable: No Constitutional: Reports: no symptoms Respiratory: Reports: dry cough Cardiovascular: Reports: no symptoms Gastrointestinal/Abdominal: Reports: no symptoms Genitourinary: Reports: other - left inguinal pain Neurologic: Reports: no symptoms Musculoskeletal: Reports: no symptoms Allergies: Coded Allergies: No Known Allergies (Unverified , 12/08/17) Objective Vital Signs Last 24 Hour Vital Signs Date Time Temp Pulse Resp B/P (MAP) Pulse Ox O2 Delivery O2 Flow Rate FiO2 09/17/18 08:00 Room Air 09/17/18 06:00 104 18 114/72 (86) 99 09/17/18 05:00 97 18 122/74 (90) 100 09/17/18 04:00 98.6 107 18 117/75 (89) 100 09/17/18 04:00 Room Air 09/17/18 04:00 104 09/17/18 03:00 98 17 116/80 (92) 100 09/17/18 02:00 97 18 108/78 (88) 100 09/17/18 01:00 100 19 112/75 (87) 100 09/17/18 00:00 Room Air 09/17/18 00:00 95 09/17/18 00:00 99.5 96 20 109/72 (84) 100 09/16/18 23:00 99 20 116/58 (77) 100 09/16/18 22:00 95 20 118/65 (82) 100 09/16/18 21:00 98 20 116/72 (87) 100 09/16/18 20:00 99 09/16/18 20:00 95 20 125/75 (92) 100 09/16/18 20:00 Room Air 09/16/18 19:00 99.8 98 20 91/71 (78) 100 09/16/18 18:00 99 20 137/81 (99) 100 09/16/18 17:00 91 20 124/78 (93) 100 09/16/18 16:00 Room Air 09/16/18 16:00 99.0 89 19 115/73 (87) 100 09/16/18 16:00 84 09/16/18 15:00 84 19 137/59 (85) 100 09/16/18 14:00 84 19 110/77 (88) 100 09/16/18 13:00 88 19 126/86 (99) 100 09/16/18 12:00 Room Air 09/16/18 12:00 98.7 90 20 103/64 (77) 100 09/16/18 12:00 79 09/16/18 11:00 87 19 115/72 (86) 100 Height (Feet): 5 Height (Inches): 5.00 Weight (Pounds): 133 General Appearance: no acute distress HEENT: mucous membranes moist Respiratory/Chest: lungs clear Cardiovascular: tachycardia Abdomen: soft, non tender Genitourinary: other - tenderness in left inguinal hernia Extremities: no edema Neurologic/Psychiatric: alert, oriented x 3, responsive Microbiology Date/Time Source Procedure Growth Status 09/15/18 03:45 Nasal Nares MRSA Culture - Final NO METHICILLIN RESISTANT STAPH AUREUS... Complete 09/15/18 01:00 Urine,Clean Catch Urine Culture - Final Escherichia Coli Complete 09/15/18 03:45 Rectum - Final NO CARBAPENEM-RESISTANT ENTEROBACTERI... Complete 09/15/18 03:45 Rectum VRE Culture - Final NO VANCOMYCIN RESISTANT ENTEROCOCCUS ... Complete Laboratory Tests Test 09/16/18 12:55 09/17/18 04:30 09/17/18 04:35 Potassium Level 2.7 MMOL/L (3.5-5.1) *L 3.0 MMOL/L (3.5-5.1) L 3.1 MMOL/L (3.5-5.1) L Phosphorus Level 1.3 MG/DL (2.5-4.9) L 2.0 MG/DL (2.5-4.9) L Magnesium Level 1.6 MG/DL (1.8-2.4) L 1.6 MG/DL (1.8-2.4) L White Blood Count 9.3 K/UL (4.8-10.8) Red Blood Count 3.22 M/UL (4.70-6.10) L Hemoglobin 8.3 G/DL (14.2-18.0) L Hematocrit 25.7 % (42.0-52.0) L Mean Corpuscular Volume 80 FL (80-99) Mean Corpuscular Hemoglobin 25.9 PG (27.0-31.0) L Mean Corpuscular Hemoglobin Concent 32.5 G/DL (32.0-36.0) Red Cell Distribution Width 17.1 % (11.6-14.8) H Platelet Count 50 K/UL (150-450) L Mean Platelet Volume 7.2 FL (6.5-10.1) Neutrophils (%) (Auto) % (45.0-75.0) Lymphocytes (%) (Auto) % (20.0-45.0) Monocytes (%) (Auto) % (1.0-10.0) Eosinophils (%) (Auto) % (0.0-3.0) Basophils (%) (Auto) % (0.0-2.0) Sodium Level 138 MMOL/L (136-145) Chloride Level 108 MMOL/L (98-107) H Carbon Dioxide Level 16 MMOL/L (21-32) L Anion Gap 14 mmol/L (5-15) Blood Urea Nitrogen 5 mg/dL (7-18) L Creatinine 0.9 MG/DL (0.55-1.30) Estimat Glomerular Filtration Rate > 60 mL/min (>60) Glucose Level 104 MG/DL (74-106) Calcium Level 7.8 MG/DL (8.5-10.1) L Current Medications Medications (Trade) Dose Ordered Sig/Jl Route PRN Reason Start Time Stop Time Status Last Admin Dose Admin Acetaminophen (Tylenol) 650 mg Q4H PRN ORAL Mild Pain/Temp > 100.5 09/15/18 13:00 10/15/18 12:59 09/17/18 08:09 Dextrose (Dextrose 50%) 25 ml Q30M PRN IV Hypoglycemia 09/17/18 10:00 10/17/18 09:59 Dextrose (Dextrose 50%) 50 ml Q30M PRN IV Hypoglycemia 09/17/18 10:00 10/17/18 09:59 Insulin Aspart (NovoLOG) Q6HR SUBQ 09/17/18 12:00 10/17/18 11:59 Insulin Aspart (NovoLOG) 8 units BEFORE MEALS SUBQ 09/17/18 11:30 10/17/18 11:29 Insulin Detemir (Levemir) 25 units Q12HR SUBQ 11/29/18 11:00 10/17/18 10:59 Insulin Human Regular (NovoLIN R) 5 units PRN PRN IV BS 200-299 09/15/18 04:15 10/15/18 04:14 09/15/18 13:10 Insulin Human Regular (NovoLIN R) 10 units PRN PRN IV BS=>300 09/15/18 04:15 10/15/18 04:14 09/15/18 23:29 Insulin Human Regular 100 units/ Sodium Chloride 101 ml @ 0 mls/hr Q24H IV 09/15/18 16:02 10/15/18 16:01 09/17/18 08:28 Miscellaneous Medication (Insulin Rate Change) 1 ea PRN PRN MISC Hyperglycemia 09/15/18 04:15 10/15/18 04:14 09/16/18 19:10 Pantoprazole (Protonix) 40 mg DAILY IVP 09/15/18 09:00 10/15/18 08:59 09/17/18 08:46 Piperacillin Sod/ Tazobactam Sod 3.375 gm/Dextrose 110 ml @ 27.5 mls/hr EVERY 8 HOURS IVPB 09/16/18 14:00 09/21/18 13:59 09/17/18 06:03 Sodium Chloride 1,000 ml @ 100 mls/hr Q10H IV 09/15/18 04:15 10/15/18 04:14 09/17/18 06:04 Holger Fish MD Sep 17, 2018 10:25
[2018-09-17] MEDS: Insulin Human Regular 100units/ml 3ml IV PRN (11:00)
[2018-09-17] MEDS ORDERED: Levemir Flexpen SUBQ SCH (11:00)
[2018-09-17] MEDS: NovoLOG Insulin Flexpen SUBQ SCH ×4 (11:30→18:21)
[2018-09-17] MEDS ORDERED: cefTRIAXone 1 GM in D5W 55 ML IVPB SCH (12:00)
--- NOTE | 2018-09-17 13:02 | Pulmonology Progress Note ---
Assessment/Plan Assessment/Plan IMPRESSION: 1. Diabetic ketoacidosis. 2. Alcoholic liver cirrhosis. DISCUSSION: Admitted to the hospital. Keep in intensive care unit. continue start insulin drip. Protonix to be given. Replace potassium. seen by Endocrinology. continue lactulose. Subjective Interval Events: feeling better. Tolerating diet Constitutional: Reports: no symptoms HEENT: Repors: no symptoms Respiratory: Reports: no symptoms Cardiovascular: Reports: no symptoms Gastrointestinal/Abdominal: Reports: no symptoms Genitourinary: Reports: no symptoms Allergies: Coded Allergies: No Known Allergies (Unverified , 12/08/17) Objective Last 24 Hour Vital Signs Date Time Temp Pulse Resp B/P (MAP) Pulse Ox O2 Delivery O2 Flow Rate FiO2 09/17/18 12:00 95 24 97/64 (75) 99 09/17/18 11:00 86 20 98/62 (74) 98 09/17/18 10:00 91 20 93/61 (72) 98 09/17/18 09:00 114 23 125/73 (90) 98 09/17/18 08:00 111 22 121/83 (96) 100 09/17/18 08:00 Room Air 09/17/18 07:00 100.1 97 19 109/73 (85) 99 09/17/18 06:00 104 18 114/72 (86) 99 09/17/18 05:00 97 18 122/74 (90) 100 09/17/18 04:00 98.6 107 18 117/75 (89) 100 09/17/18 04:00 Room Air 09/17/18 04:00 104 09/17/18 03:00 98 17 116/80 (92) 100 09/17/18 02:00 97 18 108/78 (88) 100 09/17/18 01:00 100 19 112/75 (87) 100 09/17/18 00:00 Room Air 09/17/18 00:00 95 09/17/18 00:00 99.5 96 20 109/72 (84) 100 09/16/18 23:00 99 20 116/58 (77) 100 09/16/18 22:00 95 20 118/65 (82) 100 09/16/18 21:00 98 20 116/72 (87) 100 09/16/18 20:00 99 09/16/18 20:00 95 20 125/75 (92) 100 09/16/18 20:00 Room Air 09/16/18 19:00 99.8 98 20 91/71 (78) 100 09/16/18 18:00 99 20 137/81 (99) 100 09/16/18 17:00 91 20 124/78 (93) 100 09/16/18 16:00 Room Air 09/16/18 16:00 99.0 89 19 115/73 (87) 100 09/16/18 16:00 84 09/16/18 15:00 84 19 137/59 (85) 100 09/16/18 14:00 84 19 110/77 (88) 100 Intake and Output 09/16/18 09/17/18 18:59 06:59 Intake Total 2861.49 ml 1160.97 ml Output Total 150 ml 500 ml Balance 2711.49 ml 660.97 ml Intake Oral 1000 ml 200 ml IV Total 1861.49 ml 960.97 ml Output Urine Total 150 ml Stool Total 500 ml # Voids 2 # Bowel Movements 5 5 General Appearance: no acute distress HEENT: normocephalic Respiratory/Chest: chest wall non-tender, lungs clear Cardiovascular: normal peripheral pulses, normal rate Abdomen: normal bowel sounds Microbiology Date/Time Source Procedure Growth Status 09/15/18 03:45 Nasal Nares MRSA Culture - Final NO METHICILLIN RESISTANT STAPH AUREUS... Complete 09/15/18 01:00 Urine,Clean Catch Urine Culture - Final Escherichia Coli Complete 09/15/18 03:45 Rectum - Final NO CARBAPENEM-RESISTANT ENTEROBACTERI... Complete 09/15/18 03:45 Rectum VRE Culture - Final NO VANCOMYCIN RESISTANT ENTEROCOCCUS ... Complete Laboratory Tests 09/17/18 04:30: White Blood Count 9.3, Red Blood Count 3.22L, Hemoglobin 8.3L, Hematocrit 25.7L , Mean Corpuscular Volume 80, Mean Corpuscular Hemoglobin 25.9L, Mean Corpuscular Hemoglobin Concent 32.5, Red Cell Distribution Width 17.1H, Platelet Count 50L, Mean Platelet Volume 7.2, Neutrophils (%) (Auto) , Lymphocytes (%) (Auto) , Monocytes (%) (Auto) , Eosinophils (%) (Auto) , Basophils (%) (Auto) , Sodium Level 138, Potassium Level 3.0L, Chloride Level 108H, Carbon Dioxide Level 16L, Anion Gap 14, Blood Urea Nitrogen 5L, Creatinine 0.9, Estimat Glomerular Filtration Rate > 60, Glucose Level 104, Calcium Level 7.8L 09/17/18 04:35: Potassium Level 3.1L, Phosphorus Level 2.0L, Magnesium Level 1.6L Current Medications Medications (Trade) Dose Ordered Sig/Jl Route PRN Reason Start Time Stop Time Status Last Admin Dose Admin Acetaminophen (Tylenol) 650 mg Q4H PRN ORAL Mild Pain/Temp > 100.5 09/15/18 13:00 10/15/18 12:59 09/17/18 08:09 Ceftriaxone Sodium 1 gm/ Dextrose 55 ml @ 110 mls/hr Q24H IVPB 09/17/18 12:00 09/24/18 11:59 09/17/18 12:57 Dextrose (Dextrose 50%) 25 ml Q30M PRN IV Hypoglycemia 09/17/18 10:00 10/17/18 09:59 Dextrose (Dextrose 50%) 50 ml Q30M PRN IV Hypoglycemia 09/17/18 10:00 10/17/18 09:59 Insulin Aspart (NovoLOG) Q6HR SUBQ 09/17/18 12:00 10/17/18 11:59 09/17/18 12:47 Insulin Aspart (NovoLOG) 8 units BEFORE MEALS SUBQ 09/17/18 11:30 10/17/18 11:29 09/17/18 11:30 Insulin Detemir (Levemir) 25 units Q12HR SUBQ 09/17/18 11:00 10/17/18 10:59 09/17/18 11:35 Insulin Human Regular (NovoLIN R) 5 units PRN PRN IV BS 200-299 09/15/18 04:15 10/15/18 04:14 09/17/18 11:00 Insulin Human Regular (NovoLIN R) 10 units PRN PRN IV BS=>300 09/15/18 04:15 10/15/18 04:14 09/15/18 23:29 Insulin Human Regular 100 units/ Sodium Chloride 101 ml @ 0 mls/hr Q24H IV 09/15/18 16:02 10/15/18 16:01 09/17/18 11:37 Miscellaneous Medication (Insulin Rate Change) 1 ea PRN PRN MISC Hyperglycemia 09/15/18 04:15 10/15/18 04:14 09/16/18 19:10 Pantoprazole (Protonix) 40 mg DAILY IVP 09/15/18 09:00 10/15/18 08:59 09/17/18 08:46 Sodium Chloride 1,000 ml @ 100 mls/hr Q10H IV 09/15/18 04:15 10/15/18 04:14 09/17/18 06:04 Juan Carlos Ca MD Sep 17, 2018 13:01
--- NOTE | 2018-09-17 15:15 | Diagnostic Imaging Report ---
Indications: Bilateral inguinal swelling, left more than right Technique: Grayscale and duplex images of the scrotum Comparison: none Findings:The right testicle measures 4cm in length. It demonstrates normal echogenicity. Normal Doppler flow. . Small cyst is seen within the epididymal head, measuring 5 mm diameter. There is trace right hydrocele The left testicle measures 3.6 cm in length. It demonstrates normal echogenicity and normal Doppler flow. 6 mm cyst is seen in the epididymal head and a second 2 mm cyst also demonstrated. 10 mm lymph node is seen in the left groin region. There is scrotal wall edema. Within the left groin there is a loculated area of mixed mostly low echogenicity, with 2 main locules appearing to communicate. Peripheral locule measures 2.5 x 1 cm in diameter. The locule measures approximately 2.5 x 10 cm, and is itself complex in appearance. The appearance of this is suggestive of an abscess. Impression: Findings suspicious for multiloculated left groin abscess. Left-sided scrotal wall edema, nonspecific but could indicate cellulitis Normal testicles Incidental finding small right hydrocele, bilateral small epididymal head cysts
[2018-09-17] MEDS ORDERED: Tubing IV Secondary IV ONE (16:53)
[2018-09-17] MEDS ORDERED: NS 275ml ONE (16:53)
[2018-09-17] MEDS ORDERED: Potassium Phosphate 30 MM in NS 275 ML IV SCH ×4 (20:00)
[2018-09-17] MEDS: Levemir Flexpen SUBQ SCH (21:00)
[2018-09-18] VITALS (7 sets, daily range): BP systolic 97–121; BP diastolic 62–81
[2018-09-18] MEDS ORDERED: Insulin Human Regular 100units/ml 3ml IV PRN ×2 (04:15)
[2018-09-18] MEDS ORDERED: Insulin Rate Change 1 Each MISC PRN (04:15)
[2018-09-18] MEDS: NovoLOG Insulin Flexpen SUBQ SCH ×8 (06:00→23:06)
[2018-09-18 07:50] LABS: ANION GAP 12 mmol/L (5-15); BLOOD UREA NITROGEN 4 mg/dL (7-18); CARBON DIOXIDE 17 MMOL/L (21-32); CHLORIDE 104 MMOL/L (98-107); CREATININE 0.8 MG/DL (0.55-1.30); POTASSIUM 3.6 MMOL/L (3.5-5.1); SODIUM 133 MMOL/L (136-145)
--- NOTE | 2018-09-18 08:15 | Nephrology Progress Note ---
Assessment/Plan Assessment/Plan A/P 1) [place]- resolved 2) E- ABN - replacing K+/Mg and phos prn. AM labs pending - corrected 3) Dehydration- resolved 4) DKA- resolved 5) Left groin swelling- US -Findings suspicious for multiloculated left groin abscess - Abx per ID 6) Diarrhea- DCed lactulose and resolved Subjective Date patient seen: Sep 18, 2018 Time patient seen: 08:13 ROS Limited/Unobtainable: No Allergies: Coded Allergies: No Known Allergies (Unverified , 12/08/17) Subjective Patient c/o left groin swelling Objective Last 24 Hour Vital Signs Date Time Temp Pulse Resp B/P (MAP) Pulse Ox O2 Delivery O2 Flow Rate FiO2 09/18/18 04:00 99.2 102 20 116/70 (85) 100 09/18/18 00:00 98.1 100 20 121/71 (88) 100 09/17/18 21:00 Room Air 09/17/18 20:00 98.2 95 19 108/74 (85) 97 09/17/18 18:40 98.9 96 18 106/72 (83) 100 09/17/18 18:00 97 22 95/63 (74) 96 09/17/18 18:00 80 09/17/18 17:00 86 21 103/73 (83) 100 09/17/18 16:00 99.0 103 29 103/70 (81) 98 09/17/18 16:00 Room Air 09/17/18 16:00 80 09/17/18 15:00 90 25 95/63 (74) 98 09/17/18 14:00 87 18 89/56 (67) 99 09/17/18 13:00 96 26 107/76 (86) 100 09/17/18 12:00 98.9 95 24 97/64 (75) 99 09/17/18 12:00 Room Air 09/17/18 12:00 87 09/17/18 11:00 86 20 98/62 (74) 98 09/17/18 10:00 91 20 93/61 (72) 98 09/17/18 09:00 114 23 125/73 (90) 98 Intake and Output 09/17/18 09/18/18 19:00 07:00 Intake Total 1795.15 ml 795.0 ml Balance 1795.15 ml 795.0 ml Intake Oral 770 ml IV Total 1025.15 ml 795.0 ml # Voids 2 # Bowel Movements 7 Laboratory Tests 09/18/18 06:40: Sodium Level 133L, Potassium Level 3.6, Chloride Level 104, Carbon Dioxide Level 17L, Anion Gap 12, Blood Urea Nitrogen 4L, Creatinine 0.8, Estimat Glomerular Filtration Rate > 60, Glucose Level 147H, Calcium Level 8.0L Height (Feet): 5 Height (Inches): 5.00 Weight (Pounds): 136 General Appearance: no apparent distress, alert EENT: normal ENT inspection Neck: normal alignment, supple Cardiovascular: normal rate, regular rhythm Respiratory/Chest: lungs clear, normal breath sounds Abdomen: non tender, soft Edema: no edema noted Arm (L), no edema noted Arm (R), no edema noted Leg (L), no edema noted Leg (R), no edema noted Pedal (L), no edema noted Pedal (R), no edema noted Generalized Mau Malnoe MD Sep 18, 2018 08:15
[2018-09-18] MEDS: Pantoprazole Inj IVP SCH (08:18)
[2018-09-18] MEDS: Levemir Flexpen SUBQ SCH (08:21)
--- NOTE | 2018-09-18 08:49 | Pulmonology Progress Note ---
Assessment/Plan Assessment/Plan IMPRESSION: 1. Diabetic ketoacidosis. 2. Alcoholic liver cirrhosis. 3. Groin abscess? DISCUSSION: Abx per ID Insulin and diabetes control Will consult surgery for abscess Subjective Interval Events: Feeling better; still has pain in left groin Constitutional: Reports: no symptoms HEENT: Repors: no symptoms Respiratory: Reports: no symptoms Cardiovascular: Reports: no symptoms Gastrointestinal/Abdominal: Reports: no symptoms Genitourinary: Reports: no symptoms Neurologic: Reports: no symptoms Allergies: Coded Allergies: No Known Allergies (Unverified , 12/08/17) Objective Last 24 Hour Vital Signs Date Time Temp Pulse Resp B/P (MAP) Pulse Ox O2 Delivery O2 Flow Rate FiO2 09/18/18 08:00 101.7 116 18 121/81 (94) 100 09/18/18 04:00 99.2 102 20 116/70 (85) 100 09/18/18 00:00 98.1 100 20 121/71 (88) 100 09/17/18 21:00 Room Air 09/17/18 20:00 98.2 95 19 108/74 (85) 97 09/17/18 18:40 98.9 96 18 106/72 (83) 100 09/17/18 18:00 97 22 95/63 (74) 96 09/17/18 18:00 80 09/17/18 17:00 86 21 103/73 (83) 100 09/17/18 16:00 99.0 103 29 103/70 (81) 98 09/17/18 16:00 Room Air 09/17/18 16:00 80 09/17/18 15:00 90 25 95/63 (74) 98 09/17/18 14:00 87 18 89/56 (67) 99 09/17/18 13:00 96 26 107/76 (86) 100 09/17/18 12:00 98.9 95 24 97/64 (75) 99 09/17/18 12:00 Room Air 09/17/18 12:00 87 09/17/18 11:00 86 20 98/62 (74) 98 09/17/18 10:00 91 20 93/61 (72) 98 09/17/18 09:00 114 23 125/73 (90) 98 Intake and Output 09/17/18 09/18/18 19:00 07:00 Intake Total 1795.15 ml 795.0 ml Balance 1795.15 ml 795.0 ml Intake Oral 770 ml IV Total 1025.15 ml 795.0 ml # Voids 2 # Bowel Movements 7 General Appearance: no acute distress HEENT: normocephalic Respiratory/Chest: chest wall non-tender, lungs clear Cardiovascular: normal peripheral pulses, normal rate Abdomen: normal bowel sounds Genitourinary: other - has painful swelling left groin Laboratory Tests 09/18/18 06:40: Sodium Level 133L, Potassium Level 3.6, Chloride Level 104, Carbon Dioxide Level 17L, Anion Gap 12, Blood Urea Nitrogen 4L, Creatinine 0.8, Estimat Glomerular Filtration Rate > 60, Glucose Level 147H, Calcium Level 8.0L Current Medications Medications (Trade) Dose Ordered Sig/Jl Route PRN Reason Start Time Stop Time Status Last Admin Dose Admin Acetaminophen (Tylenol) 650 mg Q4H PRN ORAL Mild Pain/Temp > 100.5 09/17/18 21:00 10/15/18 12:59 09/18/18 08:19 Ceftriaxone Sodium 1 gm/ Dextrose 55 ml @ 110 mls/hr Q24H IVPB 09/18/18 12:00 09/24/18 11:59 Dextrose (Dextrose 50%) 25 ml Q30M PRN IV Hypoglycemia 09/17/18 19:00 10/17/18 09:59 Dextrose (Dextrose 50%) 50 ml Q30M PRN IV Hypoglycemia 09/17/18 19:00 10/17/18 09:59 Insulin Aspart (NovoLOG) Q6HR SUBQ 09/18/18 00:00 10/17/18 11:59 Insulin Aspart (NovoLOG) 8 units BEFORE MEALS SUBQ 09/18/18 06:30 10/17/18 11:29 09/18/18 06:15 Insulin Detemir (Levemir) 25 units Q12HR SUBQ 09/17/18 21:00 10/17/18 10:59 09/18/18 08:21 Pantoprazole (Protonix) 40 mg DAILY IVP 09/18/18 09:00 10/15/18 08:59 09/18/18 08:18 Sodium Chloride 1,000 ml @ 100 mls/hr Q10H IV 09/17/18 19:00 10/15/18 04:14 09/18/18 06:00 Juan Carlos Ca MD Sep 18, 2018 08:49
[2018-09-18] MEDS: cefTRIAXone 1 GM in D5W 55 ML IVPB SCH (14:00)
[2018-09-18] MEDS ORDERED: Isovue-300 100ml vial INJ PRN (17:30)
--- NOTE | 2018-09-18 17:46 | Consultation ---
History of Present Illness General Chief Complaint: General Complaint Present Illness HPI 42-year-old gentleman with history of diabetes and hypertension as well as alcoholic liver cirrhosis, who came in because of confusion and altered mental status along with fevers and nausea. He was found to have diabetic ketoacidosis and admitted for care/ management. On admission now improving and complaining of pelvic pain with induration in groin area. Concerns for abscess. surgery called to evaluate. patient seen, chart reviewed, patient examined. states initially right upper inner thigh/groin wound and pain which is not mainly left groin pain with lump. unsure how long present. pain sharp. currently no drainage but right side did have some oozing. no prior similar events. Allergies: Coded Allergies: No Known Allergies (Unverified , 12/08/17) Medication History Scheduled Atenolol* (Tenormin*), 25 MG ORAL DAILY, (Reported) Folic Acid* (Folic Acid*), 1 MG ORAL DAILY Lactulose (Lactulose*), 30 GM ORAL BID Levetiracetam* (Levetiracetam*), 750 MG GT BID, (Reported) Multivitamin With Minerals (Multivitamins With Minerals*), 1 EA ORAL DAILY Nitrofurantoin Monohyd/M-Cryst* (Macrobid 100 Mg*), 100 MG ORAL EVERY 12 HOURS Pantoprazole* (Pantoprazole*), 40 MG ORAL DAILY Prednisone* (Prednisone*), 40 MG ORAL DAILY Rifaximin* (Xifaxan*), 550 MG ORAL EVERY 12 HOURS Thiamine Hcl (Vitamin B1*), 100 MG ORAL DAILY Miscellaneous Medications Calcitriol (Calcitriol*), 0.25 MCG IV, (Reported) Ursodiol (Nik Forte), 500 MG PO, (Reported) Patient History History Provided By: Patient, Medical Record, PMD Healthcare decision maker Resuscitation status Full Code Advanced Directive on File Past Medical/Surgical History Past Medical/Surgical History: (1) Bloody stool (2) Cirrhosis (3) Alcohol abuse with physiological dependence (4) lives at home (5) Coagulopathy (6) Alcoholic cirrhosis (7) Sepsis (8) Acute blood loss anemia (9) Colonic polyp (10) Internal and external hemorrhoids without complication (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 (12) Acute upper and lower GI bleed (13) Hematuria (14) Hematuria (15) Mild epistaxis (16) Epistaxis (17) Alcoholic cirrhosis of liver (18) Anemia of chronic disease (19) Acute hepatic encephalopathy (20) Proteinuria (21) Urinary tract infection due to extended-spectrum beta lactamase (ESBL) producing Escherichia coli (22) DKA (diabetic ketoacidosis) Review of Systems All Other Systems: negative except mentioned in HPI Physical Exam General Appearance: no apparent distress, alert Lines, tubes and drains: peripheral HEENT: normocephalic, atraumatic, mucous membranes moist Neck: normal inspection Respiratory/Chest: normal breath sounds, no respiratory distress, no accessory muscle use Cardiovascular/Chest: regular rhythm Abdomen: normal bowel sounds, non tender, soft, no organomegaly, no mass Extremities: normal inspection, no calf tenderness Skin Exam: warm/dry, other - 3cm x 5cm area of induration in left groin just above penile shaft. old wound on right inguinal area Neurologic: alert, responsive Last 24 Hour Vital Signs Date Time Temp Pulse Resp B/P (MAP) Pulse Ox O2 Delivery O2 Flow Rate FiO2 09/18/18 16:00 98.8 92 18 107/66 (80) 99 09/18/18 14:29 97.9 94 20 110/64 (79) 100 09/18/18 14:29 97.9 09/18/18 12:00 100.2 99 20 101/62 (75) 96 09/18/18 09:00 Room Air 09/18/18 08:00 101.7 116 18 121/81 (94) 100 09/18/18 04:00 99.2 102 20 116/70 (85) 100 09/18/18 00:00 98.1 100 20 121/71 (88) 100 09/17/18 21:00 Room Air 09/17/18 20:00 98.2 95 19 108/74 (85) 97 09/17/18 18:40 98.9 96 18 106/72 (83) 100 09/17/18 18:00 97 22 95/63 (74) 96 09/17/18 18:00 80 Intake and Output 09/17/18 09/18/18 18:59 06:59 Intake Total 2005.15 ml 795.0 ml Balance 2005.15 ml 795.0 ml Intake Oral 880 ml 0 ml IV Total 1125.15 ml 795.0 ml # Voids 2 # Bowel Movements 8 Laboratory Tests Test 09/18/18 06:40 Sodium Level 133 MMOL/L (136-145) L Potassium Level 3.6 MMOL/L (3.5-5.1) Chloride Level 104 MMOL/L (98-107) Carbon Dioxide Level 17 MMOL/L (21-32) L Anion Gap 12 mmol/L (5-15) Blood Urea Nitrogen 4 mg/dL (7-18) L Creatinine 0.8 MG/DL (0.55-1.30) Estimat Glomerular Filtration Rate > 60 mL/min (>60) Glucose Level 147 MG/DL (74-106) H Calcium Level 8.0 MG/DL (8.5-10.1) L Height (Feet): 5 Height (Inches): 5.00 Weight (Pounds): 136 Medications Current Medications Medications (Trade) Dose Ordered Sig/Jl Route PRN Reason Start Time Stop Time Status Last Admin Dose Admin Acetaminophen (Tylenol) 650 mg Q4H PRN ORAL Mild Pain/Temp > 100.5 09/17/18 21:00 10/15/18 12:59 09/18/18 13:59 Ceftriaxone Sodium 1 gm/ Dextrose 55 ml @ 110 mls/hr Q24H IVPB 09/18/18 12:00 09/24/18 11:59 09/18/18 14:00 Dextrose (Dextrose 50%) 25 ml Q30M PRN IV Hypoglycemia 09/17/18 19:00 10/17/18 09:59 Dextrose (Dextrose 50%) 50 ml Q30M PRN IV Hypoglycemia 09/17/18 19:00 10/17/18 09:59 Insulin Aspart (NovoLOG) Q6HR SUBQ 09/18/18 00:00 10/17/18 11:59 09/18/18 17:03 Insulin Aspart (NovoLOG) 8 units BEFORE MEALS SUBQ 09/18/18 06:30 10/17/18 11:29 09/18/18 17:02 Insulin Detemir (Levemir) 25 units Q12HR SUBQ 09/17/18 21:00 10/17/18 10:59 09/18/18 08:21 Iopamidol (Isovue-300 100ml) 100 ml NOW PRN INJ Radiology Procedure 09/18/18 17:30 12/2/18 17:26 Pantoprazole (Protonix) 40 mg DAILY IVP 09/18/18 09:00 10/15/18 08:59 09/18/18 08:18 Sodium Chloride 1,000 ml @ 100 mls/hr Q10H IV 09/17/18 19:00 10/15/18 04:14 09/18/18 16:08 Assessment/Plan Problem List: (1) Abscess or cellulitis of groin SNOMED: 615922305 (2) Cellulitis of groin Assessment & Plan: leukocytosis on admission area of induration on exam in left groin old area of healing induration on right inguinal/femoral region ultrasound noted currently stable very close to cord structures will obtain CT prior to I&D to ensure location and contents thank you. will follow with recs ICD Codes: L03.314 - Cellulitis of groin SNOMED: 95965488 Status: stable Giovanni Oh Sep 18, 2018 17:46
[2018-09-18] MEDS ORDERED: Lidocaine 1% 10mg/ml/Epi 0.005mg/ml 30ml vial INJ SCH (18:00)
[2018-09-19] VITALS: BP 112/76
[2018-09-19 04:00] VITALS: BP 112/74
[2018-09-19] MEDS: NovoLOG Insulin Flexpen SUBQ SCH ×5 (06:28→17:57)
[2018-09-19] MEDS ORDERED: NovoLOG Insulin Flexpen SUBQ SCH (06:30)
[2018-09-19 07:02] LABS: ANION GAP 12 mmol/L (5-15); BLOOD UREA NITROGEN 4 mg/dL (7-18); CALCIUM 7.8 MG/DL (8.5-10.1); CARBON DIOXIDE 19 MMOL/L (21-32); CHLORIDE 105 MMOL/L (98-107); CREATININE 0.7 MG/DL (0.55-1.30); PHOSPHORUS 1.9 MG/DL (2.5-4.9); POTASSIUM 3.2 MMOL/L (3.5-5.1); SODIUM 135 MMOL/L (136-145)
--- NOTE | 2018-09-19 07:04 | General Progress Note ---
Assessment/Plan Problem List: (1) Diabetes mellitus out of control ICD Codes: E11.65 - Type 2 diabetes mellitus with hyperglycemia SNOMED: 12656292, 965525323 (2) DKA (diabetic ketoacidosis) ICD Codes: E13.10 - Other specified diabetes mellitus with ketoacidosis without coma SNOMED: 964548458, 34665725 Qualifiers: Qualified Codes: E13.10 - Other specified diabetes mellitus with ketoacidosis without coma (3) Alcoholic cirrhosis of liver ICD Codes: K70.30 - Alcoholic cirrhosis of liver without ascites SNOMED: 749083331, 693047834 Qualifiers: Qualified Codes: K70.30 - Alcoholic cirrhosis of liver without ascites (4) Abscess or cellulitis of groin SNOMED: 140834227 Assessment/Plan reduce Levemir to 15 units daily - start after he comes back from procedure reduce Novolog to 5 units ac tid continue NISS he will stay on insulin after program manager transportation to call me today with his BG values as soon as he is back from OR Subjective Allergies: Coded Allergies: No Known Allergies (Unverified , 12/08/17) All Systems: reviewed and negative except above Subjective NPO for groin abscess I/D low glucose this morning Objective Last 24 Hour Vital Signs Date Time Temp Pulse Resp B/P (MAP) Pulse Ox O2 Delivery O2 Flow Rate FiO2 09/19/18 04:00 98.8 99 18 112/74 (87) 97 09/19/18 00:00 98.0 109 18 112/76 (88) 98 09/18/18 21:00 Room Air 09/18/18 20:00 98.0 94 18 97/62 (74) 98 09/18/18 16:00 98.8 92 18 107/66 (80) 99 09/18/18 14:29 97.9 94 20 110/64 (79) 100 09/18/18 14:29 97.9 09/18/18 12:00 100.2 99 20 101/62 (75) 96 09/18/18 09:00 Room Air 09/18/18 08:00 101.7 116 18 121/81 (94) 100 Intake and Output 09/18/18 09/19/18 19:00 07:00 Intake Total 1420 ml 1800 ml Balance 1420 ml 1800 ml Intake Oral 520 ml 600 ml IV Total 900 ml 1200 ml # Voids 3 1 Laboratory Tests 12/1/18 05:45: Sodium Level [Pending], Potassium Level [Pending], Chloride Level [Pending], Carbon Dioxide Level [Pending], Blood Urea Nitrogen [Pending], Creatinine [ Pending], Estimat Glomerular Filtration Rate [Pending], Glucose Level [Pending] , Calcium Level [Pending], Phosphorus Level [Pending], Magnesium Level [Pending] Height (Feet): 5 Height (Inches): 5.00 Weight (Pounds): 155 General Appearance: no apparent distress Neck: normal alignment Cardiovascular: normal rate Respiratory/Chest: chest wall non-tender, lungs clear Objective Current Medications Medications (Trade) Dose Ordered Sig/Jl Route PRN Reason Start Time Stop Time Status Last Admin Dose Admin Acetaminophen (Tylenol) 650 mg Q4H PRN ORAL Mild Pain/Temp > 100.5 09/17/18 21:00 10/15/18 12:59 09/19/18 01:39 Ceftriaxone Sodium 1 gm/ Dextrose 55 ml @ 110 mls/hr Q24H IVPB 09/18/18 12:00 09/24/18 11:59 09/18/18 14:00 Dextrose (Dextrose 50%) 25 ml Q30M PRN IV Hypoglycemia 09/17/18 19:00 10/17/18 09:59 Dextrose (Dextrose 50%) 50 ml Q30M PRN IV Hypoglycemia 09/17/18 19:00 10/17/18 09:59 Insulin Aspart (NovoLOG) Q6HR SUBQ 09/18/18 00:00 10/17/18 11:59 09/19/18 06:28 Insulin Aspart (NovoLOG) 6 units BEFORE MEALS SUBQ 09/19/18 06:30 10/17/18 11:29 Insulin Detemir (Levemir) 20 units DAILY SUBQ 09/19/18 09:00 10/17/18 10:59 Iopamidol (Isovue-300 100ml) 100 ml NOW PRN INJ Radiology Procedure 09/18/18 17:30 09/20/18 17:26 Pantoprazole (Protonix) 40 mg DAILY IVP 09/18/18 09:00 10/15/18 08:59 09/18/18 08:18 Sodium Chloride 1,000 ml @ 100 mls/hr Q10H IV 09/17/18 19:00 10/15/18 04:14 09/18/18 23:06 Item Value Date Time Bedside Blood Glucose 124 mg/dl H 09/19/18 0628 Bedside Blood Glucose 143 mg/dl H 09/19/18 0030 Bedside Blood Glucose 112 mg/dl 09/18/18 1703 Bedside Blood Glucose 203 mg/dl H 09/18/18 1259 Aaron Salvador MD Sep 19, 2018 07:04
[2018-09-19 08:00] VITALS: BP 102/66
[2018-09-19] MEDS ORDERED: Levemir Flexpen SUBQ SCH (09:00)
[2018-09-19] MEDS: Pantoprazole Inj IVP SCH (09:23)
[2018-09-19] MEDS: Levemir Flexpen SUBQ SCH (09:26)
--- NOTE | 2018-09-19 09:51 | Nephrology Progress Note ---
Assessment/Plan Assessment/Plan A/P 1) [place]- resolved 2) E- ABN - replacing K+/Mg and phos prn 3) Dehydration- resolved 4) DKA- resolved 5) Left groin swelling- US - multiloculated left groin abscess - Abx per ID and drainaige pending Subjective Date patient seen: Sep 19, 2018 Time patient seen: 09:49 ROS Limited/Unobtainable: No Allergies: Coded Allergies: No Known Allergies (Unverified , 12/08/17) Subjective Patient feels better, no complaints Objective Last 24 Hour Vital Signs Date Time Temp Pulse Resp B/P (MAP) Pulse Ox O2 Delivery O2 Flow Rate FiO2 09/19/18 08:00 97.2 102 17 102/66 (78) 96 102 09/19/18 04:00 98.8 99 18 112/74 (87) 97 09/19/18 00:00 98.0 109 18 112/76 (88) 98 09/18/18 21:00 Room Air 09/18/18 20:00 98.0 94 18 97/62 (74) 98 09/18/18 16:00 98.8 92 18 107/66 (80) 99 09/18/18 14:29 97.9 94 20 110/64 (79) 100 09/18/18 14:29 97.9 09/18/18 12:00 100.2 99 20 101/62 (75) 96 Intake and Output 09/18/18 09/19/18 19:00 07:00 Intake Total 1420 ml 1800 ml Balance 1420 ml 1800 ml Intake Oral 520 ml 600 ml IV Total 900 ml 1200 ml # Voids 3 1 Laboratory Tests 09/19/18 05:45: Sodium Level 135L, Potassium Level 3.2L, Chloride Level 105, Carbon Dioxide Level 19L, Anion Gap 12, Blood Urea Nitrogen 4L, Creatinine 0.7, Estimat Glomerular Filtration Rate > 60, Glucose Level 113H, Calcium Level 7.8L, Phosphorus Level 1.9L, Magnesium Level 1.4L Height (Feet): 5 Height (Inches): 5.00 Weight (Pounds): 155 General Appearance: no apparent distress, alert EENT: normal ENT inspection Neck: normal alignment, supple Cardiovascular: normal rate, regular rhythm Respiratory/Chest: normal breath sounds, no respiratory distress Abdomen: non tender, soft Edema: no edema noted Arm (L), no edema noted Arm (R), no edema noted Leg (L), no edema noted Leg (R), no edema noted Pedal (L), no edema noted Pedal (R), no edema noted Generalized Mau Malone MD Sep 19, 2018 09:51
[2018-09-19] MEDS ORDERED: Potassium Phosphate 30 MM in NS 275 ML IV ONE (10:00)
--- NOTE | 2018-09-19 11:00 | Infectious Diseases Prog Note ---
"Assessment/Plan Assessment/Plan antibiotics : ceftriaxone A 1. e.coli UTI 2. left groin cellulitis | abscess 3. DKA resolving 4. cirrhosis of liver 5. leucocytosis resolved P 1. continue ceftriaxone 2. start iv vancomycin 3. will follow up cultures Subjective Constitutional: Denies: fever, chills Respiratory: Denies: shortness of breath, dry cough Gastrointestinal/Abdominal: Denies: nausea, vomiting, diarrhea Musculoskeletal: Denies: pain Allergies: Coded Allergies: No Known Allergies (Unverified , 12/08/17) Objective Vital Signs Last 24 Hour Vital Signs Date Time Temp Pulse Resp B/P (MAP) Pulse Ox O2 Delivery O2 Flow Rate FiO2 09/19/18 09:00 Room Air 09/19/18 08:00 97.2 102 17 102/66 (78) 96 102 09/19/18 04:00 98.8 99 18 112/74 (87) 97 09/19/18 00:00 98.0 109 18 112/76 (88) 98 09/18/18 21:00 Room Air 09/18/18 20:00 98.0 94 18 97/62 (74) 98 09/18/18 16:00 98.8 92 18 107/66 (80) 99 09/18/18 14:29 97.9 94 20 110/64 (79) 100 09/18/18 14:29 97.9 09/18/18 12:00 100.2 99 20 101/62 (75) 96 Height (Feet): 5 Height (Inches): 5.00 Weight (Pounds): 155 HEENT: other - sclera icteric Respiratory/Chest: lungs clear Cardiovascular: normal rate, regular rhythm, no gallop/murmur Abdomen: soft, non tender Extremities: no edema Laboratory Tests Test 09/19/18 05:45 Sodium Level 135 MMOL/L (136-145) L Potassium Level 3.2 MMOL/L (3.5-5.1) L Chloride Level 105 MMOL/L (98-107) Carbon Dioxide Level 19 MMOL/L (21-32) L Anion Gap 12 mmol/L (5-15) Blood Urea Nitrogen 4 mg/dL (7-18) L Creatinine 0.7 MG/DL (0.55-1.30) Estimat Glomerular Filtration Rate > 60 mL/min (>60) Glucose Level 113 MG/DL (74-106) H Calcium Level 7.8 MG/DL (8.5-10.1) L Phosphorus Level 1.9 MG/DL (2.5-4.9) L Magnesium Level 1.4 MG/DL (1.8-2.4) L Current Medications Medications (Trade) Dose Ordered Sig/Jl Route PRN Reason Start Time Stop Time Status Last Admin Dose Admin Acetaminophen (Tylenol) 650 mg Q4H PRN ORAL Mild Pain/Temp > 100.5 09/17/18 21:00 10/15/18 12:59 09/19/18 01:39 Ceftriaxone Sodium 1 gm/ Dextrose 55 ml @ 110 mls/hr Q24H IVPB 09/18/18 12:00 09/24/18 11:59 09/18/18 14:00 Dextrose (Dextrose 50%) 25 ml Q30M PRN IV Hypoglycemia 09/17/18 19:00 10/17/18 09:59 Dextrose (Dextrose 50%) 50 ml Q30M PRN IV Hypoglycemia 09/17/18 19:00 10/17/18 09:59 Insulin Aspart (NovoLOG) Q6HR SUBQ 09/18/18 00:00 10/17/18 11:59 09/19/18 06:28 Insulin Aspart (NovoLOG) 5 units BEFORE MEALS SUBQ 09/19/18 11:30 10/17/18 11:29 Insulin Detemir (Levemir) 15 units DAILY SUBQ 09/19/18 09:00 10/17/18 10:59 09/19/18 09:26 Iopamidol (Isovue-300 100ml) 100 ml NOW PRN INJ Radiology Procedure 09/18/18 17:30 09/20/18 17:26 Magnesium Sulfate 100 ml @ 100 mls/hr Q1H IVPB 09/19/18 10:00 09/19/18 11:59 09/19/18 09:23 Pantoprazole (Protonix) 40 mg DAILY IVP 09/18/18 09:00 10/15/18 08:59 09/19/18 09:23 Potassium Phosphate 30 mm/ Sodium Chloride 285 ml @ 47.5 mls/hr ONCE ONCE IV 09/19/18 10:00 09/19/18 15:59 Sodium Chloride 1,000 ml @ 100 mls/hr Q10H IV 09/17/18 19:00 10/15/18 04:14 09/18/18 23:06 Ashish Stevens MD Sep 19, 2018 11:00"
[2018-09-19 12:00] VITALS: BP 110/70
[2018-09-19] MEDS: cefTRIAXone 1 GM in D5W 55 ML IVPB SCH (12:26)
[2018-09-19] MEDS: Vancomycin 1250mg/D5W 250ml IVPB SCH (13:48)
--- NOTE | 2018-09-19 14:15 | Pulmonology Progress Note ---
Assessment/Plan Assessment/Plan Pulmonary Progress Note Assessment/Plan IMPRESSION: 1. Diabetic ketoacidosis. 2. Alcoholic liver cirrhosis. 3. Groin abscess? DISCUSSION: Abx per ID Insulin and diabetes control Will consult surgery for abscess Subjective Interval Events: Feeling better; still has pain in left groin Constitutional: Reports: no symptoms HEENT: Repors: no symptoms Respiratory: Reports: no symptoms Cardiovascular: Reports: no symptoms Gastrointestinal/Abdominal: Reports: no symptoms Genitourinary: Reports: no symptoms Neurologic: Reports: no symptoms Allergies: Coded Allergies: No Known Allergies (Unverified , 12/08/17) Objective Vital Signs Noted General Appearance: no acute distress HEENT: normocephalic Respiratory/Chest: chest wall non-tender, lungs clear Cardiovascular: normal peripheral pulses, normal rate Abdomen: normal bowel sounds Genitourinary: other - has painful swelling left groin Laboratory Tests 09/18/18 06:40: Sodium Level 133L, Potassium Level 3.6, Chloride Level 104, Carbon Dioxide Level 17L, Anion Gap 12, Blood Urea Nitrogen 4L, Creatinine 0.8, Estimat Glomerular Filtration Rate > 60, Glucose Level 147H, Calcium Level 8.0L Current Medications Medications (Trade) Dose Ordered Sig/Jl Route PRN Reason Start Time Stop Time Status Last Admin Dose Admin Acetaminophen (Tylenol) 650 mg Q4H PRN ORAL Mild Pain/Temp > 100.5 09/17/18 21:00 10/15/18 12:59 09/18/18 08:19 Ceftriaxone Sodium 1 gm/ Dextrose 55 ml @ 110 mls/hr Q24H IVPB 09/18/18 12:00 09/24/18 11:59 Dextrose (Dextrose 50%) 25 ml Q30M PRN IV Hypoglycemia 09/17/18 19:00 10/17/18 09:59 Dextrose (Dextrose 50%) 50 ml Q30M PRN IV Hypoglycemia 09/17/18 19:00 10/17/18 09:59 Insulin Aspart (NovoLOG) Q6HR SUBQ 09/18/18 00:00 10/17/18 11:59 Insulin Aspart (NovoLOG) 8 units BEFORE MEALS SUBQ 09/18/18 06:30 10/17/18 11:29 09/18/18 06:15 Insulin Detemir (Levemir) 25 units Q12HR SUBQ 09/17/18 21:00 10/17/18 10:59 09/18/18 08:21 Pantoprazole (Protonix) 40 mg DAILY IVP 09/18/18 09:00 10/15/18 08:59 09/18/18 08:18 Sodium Chloride 1,000 ml @ 100 mls/hr Q10H IV 09/17/18 19:00 10/15/18 04:14 09/18/18 06:00 Subjective ROS Limited/Unobtainable: No Allergies: Coded Allergies: No Known Allergies (Unverified , 12/08/17) Objective Last 24 Hour Vital Signs Date Time Temp Pulse Resp B/P (MAP) Pulse Ox O2 Delivery O2 Flow Rate FiO2 09/19/18 12:00 97.5 80 17 110/70 (83) 97 09/19/18 09:00 Room Air 09/19/18 08:00 97.2 102 17 102/66 (78) 96 102 09/19/18 04:00 98.8 99 18 112/74 (87) 97 09/19/18 00:00 98.0 109 18 112/76 (88) 98 09/18/18 21:00 Room Air 09/18/18 20:00 98.0 94 18 97/62 (74) 98 09/18/18 16:00 98.8 92 18 107/66 (80) 99 09/18/18 14:29 97.9 94 20 110/64 (79) 100 09/18/18 14:29 97.9 Intake and Output 09/18/18 09/19/18 19:00 07:00 Intake Total 1420 ml 1800 ml Balance 1420 ml 1800 ml Intake Oral 520 ml 600 ml IV Total 900 ml 1200 ml # Voids 3 1 Laboratory Tests 09/19/18 05:45: Sodium Level 135L, Potassium Level 3.2L, Chloride Level 105, Carbon Dioxide Level 19L, Anion Gap 12, Blood Urea Nitrogen 4L, Creatinine 0.7, Estimat Glomerular Filtration Rate > 60, Glucose Level 113H, Calcium Level 7.8L, Phosphorus Level 1.9L, Magnesium Level 1.4L Current Medications Medications (Trade) Dose Ordered Sig/Jl Route PRN Reason Start Time Stop Time Status Last Admin Dose Admin Acetaminophen (Tylenol) 650 mg Q4H PRN ORAL Mild Pain/Temp > 100.5 09/17/18 21:00 12/27/18 12:59 09/19/18 01:39 Ceftriaxone Sodium 1 gm/ Dextrose 55 ml @ 110 mls/hr Q24H IVPB 09/18/18 12:00 09/24/18 11:59 09/19/18 12:26 Dextrose (Dextrose 50%) 25 ml Q30M PRN IV Hypoglycemia 09/17/18 19:00 10/17/18 09:59 Dextrose (Dextrose 50%) 50 ml Q30M PRN IV Hypoglycemia 09/17/18 19:00 10/17/18 09:59 Insulin Aspart (NovoLOG) Q6HR SUBQ 09/18/18 00:00 10/17/18 11:59 09/19/18 12:25 Insulin Aspart (NovoLOG) 5 units BEFORE MEALS SUBQ 09/19/18 11:30 10/17/18 11:29 09/19/18 12:24 Insulin Detemir (Levemir) 15 units DAILY SUBQ 09/19/18 09:00 10/17/18 10:59 09/19/18 09:26 Iopamidol (Isovue-300 100ml) 100 ml NOW PRN INJ Radiology Procedure 09/18/18 17:30 09/20/18 17:26 Pantoprazole (Protonix) 40 mg DAILY IVP 09/18/18 09:00 10/15/18 08:59 09/19/18 09:23 Potassium Phosphate 30 mm/ Sodium Chloride 285 ml @ 47.5 mls/hr ONCE ONCE IV 09/19/18 10:00 09/19/18 15:59 09/19/18 11:08 Sodium Chloride 1,000 ml @ 100 mls/hr Q10H IV 09/17/18 19:00 10/15/18 04:14 09/19/18 11:08 Vancomycin HCl (Vanco rx to dose) 1 ea DAILY PRN MISC Per rx protocol 09/19/18 11:00 10/19/18 10:59 Vancomycin HCl/ Dextrose 250 ml @ 166.667 mls/hr Q12H IVPB 09/19/18 12:30 09/24/18 12:29 09/19/18 13:48 Meño Decker MD Sep 19, 2018 14:15
--- NOTE | 2018-09-19 15:16 | Operative Note - PDOC ---
Operative Note Operative Note Date of Operation/Procedure: Sep 19, 2018 Pre-op Diagnosis: left groin abscess Procedure: incision and drainage of left groin abscess Post-op Diagnosis: same as pre-op Surgeon: jose Anesthesia: local Specimen: yes Complications: none Condition: stable Estimated Blood Loss: volume - 25 Drains: none Packing: yes Implant(s) used?: No Indications for Procedure 42M with left groin pain just at pubis level. noted for 5 days. progressively worsening. US with likely abscess. I&D recommended and indicated. Consent obtained from patient for bedside procedure. Description of Procedure left groin prepped and draped in standard surgical fashion. all appropriate procedure equipment obtained and worn. 1%lido with epi infiltrated in proposed skin incision site. #11 scalpel used to make a 2cm incision at area of greatest fluctuance. 20cc of pus evacuated. cultures taken. wound irrigated with sterile saline. wound packed and dressings applied. required change of dressings soon after from oozing. hx of bleeding given medical history. packing changed and pressure held for 20 mins. hemostasis noted. patient tolerated well. Giovanni Oh Sep 19, 2018 15:16
[2018-09-19] MEDS ORDERED: Tubing IV Secondary IV ONE (16:02)
[2018-09-19 16:29] VITALS: BP 118/77
[2018-09-19] MEDS ORDERED: HYDROmorphone 1mg/ml Carpuject IVP SCH (16:43)
[2018-09-19] MEDS ORDERED: Lidocaine 1% 10mg/ml/Epi 0.005mg/ml 30ml vial INJ SCH (17:00)
--- NOTE | 2018-09-19 17:23 | General Progress Note ---
Progress Note Progress Note Surgery: called to evaluate for bleeding. dressings noted to be saturated. no significant bleeding noted once dressings removed. wound clean with packing. packing removed. mild oozing from distal incision skin site. 1x 2-0 prolene placed for hemostasis. wound repacked. dressings applied. monitored for 30 mins and no bleeding noted will cont monitor change dressings prn saturation am labs thank you Giovanni Oh Sep 19, 2018 17:23
[2018-09-19] MEDS ORDERED: Hydromorphone 0.5mg/0.5ml inj IVP PRN (17:31)
[2018-09-19 20:00] VITALS: BP 118/77
[2018-09-20] VITALS: BP 111/72
[2018-09-20] MEDS: NovoLOG Insulin Flexpen SUBQ SCH ×7 (00:28→17:33)
[2018-09-20] MEDS: Vancomycin 1250mg/D5W 250ml IVPB SCH ×2 (01:57→12:33)
[2018-09-20 04:00] VITALS: BP 112/76
--- NOTE | 2018-09-20 07:06 | General Progress Note ---
Assessment/Plan Problem List: (1) Diabetes mellitus out of control ICD Codes: E11.65 - Type 2 diabetes mellitus with hyperglycemia SNOMED: 07288039, 348265430 (2) DKA (diabetic ketoacidosis) ICD Codes: E13.10 - Other specified diabetes mellitus with ketoacidosis without coma SNOMED: 012197510, [id number] Qualifiers: Qualified Codes: E13.10 - Other specified diabetes mellitus with ketoacidosis without coma (3) Alcoholic cirrhosis of liver ICD Codes: K70.30 - Alcoholic cirrhosis of liver without ascites SNOMED: 822330907, 625480207 Qualifiers: Qualified Codes: K70.30 - Alcoholic cirrhosis of liver without ascites (4) Abscess or cellulitis of groin SNOMED: 674586743 Assessment/Plan continue Levemir 15 units daily continue Novolog 5 units ac tid continue NISS he will stay on insulin after discharge Subjective Allergies: Coded Allergies: No Known Allergies (Unverified , 12/08/17) All Systems: reviewed and negative except above Subjective status post groin abscess I/D yesterday glucose values are stable w/o hypoglycemia Objective Last 24 Hour Vital Signs Date Time Temp Pulse Resp B/P (MAP) Pulse Ox O2 Delivery O2 Flow Rate FiO2 09/20/18 04:00 97.5 105 18 112/76 (88) 98 09/20/18 00:59 97.0 09/20/18 00:00 97.3 101 20 111/72 (85) 98 09/19/18 21:00 Room Air 09/19/18 20:00 97.0 104 18 118/77 (91) 95 09/19/18 16:29 98.3 100 18 118/77 (91) 98 09/19/18 12:00 97.5 80 17 110/70 (83) 97 09/19/18 09:00 Room Air 09/19/18 08:00 97.2 102 17 102/66 (78) 96 102 Intake and Output 09/19/18 09/20/18 19:00 07:00 Intake Total 1025.000 ml 250.000 ml Balance 1025.000 ml 250.000 ml Intake Oral 720 ml IV Total 305.000 ml 250.000 ml # Voids 1 3 Laboratory Tests 09/20/18 06:20: White Blood Count [Pending], Red Blood Count [Pending], Hemoglobin [Pending], Hematocrit [Pending], Mean Corpuscular Volume [Pending], Mean Corpuscular Hemoglobin [Pending], Mean Corpuscular Hemoglobin Concent [Pending], Red Cell Distribution Width [Pending], Platelet Count [Pending], Mean Platelet Volume [ Pending], Neutrophils (%) (Auto) [Pending], Lymphocytes (%) (Auto) [Pending], Monocytes (%) (Auto) [Pending], Eosinophils (%) (Auto) [Pending], Basophils (%) (Auto) [Pending], Prothrombin Time [Pending], Prothromb Time International Ratio [Pending], Activated Partial Thromboplast Time [Pending], Sodium Level [ Pending], Potassium Level [Pending], Chloride Level [Pending], Carbon Dioxide Level [Pending], Blood Urea Nitrogen [Pending], Creatinine [Pending], Estimat Glomerular Filtration Rate [Pending], Glucose Level [Pending], Calcium Level [ Pending] Height (Feet): 5 Height (Inches): 5.00 Weight (Pounds): 155 General Appearance: no apparent distress Neck: normal alignment Cardiovascular: normal rate Respiratory/Chest: lungs clear Abdomen: normal bowel sounds Pelvis: normal external exam Objective Current Medications Medications (Trade) Dose Ordered Sig/Jl Route PRN Reason Start Time Stop Time Status Last Admin Dose Admin Ceftriaxone Sodium 1 gm/ Dextrose 55 ml @ 110 mls/hr Q24H IVPB 09/18/18 12:00 09/24/18 11:59 09/19/18 12:26 Dextrose (Dextrose 50%) 25 ml Q30M PRN IV Hypoglycemia 09/17/18 19:00 10/17/18 09:59 Dextrose (Dextrose 50%) 50 ml Q30M PRN IV Hypoglycemia 09/17/18 19:00 10/17/18 09:59 Hydromorphone HCl (Dilaudid) 0.5 mg Q4H PRN IVP For Pain 09/19/18 17:31 09/26/18 17:30 09/20/18 00:29 Insulin Aspart (NovoLOG) Q6HR SUBQ 09/18/18 00:00 10/17/18 11:59 09/20/18 06:26 Insulin Aspart (NovoLOG) 5 units BEFORE MEALS SUBQ 09/19/18 11:30 10/17/18 11:29 09/20/18 06:25 Insulin Detemir (Levemir) 15 units DAILY SUBQ 09/19/18 09:00 10/17/18 10:59 09/19/18 09:26 Iopamidol (Isovue-300 100ml) 100 ml NOW PRN INJ Radiology Procedure 09/18/18 17:30 09/20/18 17:26 Vancomycin HCl (Vanco rx to dose) 1 ea DAILY PRN MISC Per rx protocol 09/19/18 11:00 10/19/18 10:59 Vancomycin HCl/ Dextrose 250 ml @ 166.667 mls/hr Q12H IVPB 09/19/18 12:30 09/24/18 12:29 09/20/18 01:57 Item Value Date Time Bedside Blood Glucose 183 mg/dl H 09/20/18 0626 Bedside Blood Glucose 190 mg/dl H 09/20/18 0028 Bedside Blood Glucose 184 mg/dl H 09/19/18 1800 Bedside Blood Glucose 154 mg/dl H 09/19/18 1225 Bedside Blood Glucose 121 mg/dl H 09/19/18 0926 Bedside Blood Glucose 124 mg/dl H 09/19/18 0628 Aaron Salvador MD Sep 20, 2018 07:06
[2018-09-20 07:26] LABS: HEMATOCRIT 21.7 % (42.0-52.0); MEAN CORPUSCULAR VOLUME 79 FL (80-99); PLATELET COUNT 77 K/UL (150-450); RED BLOOD COUNT 2.75 M/UL (4.70-6.10); RED CELL DISTRIBUTION WIDTH 17.2 % (11.6-14.8); WHITE BLOOD COUNT 7.8 K/UL (4.8-10.8)
[2018-09-20 07:33] LABS: ANION GAP 11 mmol/L (5-15); BLOOD UREA NITROGEN 5 mg/dL (7-18); CALCIUM 8.3 MG/DL (8.5-10.1); CARBON DIOXIDE 18 MMOL/L (21-32); CHLORIDE 105 MMOL/L (98-107); CREATININE 0.8 MG/DL (0.55-1.30); POTASSIUM 3.4 MMOL/L (3.5-5.1); SODIUM 134 MMOL/L (136-145)
[2018-09-20 07:42] LABS: INR 1.4 (0.9-1.1)
[2018-09-20 08:00] VITALS: BP 101/67
[2018-09-20] MEDS: Levemir Flexpen SUBQ SCH (08:31)
--- NOTE | 2018-09-20 10:14 | Nephrology Progress Note ---
Assessment/Plan Assessment/Plan A/P 1) [place]- resolved 2) E- ABN - replacing K+ today 3) Dehydration- resolved 4) DKA- resolved 5) Left groin swelling- - multiloculated left groin abscess drained - Abx per ID Subjective Date patient seen: Sep 20, 2018 Time patient seen: 10:13 ROS Limited/Unobtainable: No Allergies: Coded Allergies: No Known Allergies (Unverified , 12/08/17) Subjective Patient feels better, abscess drained Objective Last 24 Hour Vital Signs Date Time Temp Pulse Resp B/P (MAP) Pulse Ox O2 Delivery O2 Flow Rate FiO2 09/20/18 08:00 98.0 108 18 101/67 (78) 97 09/20/18 04:00 97.5 105 18 112/76 (88) 98 09/20/18 00:59 97.0 09/20/18 00:00 97.3 101 20 111/72 (85) 98 09/19/18 21:00 Room Air 09/19/18 20:00 97.0 104 18 118/77 (91) 95 09/19/18 16:29 98.3 100 18 118/77 (91) 98 09/19/18 12:00 97.5 80 17 110/70 (83) 97 Intake and Output 09/19/18 09/20/18 19:00 07:00 Intake Total 1025.000 ml 250.000 ml Balance 1025.000 ml 250.000 ml Intake Oral 720 ml IV Total 305.000 ml 250.000 ml # Voids 1 3 Laboratory Tests 09/20/18 06:20: White Blood Count 7.8, Red Blood Count 2.75L, Hemoglobin 7.0L, Hematocrit 21.7L , Mean Corpuscular Volume 79L, Mean Corpuscular Hemoglobin 25.4L, Mean Corpuscular Hemoglobin Concent 32.1, Red Cell Distribution Width 17.2H, Platelet Count 77L, Mean Platelet Volume 6.9, Neutrophils (%) (Auto) , Lymphocytes (%) (Auto) , Monocytes (%) (Auto) , Eosinophils (%) (Auto) , Basophils (%) (Auto) , Differential Total Cells Counted 100, Neutrophils % ( Manual) 44L, Lymphocytes % (Manual) 36, Monocytes % (Manual) 16H, Eosinophils % (Manual) 3, Basophils % (Manual) 0, Band Neutrophils 1, Platelet Estimate DecreasedL, Platelet Morphology Normal, Polychromasia 1+, Hypochromasia 3+, Anisocytosis 2+, Target Cells Rare, Prothrombin Time 14.9H, Prothromb Time International Ratio 1.4H, Activated Partial Thromboplast Time 34H, Sodium Level 134L, Potassium Level 3.4L, Chloride Level 105, Carbon Dioxide Level 18L, Anion Gap 11, Blood Urea Nitrogen 5L, Creatinine 0.8, Estimat Glomerular Filtration Rate > 60, Glucose Level 184H, Calcium Level 8.3L Height (Feet): 5 Height (Inches): 5.00 Weight (Pounds): 155 General Appearance: no apparent distress, alert EENT: normal ENT inspection Neck: normal alignment, supple Cardiovascular: normal rate, regular rhythm Respiratory/Chest: lungs clear, normal breath sounds Abdomen: non tender, soft Edema: no edema noted Arm (L), no edema noted Arm (R), no edema noted Leg (L), no edema noted Leg (R), no edema noted Pedal (L), no edema noted Pedal (R), no edema noted Generalized Mau Malone MD Sep 20, 2018 10:14
[2018-09-20] MEDS: cefTRIAXone 1 GM in D5W 55 ML IVPB SCH (11:46)
--- NOTE | 2018-09-20 11:58 | Pulmonology Progress Note ---
Assessment/Plan Assessment/Plan Pulmonary Progress Note Assessment/Plan IMPRESSION: 1. Diabetic ketoacidosis. 2. Alcoholic liver cirrhosis. 3. Groin abscess s/p I+D DISCUSSION: Abx per ID Insulin and diabetes control Follow labs Suppl K PRBC if HB <7 Subjective Interval Events: Feeling better; still has pain in left groin Constitutional: Reports: no symptoms HEENT: Repors: no symptoms Respiratory: Reports: no symptoms Cardiovascular: Reports: no symptoms Gastrointestinal/Abdominal: Reports: no symptoms Genitourinary: Reports: no symptoms Neurologic: Reports: no symptoms Allergies: Coded Allergies: No Known Allergies (Unverified , 12/08/17) Objective Vital Signs Noted General Appearance: no acute distress HEENT: normocephalic Respiratory/Chest: chest wall non-tender, lungs clear Cardiovascular: normal peripheral pulses, normal rate Abdomen: normal bowel sounds Genitourinary: other - has painful swelling left groin Laboratory Tests 09/18/18 06:40: Sodium Level 133L, Potassium Level 3.6, Chloride Level 104, Carbon Dioxide Level 17L, Anion Gap 12, Blood Urea Nitrogen 4L, Creatinine 0.8, Estimat Glomerular Filtration Rate > 60, Glucose Level 147H, Calcium Level 8.0L Current Medications Medications (Trade) Dose Ordered Sig/Jl Route PRN Reason Start Time Stop Time Status Last Admin Dose Admin Acetaminophen (Tylenol) 650 mg Q4H PRN ORAL Mild Pain/Temp > 100.5 09/17/18 21:00 10/15/18 12:59 09/18/18 08:19 Ceftriaxone Sodium 1 gm/ Dextrose 55 ml @ 110 mls/hr Q24H IVPB 09/18/18 12:00 09/24/18 11:59 Dextrose (Dextrose 50%) 25 ml Q30M PRN IV Hypoglycemia 09/17/18 19:00 10/17/18 09:59 Dextrose (Dextrose 50%) 50 ml Q30M PRN IV Hypoglycemia 09/17/18 19:00 10/17/18 09:59 Insulin Aspart (NovoLOG) Q6HR SUBQ 09/18/18 00:00 10/17/18 11:59 Insulin Aspart (NovoLOG) 8 units BEFORE MEALS SUBQ 09/18/18 06:30 10/17/18 11:29 09/18/18 06:15 Insulin Detemir (Levemir) 25 units Q12HR SUBQ 09/17/18 21:00 10/17/18 10:59 09/18/18 08:21 Pantoprazole (Protonix) 40 mg DAILY IVP 09/18/18 09:00 10/15/18 08:59 09/18/18 08:18 Sodium Chloride 1,000 ml @ 100 mls/hr Q10H IV 09/17/18 19:00 10/15/18 04:14 09/18/18 06:00 Subjective ROS Limited/Unobtainable: No Allergies: Coded Allergies: No Known Allergies (Unverified , 12/08/17) Objective Last 24 Hour Vital Signs Date Time Temp Pulse Resp B/P (MAP) Pulse Ox O2 Delivery O2 Flow Rate FiO2 09/20/18 09:00 Room Air 09/20/18 08:00 98.0 108 18 101/67 (78) 97 09/20/18 04:00 97.5 105 18 112/76 (88) 98 09/20/18 00:59 97.0 09/20/18 00:00 97.3 101 20 111/72 (85) 98 09/19/18 21:00 Room Air 09/19/18 20:00 97.0 104 18 118/77 (91) 95 09/19/18 16:29 98.3 100 18 118/77 (91) 98 09/19/18 12:00 97.5 80 17 110/70 (83) 97 Intake and Output 09/19/18 09/20/18 19:00 07:00 Intake Total 1025.000 ml 250.000 ml Balance 1025.000 ml 250.000 ml Intake Oral 720 ml IV Total 305.000 ml 250.000 ml # Voids 1 3 Microbiology Date/Time Source Procedure Growth Status 09/19/18 14:00 Body Fluid Gram Stain - Final Resulted 09/19/18 14:00 Body Fluid Wound Culture Pending Resulted Laboratory Tests 09/20/18 06:20: White Blood Count 7.8, Red Blood Count 2.75L, Hemoglobin 7.0L, Hematocrit 21.7L , Mean Corpuscular Volume 79L, Mean Corpuscular Hemoglobin 25.4L, Mean Corpuscular Hemoglobin Concent 32.1, Red Cell Distribution Width 17.2H, Platelet Count 77L, Mean Platelet Volume 6.9, Neutrophils (%) (Auto) , Lymphocytes (%) (Auto) , Monocytes (%) (Auto) , Eosinophils (%) (Auto) , Basophils (%) (Auto) , Differential Total Cells Counted 100, Neutrophils % ( Manual) 44L, Lymphocytes % (Manual) 36, Monocytes % (Manual) 16H, Eosinophils % (Manual) 3, Basophils % (Manual) 0, Band Neutrophils 1, Platelet Estimate DecreasedL, Platelet Morphology Normal, Polychromasia 1+, Hypochromasia 3+, Anisocytosis 2+, Target Cells Rare, Prothrombin Time 14.9H, Prothromb Time International Ratio 1.4H, Activated Partial Thromboplast Time 34H, Sodium Level 134L, Potassium Level 3.4L, Chloride Level 105, Carbon Dioxide Level 18L, Anion Gap 11, Blood Urea Nitrogen 5L, Creatinine 0.8, Estimat Glomerular Filtration Rate > 60, Glucose Level 184H, Calcium Level 8.3L Current Medications Medications (Trade) Dose Ordered Sig/Jl Route PRN Reason Start Time Stop Time Status Last Admin Dose Admin Ceftriaxone Sodium 1 gm/ Dextrose 55 ml @ 110 mls/hr Q24H IVPB 09/18/18 12:00 09/24/18 11:59 09/20/18 11:46 Dextrose (Dextrose 50%) 25 ml Q30M PRN IV Hypoglycemia 09/17/18 19:00 10/17/18 09:59 Dextrose (Dextrose 50%) 50 ml Q30M PRN IV Hypoglycemia 09/17/18 19:00 10/17/18 09:59 Hydromorphone HCl (Dilaudid) 0.5 mg Q4H PRN IVP For Pain 09/19/18 17:31 09/26/18 17:30 09/20/18 00:29 Insulin Aspart (NovoLOG) Q6HR SUBQ 09/18/18 00:00 10/17/18 11:59 09/20/18 06:26 Insulin Aspart (NovoLOG) 5 units BEFORE MEALS SUBQ 09/19/18 11:30 10/17/18 11:29 09/20/18 06:25 Insulin Detemir (Levemir) 15 units DAILY SUBQ 09/19/18 09:00 10/17/18 10:59 09/20/18 08:31 Iopamidol (Isovue-300 100ml) 100 ml NOW PRN INJ Radiology Procedure 09/18/18 17:30 09/20/18 17:26 Potassium Chloride (K-Dur) 40 meq ONCE ORAL 09/20/18 11:00 09/20/18 12:00 09/20/18 11:46 Vancomycin HCl (Vanco rx to dose) 1 ea DAILY PRN MISC Per rx protocol 09/19/18 11:00 10/19/18 10:59 Vancomycin HCl/ Dextrose 250 ml @ 166.667 mls/hr Q12H IVPB 09/19/18 12:30 09/24/18 12:29 09/20/18 01:57 Meño Decker MD Sep 20, 2018 11:58
[2018-09-20 12:44] VITALS: BP 97/62
--- NOTE | 2018-09-20 13:35 | Infectious Diseases Prog Note ---
Assessment/Plan Assessment/Plan A; Sepsis E. coli UTI DKA Hypokalemia Left inguinal Abscess s/p I &D Alcoholic cirrhosis P; Change Vancomycin & Rocephin Will f/u wound culture Subjective ROS Limited/Unobtainable: No Constitutional: Reports: no symptoms Respiratory: Reports: no symptoms Cardiovascular: Reports: no symptoms Gastrointestinal/Abdominal: Reports: no symptoms Genitourinary: Reports: no symptoms Musculoskeletal: Reports: pain, other - mild pain in surgical site Allergies: Coded Allergies: No Known Allergies (Unverified , 12/08/17) Objective Vital Signs Last 24 Hour Vital Signs Date Time Temp Pulse Resp B/P (MAP) Pulse Ox O2 Delivery O2 Flow Rate FiO2 09/20/18 12:44 96.5 104 17 97/62 (74) 98 09/20/18 09:00 Room Air 09/20/18 08:00 98.0 108 18 101/67 (78) 97 09/20/18 04:00 97.5 105 18 112/76 (88) 98 09/20/18 00:59 97.0 09/20/18 00:00 97.3 101 20 111/72 (85) 98 09/19/18 21:00 Room Air 09/19/18 20:00 97.0 104 18 118/77 (91) 95 09/19/18 16:29 98.3 100 18 118/77 (91) 98 Height (Feet): 5 Height (Inches): 5.00 Weight (Pounds): 155 General Appearance: no acute distress HEENT: other - yellowish sclera Respiratory/Chest: lungs clear Cardiovascular: normal rate Abdomen: soft, non tender Genitourinary: other - left groin dressing Extremities: no edema Neurologic/Psychiatric: alert, oriented x 3, responsive Microbiology Date/Time Source Procedure Growth Status 09/19/18 14:00 Body Fluid Gram Stain - Final Resulted 09/19/18 14:00 Body Fluid Wound Culture Pending Resulted Laboratory Tests Test 09/20/18 06:20 White Blood Count 7.8 K/UL (4.8-10.8) Red Blood Count 2.75 M/UL (4.70-6.10) L Hemoglobin 7.0 G/DL (14.2-18.0) L Hematocrit 21.7 % (42.0-52.0) L Mean Corpuscular Volume 79 FL (80-99) L Mean Corpuscular Hemoglobin 25.4 PG (27.0-31.0) L Mean Corpuscular Hemoglobin Concent 32.1 G/DL (32.0-36.0) Red Cell Distribution Width 17.2 % (11.6-14.8) H Platelet Count 77 K/UL (150-450) L Mean Platelet Volume 6.9 FL (6.5-10.1) Neutrophils (%) (Auto) % (45.0-75.0) Lymphocytes (%) (Auto) % (20.0-45.0) Monocytes (%) (Auto) % (1.0-10.0) Eosinophils (%) (Auto) % (0.0-3.0) Basophils (%) (Auto) % (0.0-2.0) Differential Total Cells Counted 100 Neutrophils % (Manual) 44 % (45-75) L Lymphocytes % (Manual) 36 % (20-45) Monocytes % (Manual) 16 % (1-10) H Eosinophils % (Manual) 3 % (0-3) Basophils % (Manual) 0 % (0-2) Band Neutrophils 1 % (0-8) Platelet Estimate Decreased L Platelet Morphology Normal Polychromasia 1+ Hypochromasia 3+ Anisocytosis 2+ Target Cells Rare Prothrombin Time 14.9 SEC (9.30-11.50) H Prothromb Time International Ratio 1.4 (0.9-1.1) H Activated Partial Thromboplast Time 34 SEC (23-33) H Sodium Level 134 MMOL/L (136-145) L Potassium Level 3.4 MMOL/L (3.5-5.1) L Chloride Level 105 MMOL/L (98-107) Carbon Dioxide Level 18 MMOL/L (21-32) L Anion Gap 11 mmol/L (5-15) Blood Urea Nitrogen 5 mg/dL (7-18) L Creatinine 0.8 MG/DL (0.55-1.30) Estimat Glomerular Filtration Rate > 60 mL/min (>60) Glucose Level 184 MG/DL (74-106) H Calcium Level 8.3 MG/DL (8.5-10.1) L Current Medications Medications (Trade) Dose Ordered Sig/Jl Route PRN Reason Start Time Stop Time Status Last Admin Dose Admin Ceftriaxone Sodium 1 gm/ Dextrose 55 ml @ 110 mls/hr Q24H IVPB 09/18/18 12:00 09/24/18 11:59 09/20/18 11:46 Dextrose (Dextrose 50%) 25 ml Q30M PRN IV Hypoglycemia 09/17/18 19:00 10/17/18 09:59 Dextrose (Dextrose 50%) 50 ml Q30M PRN IV Hypoglycemia 09/17/18 19:00 10/17/18 09:59 Hydromorphone HCl (Dilaudid) 0.5 mg Q4H PRN IVP For Pain 09/19/18 17:31 09/26/18 17:30 09/20/18 00:29 Insulin Aspart (NovoLOG) Q6HR SUBQ 09/18/18 00:00 10/17/18 11:59 09/20/18 12:34 Insulin Aspart (NovoLOG) 5 units BEFORE MEALS SUBQ 09/19/18 11:30 10/17/18 11:29 09/20/18 12:33 Insulin Detemir (Levemir) 15 units DAILY SUBQ 09/19/18 09:00 10/17/18 10:59 09/20/18 08:31 Iopamidol (Isovue-300 100ml) 100 ml NOW PRN INJ Radiology Procedure 09/18/18 17:30 09/20/18 17:26 Vancomycin HCl (Vanco rx to dose) 1 ea DAILY PRN MISC Per rx protocol 09/19/18 11:00 10/19/18 10:59 Vancomycin HCl/ Dextrose 250 ml @ 166.667 mls/hr Q12H IVPB 09/19/18 12:30 09/24/18 12:29 09/20/18 12:33 Holger Fish MD Sep 20, 2018 13:35
--- NOTE | 2018-09-20 13:50 | General Surgery Progress Note ---
General Surgery-Progress Note Subjective Procedure Performed incision and drainage of left groin abscess Additional Comments doing well. no complaints. pain improved. no n/v/f/c. labs okay. h/h anemia. dressings dry Objective Last 24 Hour Vital Signs Date Time Temp Pulse Resp B/P (MAP) Pulse Ox O2 Delivery O2 Flow Rate FiO2 09/20/18 12:44 96.5 104 17 97/62 (74) 98 09/20/18 09:00 Room Air 09/20/18 08:00 98.0 108 18 101/67 (78) 97 09/20/18 04:00 97.5 105 18 112/76 (88) 98 09/20/18 00:59 97.0 09/20/18 00:00 97.3 101 20 111/72 (85) 98 09/19/18 21:00 Room Air 09/19/18 20:00 97.0 104 18 118/77 (91) 95 09/19/18 16:29 98.3 100 18 118/77 (91) 98 I&O Intake and Output 09/19/18 09/20/18 19:00 07:00 Intake Total 1025.000 ml 250.000 ml Balance 1025.000 ml 250.000 ml Intake Oral 720 ml IV Total 305.000 ml 250.000 ml # Voids 1 3 Dressing: dry Wound: clean, dry Drains: none Cardiovascular: RSR Respiratory: clear Abdomen: soft, flat, non-tender, present bowel sounds Extremities: no edema, no tenderness, no cyanosis Laboratory Tests Test 09/20/18 06:20 White Blood Count 7.8 K/UL (4.8-10.8) Red Blood Count 2.75 M/UL (4.70-6.10) L Hemoglobin 7.0 G/DL (14.2-18.0) L Hematocrit 21.7 % (42.0-52.0) L Mean Corpuscular Volume 79 FL (80-99) L Mean Corpuscular Hemoglobin 25.4 PG (27.0-31.0) L Mean Corpuscular Hemoglobin Concent 32.1 G/DL (32.0-36.0) Red Cell Distribution Width 17.2 % (11.6-14.8) H Platelet Count 77 K/UL (150-450) L Mean Platelet Volume 6.9 FL (6.5-10.1) Neutrophils (%) (Auto) % (45.0-75.0) Lymphocytes (%) (Auto) % (20.0-45.0) Monocytes (%) (Auto) % (1.0-10.0) Eosinophils (%) (Auto) % (0.0-3.0) Basophils (%) (Auto) % (0.0-2.0) Differential Total Cells Counted 100 Neutrophils % (Manual) 44 % (45-75) L Lymphocytes % (Manual) 36 % (20-45) Monocytes % (Manual) 16 % (1-10) H Eosinophils % (Manual) 3 % (0-3) Basophils % (Manual) 0 % (0-2) Band Neutrophils 1 % (0-8) Platelet Estimate Decreased L Platelet Morphology Normal Polychromasia 1+ Hypochromasia 3+ Anisocytosis 2+ Target Cells Rare Prothrombin Time 14.9 SEC (9.30-11.50) H Prothromb Time International Ratio 1.4 (0.9-1.1) H Activated Partial Thromboplast Time 34 SEC (23-33) H Sodium Level 134 MMOL/L (136-145) L Potassium Level 3.4 MMOL/L (3.5-5.1) L Chloride Level 105 MMOL/L (98-107) Carbon Dioxide Level 18 MMOL/L (21-32) L Anion Gap 11 mmol/L (5-15) Blood Urea Nitrogen 5 mg/dL (7-18) L Creatinine 0.8 MG/DL (0.55-1.30) Estimat Glomerular Filtration Rate > 60 mL/min (>60) Glucose Level 184 MG/DL (74-106) H Calcium Level 8.3 MG/DL (8.5-10.1) L Plan Problems: (1) Abscess or cellulitis of groin (2) Cellulitis of groin Assessment & Plan: leukocytosis on admission area of induration on exam in left groin old area of healing induration on right inguinal/femoral region ultrasound noted currently stable developed abscess with fluctuance yesterday. s/p I&D. had some oozing and saturation of dressings after I&D requiring single stitch placement for hemostasis. since hemostatic and improved. patient states pain improved. packing and dressings removed today. wound clean and dry no bleeding. no more pus noted new packing and dressings applied. cont with current care d/c planning thank you. will follow with recs Additional Comments Anemia transfuse 1 unit prbc Giovanni Oh Sep 20, 2018 13:50
[2018-09-20 16:00] VITALS: BP 99/61
[2018-09-20 20:00] VITALS: BP 103/64
[2018-09-21] VITALS: BP 102/64
[2018-09-21] MEDS: Vancomycin 1250mg/D5W 250ml IVPB SCH (00:29)
[2018-09-21] MEDS: NovoLOG Insulin Flexpen SUBQ SCH ×4 (00:36→12:56)
[2018-09-21 04:00] VITALS: BP 99/59
--- NOTE | 2018-09-21 07:19 | General Progress Note ---
Assessment/Plan Problem List: (1) Diabetes mellitus out of control ICD Codes: E11.65 - Type 2 diabetes mellitus with hyperglycemia SNOMED: 05177632, 777105869 (2) DKA (diabetic ketoacidosis) ICD Codes: E13.10 - Other specified diabetes mellitus with ketoacidosis without coma SNOMED: 460836868, [id number] Qualifiers: Qualified Codes: E13.10 - Other specified diabetes mellitus with ketoacidosis without coma (3) Alcoholic cirrhosis of liver ICD Codes: K70.30 - Alcoholic cirrhosis of liver without ascites SNOMED: 229768288, 601403343 Qualifiers: Qualified Codes: K70.30 - Alcoholic cirrhosis of liver without ascites (4) Abscess or cellulitis of groin SNOMED: 214609403 Assessment/Plan increase Levemir to 18 units daily increase Novolog to 6 units ac tid continue NISS he will stay on insulin after discharge Subjective Allergies: Coded Allergies: No Known Allergies (Unverified , 12/08/17) All Systems: reviewed and negative except above Subjective events noted glucose values mostly stable and only slightly on higher side Objective Last 24 Hour Vital Signs Date Time Temp Pulse Resp B/P (MAP) Pulse Ox O2 Delivery O2 Flow Rate FiO2 09/21/18 04:00 98.1 86 18 99/59 (72) 96 09/21/18 00:00 97.7 74 16 102/64 (77) 96 09/20/18 21:00 Room Air 09/20/18 20:00 97.9 105 20 103/64 (77) 99 09/20/18 16:00 98.1 105 18 99/61 (74) 97 09/20/18 12:44 96.5 104 17 97/62 (74) 98 09/20/18 09:00 Room Air 09/20/18 08:00 98.0 108 18 101/67 (78) 97 Intake and Output 09/20/18 09/21/18 19:00 07:00 Intake Total 1025.000 ml 250.000 ml Output Total 350 ml Balance 675.000 ml 250.000 ml Intake Oral 720 ml IV Total 305.000 ml 250.000 ml Output Urine Total 350 ml # Voids 4 3 Height (Feet): 5 Height (Inches): 5.00 Weight (Pounds): 157 General Appearance: no apparent distress Neck: normal alignment Cardiovascular: regular rhythm Respiratory/Chest: lungs clear Abdomen: normal bowel sounds Pelvis: normal external exam Objective Current Medications Medications (Trade) Dose Ordered Sig/Jl Route PRN Reason Start Time Stop Time Status Last Admin Dose Admin Ceftriaxone Sodium 1 gm/ Dextrose 55 ml @ 110 mls/hr Q24H IVPB 09/18/18 12:00 09/24/18 11:59 09/20/18 11:46 Dextrose (Dextrose 50%) 25 ml Q30M PRN IV Hypoglycemia 09/17/18 19:00 10/17/18 09:59 Dextrose (Dextrose 50%) 50 ml Q30M PRN IV Hypoglycemia 09/17/18 19:00 10/17/18 09:59 Hydromorphone HCl (Dilaudid) 0.5 mg Q4H PRN IVP For Pain 09/19/18 17:31 09/26/18 17:30 09/20/18 00:29 Insulin Aspart (NovoLOG) Q6HR SUBQ 09/18/18 00:00 10/17/18 11:59 09/21/18 05:45 Insulin Aspart (NovoLOG) 5 units BEFORE MEALS SUBQ 09/19/18 11:30 10/17/18 11:29 09/21/18 05:45 Insulin Detemir (Levemir) 15 units DAILY SUBQ 09/19/18 09:00 10/17/18 10:59 09/20/18 08:31 Vancomycin HCl (Vanco rx to dose) 1 ea DAILY PRN MISC Per rx protocol 09/19/18 11:00 10/19/18 10:59 Vancomycin HCl/ Dextrose 250 ml @ 166.667 mls/hr Q12H IVPB 09/19/18 12:30 09/24/18 12:29 09/21/18 00:29 Item Value Date Time Bedside Blood Glucose 175 mg/dl H 09/21/18 0600 Bedside Blood Glucose 203 mg/dl H 09/21/18 0036 Bedside Blood Glucose 187 mg/dl H 09/20/18 1800 Bedside Blood Glucose 173 mg/dl H 09/20/18 1234 Bedside Blood Glucose 183 mg/dl H 09/20/18 0831 Bedside Blood Glucose 183 mg/dl H 09/20/18 0626 Aaron Salvador MD Sep 21, 2018 07:19
[2018-09-21 07:45] LABS: ANION GAP 9 mmol/L (5-15); BLOOD UREA NITROGEN 5 mg/dL (7-18); CARBON DIOXIDE 21 MMOL/L (21-32); CHLORIDE 106 MMOL/L (98-107); CREATININE 0.9 MG/DL (0.55-1.30); PHOSPHORUS 1.8 MG/DL (2.5-4.9); POTASSIUM 3.3 MMOL/L (3.5-5.1); SODIUM 136 MMOL/L (136-145)
[2018-09-21 08:00] VITALS: BP 104/67
[2018-09-21] MEDS ORDERED: LEVEMIR FL100 UNIT/1 SUBQ (08:47)
[2018-09-21] MEDS ORDERED: NOVOLOG100 UNITS1 SUBQ (08:47)
--- NOTE | 2018-09-21 08:51 | Pulmonology Progress Note ---
Assessment/Plan Assessment/Plan IMPRESSION: 1. Diabetic ketoacidosis. 2. Alcoholic liver cirrhosis. 3. Groin abscess; s/p I&D DISCUSSION: DC abx Insulin and diabetes control DC home Subcut insulin outpt followup with surgery Friday Subjective Interval Events: Better Constitutional: Reports: no symptoms HEENT: Repors: no symptoms Respiratory: Reports: no symptoms Cardiovascular: Reports: no symptoms Gastrointestinal/Abdominal: Reports: no symptoms Genitourinary: Reports: no symptoms Allergies: Coded Allergies: No Known Allergies (Unverified , 12/08/17) Objective Last 24 Hour Vital Signs Date Time Temp Pulse Resp B/P (MAP) Pulse Ox O2 Delivery O2 Flow Rate FiO2 09/21/18 08:00 98.2 103 21 104/67 (79) 99 09/21/18 04:00 98.1 86 18 99/59 (72) 96 09/21/18 00:00 97.7 74 16 102/64 (77) 96 09/20/18 21:00 Room Air 09/20/18 20:00 97.9 105 20 103/64 (77) 99 09/20/18 16:00 98.1 105 18 99/61 (74) 97 09/20/18 12:44 96.5 104 17 97/62 (74) 98 09/20/18 09:00 Room Air Intake and Output 09/20/18 09/21/18 19:00 07:00 Intake Total 1025.000 ml 250.000 ml Output Total 350 ml Balance 675.000 ml 250.000 ml Intake Oral 720 ml IV Total 305.000 ml 250.000 ml Output Urine Total 350 ml # Voids 4 3 General Appearance: no acute distress HEENT: normocephalic Respiratory/Chest: chest wall non-tender, lungs clear Cardiovascular: normal peripheral pulses, normal rate Abdomen: normal bowel sounds Microbiology Date/Time Source Procedure Growth Status 09/19/18 14:00 Body Fluid Gram Stain - Final Resulted 09/19/18 14:00 Body Fluid Wound Culture Pending Resulted Laboratory Tests 09/21/18 06:55: Sodium Level 136, Potassium Level 3.3L, Chloride Level 106, Carbon Dioxide Level 21, Anion Gap 9, Blood Urea Nitrogen 5L, Creatinine 0.9, Estimat Glomerular Filtration Rate > 60, Glucose Level 167H, Calcium Level 8.0L, Phosphorus Level 1.8L, Magnesium Level 1.1L Current Medications Medications (Trade) Dose Ordered Sig/Jl Route PRN Reason Start Time Stop Time Status Last Admin Dose Admin Ceftriaxone Sodium 1 gm/ Dextrose 55 ml @ 110 mls/hr Q24H IVPB 09/18/18 12:00 09/24/18 11:59 09/20/18 11:46 Dextrose (Dextrose 50%) 25 ml Q30M PRN IV Hypoglycemia 09/17/18 19:00 10/17/18 09:59 Dextrose (Dextrose 50%) 50 ml Q30M PRN IV Hypoglycemia 09/17/18 19:00 10/17/18 09:59 Hydromorphone HCl (Dilaudid) 0.5 mg Q4H PRN IVP For Pain 09/19/18 17:31 09/26/18 17:30 09/20/18 00:29 Insulin Aspart (NovoLOG) Q6HR SUBQ 09/18/18 00:00 10/17/18 11:59 09/21/18 05:45 Insulin Aspart (NovoLOG) 6 units BEFORE MEALS SUBQ 09/21/18 11:30 10/17/18 11:29 Insulin Detemir (Levemir) 18 units DAILY SUBQ 09/21/18 09:00 10/17/18 10:59 Vancomycin HCl (Vanco rx to dose) 1 ea DAILY PRN MISC Per rx protocol 09/19/18 11:00 10/19/18 10:59 Vancomycin HCl/ Dextrose 250 ml @ 166.667 mls/hr Q12H IVPB 09/19/18 12:30 09/24/18 12:29 09/21/18 00:29 Juan Carlos Ca MD Sep 21, 2018 08:51
[2018-09-21] MEDS ORDERED: Levemir Flexpen SUBQ SCH (09:00)
--- NOTE | 2018-09-21 09:04 | Nephrology Progress Note ---
Assessment/Plan Assessment/Plan A/P 1) [place]- resolved 2) E- ABN - replacing K+ / Mg and phos 3) Dehydration- resolved 4) DKA- resolved 5) Left groin swelling- - multiloculated left groin abscess drained - Abx per ID Subjective Date patient seen: Sep 21, 2018 Time patient seen: 09:04 ROS Limited/Unobtainable: No Allergies: Coded Allergies: No Known Allergies (Unverified , 12/08/17) Subjective Patient feels better, abscess drained and groin sore Objective Last 24 Hour Vital Signs Date Time Temp Pulse Resp B/P (MAP) Pulse Ox O2 Delivery O2 Flow Rate FiO2 09/21/18 08:00 98.2 103 21 104/67 (79) 99 09/21/18 04:00 98.1 86 18 99/59 (72) 96 09/21/18 00:00 97.7 74 16 102/64 (77) 96 09/20/18 21:00 Room Air 09/20/18 20:00 97.9 105 20 103/64 (77) 99 09/20/18 16:00 98.1 105 18 99/61 (74) 97 09/20/18 12:44 96.5 104 17 97/62 (74) 98 Intake and Output 09/20/18 09/21/18 19:00 07:00 Intake Total 1025.000 ml 250.000 ml Output Total 350 ml Balance 675.000 ml 250.000 ml Intake Oral 720 ml IV Total 305.000 ml 250.000 ml Output Urine Total 350 ml # Voids 4 3 Laboratory Tests 09/21/18 06:55: Sodium Level 136, Potassium Level 3.3L, Chloride Level 106, Carbon Dioxide Level 21, Anion Gap 9, Blood Urea Nitrogen 5L, Creatinine 0.9, Estimat Glomerular Filtration Rate > 60, Glucose Level 167H, Calcium Level 8.0L, Phosphorus Level 1.8L, Magnesium Level 1.1L Height (Feet): 5 Height (Inches): 5.00 Weight (Pounds): 157 General Appearance: no apparent distress, alert EENT: normal ENT inspection Neck: normal alignment, supple Cardiovascular: normal rate, regular rhythm Respiratory/Chest: lungs clear, normal breath sounds Abdomen: non tender, soft Edema: no edema noted Arm (L), no edema noted Arm (R), no edema noted Leg (L), no edema noted Leg (R), no edema noted Pedal (L), no edema noted Pedal (R), no edema noted Generalized Mau Malone MD Sep 21, 2018 09:04
[2018-09-21] MEDS ORDERED: Potassium Phosphate 30 MM in NS 275 ML IV SCH (10:00)
[2018-09-21] MEDS ORDERED: NovoLOG Insulin Flexpen SUBQ SCH (11:30)
[2018-09-21 12:00] VITALS: BP 105/67
[2018-09-21] MEDS: cefTRIAXone 1 GM in D5W 55 ML IVPB SCH (12:00)
--- NOTE | 2018-09-21 13:00 | General Surgery Progress Note ---
General Surgery-Progress Note Subjective Procedure Performed incision and drainage of left groin abscess Symptoms: improved, tolerating diet, passing flatus Additional Comments pain improved. no n/v/f/c. Objective Last 24 Hour Vital Signs Date Time Temp Pulse Resp B/P (MAP) Pulse Ox O2 Delivery O2 Flow Rate FiO2 09/21/18 12:00 98.1 94 21 105/67 (80) 99 09/21/18 09:00 Room Air 09/21/18 08:00 98.2 103 21 104/67 (79) 99 09/21/18 04:00 98.1 86 18 99/59 (72) 96 09/21/18 00:00 97.7 74 16 102/64 (77) 96 09/20/18 21:00 Room Air 09/20/18 20:00 97.9 105 20 103/64 (77) 99 09/20/18 16:00 98.1 105 18 99/61 (74) 97 I&O Intake and Output 09/20/18 09/21/18 19:00 07:00 Intake Total 1025.000 ml 250.000 ml Output Total 350 ml Balance 675.000 ml 250.000 ml Intake Oral 720 ml IV Total 305.000 ml 250.000 ml Output Urine Total 350 ml # Voids 4 3 Dressing: saturated Wound: other - 2cm left pubic incision clean, open, with drainage. no active infection noted. suture stable in distal aspect. edema / cellulitis improved Drains: none Cardiovascular: RSR Respiratory: clear Abdomen: soft, non-tender, present bowel sounds Extremities: no cyanosis Laboratory Tests Test 09/21/18 06:55 09/21/18 11:30 Sodium Level 136 MMOL/L (136-145) Potassium Level 3.3 MMOL/L (3.5-5.1) L Chloride Level 106 MMOL/L (98-107) Carbon Dioxide Level 21 MMOL/L (21-32) Anion Gap 9 mmol/L (5-15) Blood Urea Nitrogen 5 mg/dL (7-18) L Creatinine 0.9 MG/DL (0.55-1.30) Estimat Glomerular Filtration Rate > 60 mL/min (>60) Glucose Level 167 MG/DL (74-106) H Calcium Level 8.0 MG/DL (8.5-10.1) L Phosphorus Level 1.8 MG/DL (2.5-4.9) L Magnesium Level 1.1 MG/DL (1.8-2.4) L Vancomycin Level Trough 21.2 ug/mL (5.0-12.0) H Plan Problems: (1) Abscess or cellulitis of groin (2) Cellulitis of groin Assessment & Plan: leukocytosis on admission area of induration on exam in left groin old area of healing induration on right inguinal/femoral region ultrasound noted currently stable developed abscess with fluctuance yesterday. s/p I&D. had some oozing and saturation of dressings after I&D requiring single stitch placement for hemostasis. since hemostatic and improved. patient states pain improved. packing and dressings changed wound clean and dry no bleeding. no more pus noted. cellulitis improved new packing and dressings applied. cont with current care d/c planning packing and dressings TID; patient states he will do himself d/c home f/u with me this 09/23 at 12p. can also f/u with pcp or another surgeon for wound check and suture removal all d/c and wound care instructions given to patient in detail. he expressed understanding and feedback loop on plan thank you. will follow with Giovanni Chu Sep 21, 2018 13:00
[2018-09-21 16:00] VITALS: BP 99/59
[2018-09-21] MEDS ORDERED: NS 275ml ONE (16:44)
[2018-09-21] MEDS ORDERED: Tubing IV Secondary IV ONE (16:44)
[2018-09-21] MEDS ORDERED: Vancomycin 1gm/D5W 275ml IVPB SCH ×2 (21:00)
--- NOTE | 2018-09-24 12:18 | Discharge Summary ---
Discharge Summary Discharge Summary _ DATE OF ADMISSION: 09/15/2018 DATE OF DISCHARGE: 09/21/2018 REASON FOR ADMISSION: 42 years old male with history of alcoholic liver cirrhosis and insulin dependent diabetes mellitus, stopped drinking several months ago, presented with generalized weakness ,decreased appetite and altered mental status for few days. On evaluation patient was found to have significant hyperglycemia with evidence of diabetic ketoacidosis. According to family patient was not taking his medication for several months. Laboratory workup revealed leukocytosis WBC 15.1, hemoglobin 9.8 ,platelet count 79 . Potassium 3.0. Magnesium 1.6. Phosphorus 0.7 . Creatinine 1.4. Blood glucose 526. CO2 less than 5. Anion gap 24. Troponin negative . Ammonia level 86. Urinalysis with evidence of UTI, +4 glucose, +4 ketones, +2 blood . Chest x-ray revealed no acute cardia pulmonary pathology. Patient was admitted with diagnoses of diabetic ketoacidosis and alcoholic liver cirrhosis for further management. CONSULTANTS: ID specialist Dr. Stevens middle school librarian Dr.De Rodriges surgery Dr. Beard preschool director Dr. Salvador HOSPITAL COURSE: Patient admitted to intensive care unit and started on insulin drip per protocol and IV hydration. Electrolytes were corrected as needed. Patient started on PPI. Patient started on lactulose for elevated ammonia. Patient initially kept n.p.o. Security Expert closely followed. When anion gap closed, insulin drip was discontinued and patient started on long-acting Levemir ,short acting NovoLog pre-meals as well as sliding scale of insulin as needed. Hemoglobin A1c 10.2- clearly not at goal. When patient was more awake, patient was educated on diabetic diet and compliance with medication. Anti-glycemic regimen optimized further during patient 's stay in the hospital. Blood sugar stable prior to discharge. [employer] Saw Operator closely followed. patient initially present with acute kidney injury, which resolved. Renal parameters and electrolytes were closely monitored. Electrolytes were corrected as needed. Nephrotoxics were avoided. Infectious disease specialist followed. Patient initially started on empiric antibiotics. Urine culture revealed E. coli. Patient noted to have bilateral inguinal swelling ,left more than right. Patient subsequently undergone testicular and scrotal ultrasound ,which revealed findings suspicious for multiloculated left groin abscess. Left-sided scrotal wall edema ,nonspecific, possibly indicative of cellulitis . Normal testicles otherwise. Surgery consult was requested. Patient subsequently undergone incision and drainage of left groin abscess. Wound culture was positive for Staphylococcus aureus. Antibiotic regimen optimized as per ID recommendation. Pain management was addressed. Ammonia trended down from 86 to 51. Continue lactulose at home. etal status somewhat improved. Altered mental status was due to hepatic encephalopathy due to liver cirrhosis and noncompliance with medications at home. Overall prognosis not favorable . Patient stabilized and was ready for discharge home. FINAL DIAGNOSES: Diabetic ketoacidosis -resolved Diabetes mellitus out of control Alcoholic liver cirrhosis Left groin abscess Status post incision and drainage og left groin abscess E coli UTI Altered mental status due to hepatic encephalopathy Acute kidney injury -resolved Dehydration- resolved Noncompliance DISCHARGE MEDICATIONS: See Medication Reconciliation list. DISCHARGE INSTRUCTIONS: Patient was discharged home. Follow up with primary care provider in one week. I have been assigned to dictate discharge summary for this account. I was not involved in the patient's management. Mera Warner NP Sep 24, 2018 12:18
== END 2018-09-21 16:45 | disposition home or self-care (01) | DRG 420 ==
LOC: EDBD 00:20 → EMR 00:48 → EDBEDREQ 01:47 → ICU 01:57 → EDBEDREQ 01:59 → EDBEDREQSVC 01:59 → EDBEDREQ 02:25 → 4E 09-17 18:30
PROC: 0H9AXZZ Drainage of Inguinal Skin, External Approach (ICD-10-PCS; 2018-09-19)
PROC: 30233N1 Transfusion of Nonautologous Red Blood Cells into Peripheral Vein, Percutaneous Approach (ICD-10-PCS; principal; 2018-09-20)
DX: E11.10 Type 2 diabetes mellitus with ketoacidosis without coma (principal); N17.9 Acute kidney failure, unspecified; K70.30 Alcoholic cirrhosis of liver without ascites; L02.214 Cutaneous abscess of groin; K72.90 Hepatic failure, unspecified without coma; N39.0 Urinary tract infection, site not specified; Z79.4 Long term (current) use of insulin; B96.20 Unspecified Escherichia coli [E. coli] as the cause of diseases classified elsewhere; E86.0 Dehydration; Z91.19 Patient's noncompliance with other medical treatment and regimen; E87.6 Hypokalemia
CPT/HCPCS: 36415; 71045; 76870; 80048; 80053; 80202; 81001; 81003; 82140; 82248; 82962; 83036; 83690; 83735; 84100; 84132; 84484; 85007; 85025; 85610; 85730; 86850; 86900; 86901; 86920; 87070; 87081; 87086; 87181; 87205; 93005; 93970; 96361; 96365; 96366; 96367; 96375; 99291; J1815; J8499; S5561